=== PATIENT | male | born 1930 | race Caucasian/White ===

== ENCOUNTER 2016-09-15 19:45 | Inpatient (IN) | payer MEDICARE ==
[2016-09-15] MEDS ORDERED: SODIUM CHLORIDE 0.9% 500 ML IV ONE (19:48)
--- NOTE | 2016-09-15 19:55 | ED ---
General Adult HPI - General Source: RN notes reviewed <Rafael Chaudhary - Last Filed: 09/15/16 20:45> <Alonso Haney - Last Filed: 09/15/16 22:11> - General Stated complaint: CVA symptoms Time Seen by Provider: 09/15/16 19:45 - History of Present Illness Initial comments: This is an 85-year-old male who presents emergency Department was extremely hard of hearing. EMS was called seen for a syncopal episode. When they arrived the patient was alert and oriented 4. However in route the patient became unresponsive upon arrival to the emergency department the patient was lethargic but arousable and able to move all 4 extremities and answer very basic questions. Patient is extremely hard of hearing however patient states she has no headache he denies any chest pain he denies any palpitations. Denies any shortness of breath or difficulty breathing. Patient denies any recent fever. Patient denies any abdominal pain patient denies nausea vomiting diarrhea. Patient denies any recent injury or trauma. Patient then when EMS arrived at the house according to EMS because at this time he wasn't sure he was in the hospital and at the house he would've definitely known where he was according to EMS. (Rafael Chaudhary) - Related Data Home Medications Medication Instructions Recorded Confirmed Aspirin EC [Ecotrin Low Dose] 162 mg PO DAILY 09/15/16 09/15/16 Atenolol [Tenormin] 25 mg PO DAILY 09/15/16 09/15/16 Simvastatin [Zocor] 20 mg PO Q48H 09/15/16 09/15/16 Allergies Allergy/AdvReac Type Severity Reaction Status Date / Time No Known Allergies Allergy Verified 09/15/16 20:44 Review of Systems ROS Other: All systems not noted in ROS Statement are negative. <Rafael Chaudhary - Last Filed: 09/15/16 20:45> ROS Other: All systems not noted in ROS Statement are negative. <Alonso Haney - Last Filed: 09/15/16 22:11> ROS Statement: Those systems with pertinent positive or pertinent negative responses have been documented in the HPI. General Exam <Rafael Chaudhary - Last Filed: 09/15/16 20:45> <Alonso Haney - Last Filed: 09/15/16 22:11> - General Exam Comments Initial Comments: GENERAL: Patient is well-developed and well-nourished. Patient is nontoxic and well- hydrated and is in no acute distress. Blood patient is lethargic but arousable with loud verbal ENT: Neck is soft and supple. No significant lymphadenopathy is noted. Oropharynx is clear. Moist mucous membranes. Neck has full range of motion without eliciting any pain. EYES: The sclera were anicteric and conjunctiva were pink and moist. Extraocular movements were intact and pupils were equal round and reactive to light. Eyelids were unremarkable. PULMONARY: Unlabored respirations. Good breath sounds bilaterally. No audible rales rhonchi or wheezing was noted. CARDIOVASCULAR: There is a regular rate and rhythm without any murmurs gallops or rubs. ABDOMEN: Soft and nontender with normal bowel sounds. No palpable organomegaly was noted. There is no palpable pulsatile mass. SKIN: Skin is clear with no lesions or rashes and otherwise unremarkable. NEUROLOGIC: Patient is alert and oriented unable to assess because I don't think he hears the questions accurately but does follow all simple commands. Cranial nerves II through XII are grossly intact. Motor and sensory are also intact. Normal speech, volume and content. Symmetrical smile. MUSCULOSKELETAL: Normal extremities with adequate strength and full range of motion. No lower extremity swelling or edema. No calf tenderness. LYMPHATICS: No significant lymphadenopathy is noted PSYCHIATRIC: Normal psychiatric evaluation. (Rafael Chaudhary) Medical Decision Making - Lab Data Result diagrams: 09/15/16 19:56 <Rafael Chaudhary - Last Filed: 09/15/16 20:45> - Lab Data Result diagrams: 09/15/16 19:56 09/15/16 19:56 <Alonso Haney - Last Filed: 09/15/16 22:11> - Medical Decision Making Patient's EKG shows sinus rhythm at 71 bpm. 160 QRS is under 24 Q-T intervals 454 QTC is 493. Patient has a right bundle branch block. Dr. Haney will be taking over the care of this patient at 9 PM (Rafael Chaudhary) Patient reevaluated by myself, Dr. Haney. Patient is drowsy and is arousable to touch. Patient does attempt to talk. Patient does have some squeezing of his left hand however is able to fully move it and stop doing this. Patient moves all extremities. Patient has limited ability to follow commands. Etiology of syncopal episodes and change in mental status is not clear at this time. Stroke is high in the differential as his seizure. Patient will need to be seen by neurology for further evaluation. Dr. Luisa kelley for admission for Dr. Velazquez. (Alonso Haney) - Lab Data Lab Results 09/15/16 09/15/16 09/15/16 Range/Units 19:56 19:56 19:56 WBC 13.7 H (3.8-10.6) k/uL RBC 5.07 (4.30-5.90) m/uL Hgb 16.5 (13.0-17.5) gm/dL Hct 52.1 (39.0-53.0) % MCV 102.8 H (80.0-100.0) fL MCH 32.5 (25.0-35.0) pg MCHC 31.6 (31.0-37.0) g/dL RDW 13.4 (11.5-15.5) % Plt Count 168 (150-450) k/uL Neutrophils % 77 % Lymphocytes % 16 % Monocytes % 5 % Eosinophils % 1 % Basophils % 1 % Neutrophils # 10.5 H (1.3-7.7) k/uL Lymphocytes # 2.2 (1.0-4.8) k/uL Monocytes # 0.6 (0-1.0) k/uL Eosinophils # 0.1 (0-0.7) k/uL Basophils # 0.1 (0-0.2) k/uL Macrocytosis Slight Sodium 141 (137-145) mmol/L Potassium 5.3 H (3.5-5.1) mmol/L Chloride 103 (98-107) mmol/L Carbon Dioxide 20 L (22-30) mmol/L Anion Gap 18 mmol/L BUN 15 (9-20) mg/dL Creatinine 0.79 (0.66-1.25) mg/dL Est GFR (MDRD) Af Amer >60 (>60 ml/min/1.73 sqM) Est GFR (MDRD) Non-Af >60 (>60 ml/min/1.73 sqM) Glucose 140 H (74-99) mg/dL POC Glucose (mg/dL) (75-99) mg/dL POC Glu Mail Service Coordinator ID Calcium 9.5 (8.4-10.2) mg/dL Total Bilirubin 0.9 (0.2-1.3) mg/dL AST 39 (17-59) U/L ALT 18 L (21-72) U/L Alkaline Phosphatase 106 (38-126) U/L Total Creatine Kinase 88 (55-170) U/L CK-MB (CK-2) 2.3 (0.0-2.4) ng/mL CK-MB (CK-2) Rel Index 2.6 Troponin I <0.012 (0.000-0.034) ng/mL Total Protein 8.7 H (6.3-8.2) g/dL Albumin 4.8 (3.5-5.0) g/dL Urine Color Urine Appearance (Clear) Urine pH (5.0-8.0) Ur Specific [place] (1.001-1.035) Urine Protein (Negative) Urine Glucose (UA) (Negative) Urine Ketones (Negative) Urine Blood (Negative) Urine Nitrate (Negative) Urine Bilirubin (Negative) Urine Urobilinogen (<2.0) mg/dL Ur Leukocyte Esterase (Negative) Urine RBC (0-5) /hpf Urine WBC (0-5) /hpf Hyaline Casts (0-2) /lpf Urine Opiates Screen (NotDetected) Ur Oxycodone Screen (NotDetected) Urine Methadone Screen (NotDetected) Ur Propoxyphene Screen (NotDetected) Ur Barbiturates Screen (NotDetected) U Tricyclic Antidepress (NotDetected) Ur Phencyclidine Scrn (NotDetected) Ur Amphetamines Screen (NotDetected) U Methamphetamines Scrn (NotDetected) U Benzodiazepines Scrn (NotDetected) Urine Cocaine Screen (NotDetected) U Marijuana (THC) Screen (NotDetected) 09/15/16 09/15/16 Range/Units 19:56 20:54 WBC (3.8-10.6) k/uL RBC (4.30-5.90) m/uL Hgb (13.0-17.5) gm/dL Hct (39.0-53.0) % MCV (80.0-100.0) fL MCH (25.0-35.0) pg MCHC (31.0-37.0) g/dL RDW (11.5-15.5) % Plt Count (150-450) k/uL Neutrophils % % Lymphocytes % % Monocytes % % Eosinophils % % Basophils % % Neutrophils # (1.3-7.7) k/uL Lymphocytes # (1.0-4.8) k/uL Monocytes # (0-1.0) k/uL Eosinophils # (0-0.7) k/uL Basophils # (0-0.2) k/uL Macrocytosis Sodium (137-145) mmol/L Potassium (3.5-5.1) mmol/L Chloride (98-107) mmol/L Carbon Dioxide (22-30) mmol/L Anion Gap mmol/L BUN (9-20) mg/dL Creatinine (0.66-1.25) mg/dL Est GFR (MDRD) Af Amer (>60 ml/min/1.73 sqM) Est GFR (MDRD) Non-Af (>60 ml/min/1.73 sqM) Glucose (74-99) mg/dL POC Glucose (mg/dL) 138 H (75-99) mg/dL POC Glu Mail Service Coordinator ID Fanny Hadley Calcium (8.4-10.2) mg/dL Total Bilirubin (0.2-1.3) mg/dL AST (17-59) U/L ALT (21-72) U/L Alkaline Phosphatase (38-126) U/L Total Creatine Kinase (55-170) U/L CK-MB (CK-2) (0.0-2.4) ng/mL CK-MB (CK-2) Rel Index Troponin I (0.000-0.034) ng/mL Total Protein (6.3-8.2) g/dL Albumin (3.5-5.0) g/dL Urine Color Yellow Urine Appearance Clear (Clear) Urine pH 5.5 (5.0-8.0) Ur Specific [place] 1.020 (1.001-1.035) Urine Protein 1+ H (Negative) Urine Glucose (UA) Negative (Negative) Urine Ketones 1+ H (Negative) Urine Blood Negative (Negative) Urine Nitrate Negative (Negative) Urine Bilirubin Negative (Negative) Urine Urobilinogen 2.0 (<2.0) mg/dL Ur Leukocyte Esterase Negative (Negative) Urine RBC 1 (0-5) /hpf Urine WBC 1 (0-5) /hpf Hyaline Casts 66 H (0-2) /lpf Urine Opiates Screen Not Detected (NotDetected) Ur Oxycodone Screen Not Detected (NotDetected) Urine Methadone Screen Not Detected (NotDetected) Ur Propoxyphene Screen Not Detected (NotDetected) Ur Barbiturates Screen Not Detected (NotDetected) U Tricyclic Antidepress Not Detected (NotDetected) Ur Phencyclidine Scrn Not Detected (NotDetected) Ur Amphetamines Screen Not Detected (NotDetected) U Methamphetamines Scrn Not Detected (NotDetected) U Benzodiazepines Scrn Not Detected (NotDetected) Urine Cocaine Screen Not Detected (NotDetected) U Marijuana (THC) Screen Not Detected (NotDetected) Disposition <Rafael Chaudhary - Last Filed: 09/15/16 20:45> <Alonso Haney - Last Filed: 09/15/16 22:11> Clinical Impression: Syncope, Altered mental status Disposition: ADMITTED IP TO THIS [facility] Condition: Serious
--- NOTE | 2016-09-15 20:24 | CT ---
EXAMINATION TYPE: CT brain wo con DATE OF EXAM: 09/15/2016 8:15 PM COMPARISON: NONE HISTORY: Right sided gaze and then patient became unresponsive. CT DLP: 1048.40 mGycm Automated exposure control for dose reduction was used. FINDINGS: There is cerebral cortical atrophy. There is moderate patchy hypodensity in the periventricular white matter. There is no mass effect nor midline shift. There is no sign of intracranial hemorrhage. Calv arium is intact. There is mild mucosal thickening in the right maxillary sinus. IMPRESSION: Moderate cerebral atrophy and chronic small vessel ischemia. No acute intracranial abnormality.
[2016-09-15 20:38] LABS: Basophils # (A) 0.1 k/uL (0-0.2); Basophils % (A) 1 %; CH 32.5; CHCM 31.7; Eosinophils # (A) 0.1 k/uL (0-0.7); Eosinophils % (A) 1 %; HCT 52.1 % (39.0-53.0); HDW 2.29; HGB 16.5 gm/dL (13.0-17.5); Luc # (Auto) 0.15; Luc % (Auto) 1; Lymphocytes # (A) 2.2 k/uL (1.0-4.8); Lymphocytes % (A) 16 %; MCH 32.5 pg (25.0-35.0); MCHC 31.6 g/dL (31.0-37.0); MCV 102.8 fL (80.0-100.0); Macrocytosis Slight; Mean Platelet Volume 10.1; Monocytes # (A) 0.6 k/uL (0-1.0); Monocytes % (A) 5 %; Neutrophils # (A) 10.5 k/uL (1.3-7.7); Neutrophils % (A) 77 %; RBC 5.07 m/uL (4.30-5.90); RDW 13.4 % (11.5-15.5); WBC 13.7 k/uL (3.8-10.6); WBC (Perox) 13.06
[2016-09-15 20:41] LABS: Appearance,Urine Clear (Clear); Bilirubin,Urine Negative (Negative); Glucose,Urine (UA) Negative (Negative); Ketones,Urine 1+ (Negative); Leukocyte Esterase,Urine Negative (Negative); Nitrite,Urine Negative (Negative); PH, Urine 5.5 (5.0-8.0); Particle Count 1510; Protein,Urine 1+ (Negative); RBC,Urine 1 /hpf (0-5); UA Billing (MACRO vs. MICRO) MICRO; WBC,Urine 1 /hpf (0-5)
--- NOTE | 2016-09-15 20:48 | XR ---
EXAMINATION TYPE: XR chest 1V DATE OF EXAM: 09/15/2016 8:33 PM COMPARISON: NONE HISTORY: Altered mental status TECHNIQUE: Single frontal view of the chest is obtained. FINDINGS: There is bilateral extensive calcified pleural plaque. There is no heart failure. There ar e sternal wires. Heart size is probably normal. There is no pleural effusion. 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 IMPRESSION: Extensive calcified pleural plaque. No acute lung disease. No heart failure.
[2016-09-15 20:50] LABS: ALT 18 U/L (21-72); AST 39 U/L (17-59); Alkaline Phosphatase 106 U/L (38-126); Anion Gap 18 mmol/L; Blood Urea Nitrogen 15 mg/dL (9-20); Calcium 9.5 mg/dL (8.4-10.2); Carbon Dioxide 20 mmol/L (22-30); Chloride 103 mmol/L (98-107); Glucose 140 mg/dL (74-99); Non-African American GFR(MDRD) >60 (>60 ml/min/1.73 sqM); Sodium 141 mmol/L (137-145); Total Bilirubin 0.9 mg/dL (0.2-1.3); Total Protein 8.7 g/dL (6.3-8.2)
[2016-09-15 20:54] LABS: Potassium 5.3 mmol/L (3.5-5.1)
[2016-09-15] MEDS ORDERED: hydrALAZINE HCL 20 MG/ML 1 ML VIAL IVP STA (20:58)
[2016-09-15 20:59] LABS: Creatine Kinase 88 U/L (55-170)
[2016-09-15 21:12] LABS: Creatine Kinase MB 2.3 ng/mL (0.0-2.4); Troponin I <0.012 ng/mL (0.000-0.034)
[2016-09-15 21:14] LABS: Glucose,Whole Blood 138 mg/dL (75-99)
[2016-09-15] MEDS ORDERED: PHENYTOIN SODIUM INJ 1,000 MG in SODIUM CHLORIDE 0.9% 100 ML IVPB STA (22:07)
[2016-09-15 22:09] LABS: INR 1.1 (<1.1); Partial Thromboplastin Time 23.8 sec (22.0-30.0); Prothrombin Time 11.1 sec (9.0-12.0)
[2016-09-15] MEDS ORDERED: ASPIRIN 325 MG TAB PO STA (22:12)
[2016-09-15] MEDS: SODIUM CHLORIDE 0.9% 1,000 ML IV SCH (22:38)
--- NOTE | 2016-09-15 22:52 | ED ---
Medical Decision Making - Medical Decision Making GCS was 11. - Lab Data Result diagrams: 09/15/16 19:56 09/15/16 19:56 Lab Results 09/15/16 09/15/16 09/15/16 Range/Units 19:56 19:56 19:56 WBC 13.7 H (3.8-10.6) k/uL RBC 5.07 (4.30-5.90) m/uL Hgb 16.5 (13.0-17.5) gm/dL Hct 52.1 (39.0-53.0) % MCV 102.8 H (80.0-100.0) fL MCH 32.5 (25.0-35.0) pg MCHC 31.6 (31.0-37.0) g/dL RDW 13.4 (11.5-15.5) % Plt Count 168 (150-450) k/uL Neutrophils % 77 % Lymphocytes % 16 % Monocytes % 5 % Eosinophils % 1 % Basophils % 1 % Neutrophils # 10.5 H (1.3-7.7) k/uL Lymphocytes # 2.2 (1.0-4.8) k/uL Monocytes # 0.6 (0-1.0) k/uL Eosinophils # 0.1 (0-0.7) k/uL Basophils # 0.1 (0-0.2) k/uL Macrocytosis Slight PT (9.0-12.0) sec INR (<1.1) APTT (22.0-30.0) sec Sodium 141 (137-145) mmol/L Potassium 5.3 H (3.5-5.1) mmol/L Chloride 103 (98-107) mmol/L Carbon Dioxide 20 L (22-30) mmol/L Anion Gap 18 mmol/L BUN 15 (9-20) mg/dL Creatinine 0.79 (0.66-1.25) mg/dL Est GFR (MDRD) Af Amer >60 (>60 ml/min/1.73 sqM) Est GFR (MDRD) Non-Af >60 (>60 ml/min/1.73 sqM) Glucose 140 H (74-99) mg/dL POC Glucose (mg/dL) (75-99) mg/dL POC Glu Event Sales Assistant ID Calcium 9.5 (8.4-10.2) mg/dL Total Bilirubin 0.9 (0.2-1.3) mg/dL AST 39 (17-59) U/L ALT 18 L (21-72) U/L Alkaline Phosphatase 106 (38-126) U/L Total Creatine Kinase 88 (55-170) U/L CK-MB (CK-2) 2.3 (0.0-2.4) ng/mL CK-MB (CK-2) Rel Index 2.6 Troponin I <0.012 (0.000-0.034) ng/mL Total Protein 8.7 H (6.3-8.2) g/dL Albumin 4.8 (3.5-5.0) g/dL Urine Color Urine Appearance (Clear) Urine pH (5.0-8.0) Ur Specific [place] (1.001-1.035) Urine Protein (Negative) Urine Glucose (UA) (Negative) Urine Ketones (Negative) Urine Blood (Negative) Urine Nitrate (Negative) Urine Bilirubin (Negative) Urine Urobilinogen (<2.0) mg/dL Ur Leukocyte Esterase (Negative) Urine RBC (0-5) /hpf Urine WBC (0-5) /hpf Hyaline Casts (0-2) /lpf Urine Opiates Screen (NotDetected) Ur Oxycodone Screen (NotDetected) Urine Methadone Screen (NotDetected) Ur Propoxyphene Screen (NotDetected) Ur Barbiturates Screen (NotDetected) U Tricyclic Antidepress (NotDetected) Ur Phencyclidine Scrn (NotDetected) Ur Amphetamines Screen (NotDetected) U Methamphetamines Scrn (NotDetected) U Benzodiazepines Scrn (NotDetected) Urine Cocaine Screen (NotDetected) U Marijuana (THC) Screen (NotDetected) 09/15/16 09/15/16 09/15/16 Range/Units 19:56 20:54 21:53 WBC (3.8-10.6) k/uL RBC (4.30-5.90) m/uL Hgb (13.0-17.5) gm/dL Hct (39.0-53.0) % MCV (80.0-100.0) fL MCH (25.0-35.0) pg MCHC (31.0-37.0) g/dL RDW (11.5-15.5) % Plt Count (150-450) k/uL Neutrophils % % Lymphocytes % % Monocytes % % Eosinophils % % Basophils % % Neutrophils # (1.3-7.7) k/uL Lymphocytes # (1.0-4.8) k/uL Monocytes # (0-1.0) k/uL Eosinophils # (0-0.7) k/uL Basophils # (0-0.2) k/uL Macrocytosis PT 11.1 (9.0-12.0) sec INR 1.1 (<1.1) APTT 23.8 (22.0-30.0) sec Sodium (137-145) mmol/L Potassium (3.5-5.1) mmol/L Chloride (98-107) mmol/L Carbon Dioxide (22-30) mmol/L Anion Gap mmol/L BUN (9-20) mg/dL Creatinine (0.66-1.25) mg/dL Est GFR (MDRD) Af Amer (>60 ml/min/1.73 sqM) Est GFR (MDRD) Non-Af (>60 ml/min/1.73 sqM) Glucose (74-99) mg/dL POC Glucose (mg/dL) 138 H (75-99) mg/dL POC Glu Event Sales Assistant ID Fanny Hadley Calcium (8.4-10.2) mg/dL Total Bilirubin (0.2-1.3) mg/dL AST (17-59) U/L ALT (21-72) U/L Alkaline Phosphatase (38-126) U/L Total Creatine Kinase (55-170) U/L CK-MB (CK-2) (0.0-2.4) ng/mL CK-MB (CK-2) Rel Index Troponin I (0.000-0.034) ng/mL Total Protein (6.3-8.2) g/dL Albumin (3.5-5.0) g/dL Urine Color Yellow Urine Appearance Clear (Clear) Urine pH 5.5 (5.0-8.0) Ur Specific [place] 1.020 (1.001-1.035) Urine Protein 1+ H (Negative) Urine Glucose (UA) Negative (Negative) Urine Ketones 1+ H (Negative) Urine Blood Negative (Negative) Urine Nitrate Negative (Negative) Urine Bilirubin Negative (Negative) Urine Urobilinogen 2.0 (<2.0) mg/dL Ur Leukocyte Esterase Negative (Negative) Urine RBC 1 (0-5) /hpf Urine WBC 1 (0-5) /hpf Hyaline Casts 66 H (0-2) /lpf Urine Opiates Screen Not Detected (NotDetected) Ur Oxycodone Screen Not Detected (NotDetected) Urine Methadone Screen Not Detected (NotDetected) Ur Propoxyphene Screen Not Detected (NotDetected) Ur Barbiturates Screen Not Detected (NotDetected) U Tricyclic Antidepress Not Detected (NotDetected) Ur Phencyclidine Scrn Not Detected (NotDetected) Ur Amphetamines Screen Not Detected (NotDetected) U Methamphetamines Scrn Not Detected (NotDetected) U Benzodiazepines Scrn Not Detected (NotDetected) Urine Cocaine Screen Not Detected (NotDetected) U Marijuana (THC) Screen Not Detected (NotDetected) Disposition Clinical Impression: Syncope, Altered mental status Disposition: ADMITTED IP TO THIS [facility] Condition: Serious
[2016-09-16 00:38] LABS: Glucose,Whole Blood 162 mg/dL (75-99)
[2016-09-16 01:21] LABS: Glucose,Whole Blood 153 mg/dL (75-99)
[2016-09-16] MEDS ORDERED: RX INFO: IV CONTRAST WAS GIVEN 1 EACH MISC MISCELLANE PRN (02:32)
--- NOTE | 2016-09-16 03:56 | CT ---
EXAMINATION TYPE: CT angio chest DATE OF EXAM: 09/16/2016 3:41 AM COMPARISON: NONE HISTORY: R/O PE, Elevated D-D-dimer CT DLP: 263.10 mGycm Automated exposure control for dose reduction was used. CONTRAST: CTA scan of the thorax is performed with IV Contrast, patient injected with 80 mL of Omnipaque 350, p ulmonary embolism protocol. . FINDINGS: LUNGS: Mild infiltrates and atelectatic changes are noted in both lung bases posteriorly worse on the right side with emphysematous changes. Calcified density pleural plaques are noted in the right lung base and along the bilateral pleural sp aces and a clinical correlation is recommended for asbestos exposure. There is no pleural effusion or pneumothorax seen. The tracheobronchial tree is patent. MEDIASTINUM: There is satisfactory enhancement of the pulmonary artery and its branches, there is no CT evidence for pulmonary embolism. There are no greater than 1 cm hilar or mediastinal lymph nodes. No pericardial effusion is seen. Postsurgical changes of sternotomy are noted. The ascending aorta measures 3.3 cm in greatest AP diam eter without significant aneurysm. OTHER: Mild hypertrophic changes and nodularity is noted in both adrenal glands with possible small adrenal adenomas in the visualized abdomen. Moderate fluid and gas distention of stomach is noted in the abdomen. Multilevel degenerative changes are present in the thoracolumbar spine. Mild old wedge compression fr acture deformities are noted in the thoracic and lumbar vertebrae of chronic nature. There is fluid distended esophagus in the chest. Possibility of inflammatory process of the esophagus cannot be excluded. IMPRESSION: NO EVIDENCE OF ACUTE PULMONARY EMBOLISM. MILD INFILTRATES AND ATELECTATIC CHANGES IN BOTH LUNG BASES WORSE ON THE RIGHT SIDE. CALCIFIED DENSITIES BILATERAL PLEURAL PLAQUES DESCRIBED ABOVE AND A CLINICAL CORRELATION IS RECOMM ENDED FOR ASBESTOS EXPOSURE. THERE IS FLUID DISTENDED ESOPHAGUS AND POSSIBILITY OF INFLAMMATORY PROCESS OF ESOPHAGUS CANNOT BE EXC LUDED.
[2016-09-16 05:13] LABS: CH 32.3; CHCM 32.2; HCT 50.1 % (39.0-53.0); HDW 2.25; MCH 32.2 pg (25.0-35.0); MCV 100.7 fL (80.0-100.0); Mean Platelet Volume 9.2; RBC 4.97 m/uL (4.30-5.90); RDW 13.1 % (11.5-15.5); WBC 10.9 k/uL (3.8-10.6)
[2016-09-16 05:23] LABS: Anion Gap 14 mmol/L; Blood Urea Nitrogen 11 mg/dL (9-20); Calcium 9.2 mg/dL (8.4-10.2); Carbon Dioxide 22 mmol/L (22-30); Chloride 103 mmol/L (98-107); Glucose 124 mg/dL (74-99); Magnesium 1.6 mg/dL (1.6-2.3); Non-African American GFR(MDRD) >60 (>60 ml/min/1.73 sqM); Potassium 4.5 mmol/L (3.5-5.1); Sodium 139 mmol/L (137-145)
[2016-09-16] MEDS ORDERED: Magnesium Replacement Protocol 1 EACH MISC MISCELLANE PRN (06:22)
--- NOTE | 2016-09-16 06:41 | US ---
EXAMINATION TYPE: US carotid duplex BILAT DATE OF EXAM: 09/15/2016 11:26 PM COMPARISON: NONE CLINICAL HISTORY: CVA symptoms, stenosis. Admitted for altered mental status and vision changes earli er today. EXAM MEASUREMENTS: RIGHT: Peak Systolic Velocity (PSV) cm/sec ----- Right CCA: 54.0 ----- Right ICA: 94.3 ----- Right ECA: 114.5 ICA/CCA ratio: 1.7 RIGHT: End Diastole cm/sec ----- Right CCA: 9.2 ----- Right ICA: 15.4 ----- Right ECA: 3.1 LEFT: Peak Systolic Velocity (PSV) cm/sec ----- Left CCA: 72.4 ----- Left ICA: 127.4 ----- Left ECA: 108.2 ICA/CCA ratio: 1.8 LEFT: End Diastole cm/sec ----- Left CCA: 14.2 ----- Left ICA: 32.1 ----- Left ECA: 18.0 VERTEBRALS (direction of flow): Right Vertebral: Antegrade Left Vertebral: Antegrade TECHNOLOGIST IMPRESSION: Exam suboptimal due to patient noncooperation per technologist. Fairly moderate to severe shadowing p laque is seen in the carotid bulb level bilaterally. Velocity measurements in left internal carotid a rtery are upper limits of normal. Cephalad flow is seen in both vertebral arteries though left verteb ral artery was more difficult to detect per technologist. IMPRESSION: Moderate to severe atherosclerotic changes bilaterally without hemodynamically significa nt stenosis clearly seen in either internal carotid artery
[2016-09-16] MEDS: MAGNESIUM SULFATE-D5W PMX 1 GM in DEXTROSE/WATER 1 100ML.BAG IVPB SCH ×2 (06:44→08:21)
[2016-09-16] MEDS: SODIUM CHLORIDE 0.9% 1,000 ML IV SCH ×3 (08:22→22:18)
[2016-09-16] MEDS: FAMOTIDINE 20 MG/2 ML VIAL IV SCH ×2 (08:50→22:18)
[2016-09-16] MEDS ORDERED: ENOXAPARIN 100 MG/ML SYRINGE SQ SCH (09:00)
[2016-09-16] MEDS ORDERED: IV VANCOMYCIN PER PHARMACY 1 EACH MISC MISCELLANE PRN (09:35)
[2016-09-16] MEDS ORDERED: ACYCLOVIR SODIUM IV ONE (09:36)
[2016-09-16] MEDS ORDERED: SODIUM CHLORIDE 0.9% IV ONE (09:36)
[2016-09-16] MEDS ORDERED: ACETAMINOPHEN IV (For NPO) 1,000 MG in EMPTY BAG 1 BAG IVPB ONE (09:51)
[2016-09-16 10:01] LABS: ABG HCO3 22 mmol/L (21-25); ABG PCO2 30 mmHg (35-45); ABG PH 7.47 (7.35-7.45); ABG PO2 79 mmHg (83-108); ABG TCO2 22 mmol/L (19-24)
[2016-09-16] MEDS: VANCOMYCIN 1,250 MG in SODIUM CHLORIDE 0.9% 250 ML IVPB SCH (10:16)
--- NOTE | 2016-09-16 10:25 | US ---
EXAMINATION TYPE: US venous doppler duplex LE DATE OF EXAM: 09/16/2016 9:16 AM COMPARISON: Same day CTA chest exam. CLINICAL HISTORY: Elevated D-dimer, no other history obtained, tech unable to wake patient. SIDE PERFORMED: Bilateral VESSELS IMAGED: External Iliac Vein (EIV) Common Femoral Vein Deep Femoral Vein Greater Saphenous Vein * Femoral Vein Popliteal Vein Proximal Calf Veins (* superficial vessels) TECHNOLOGIST IMPRESSION: Right Leg: Appears negative for DVT Left Leg: Appears negative for DVT There is satisfactory color flow, phasicity, and compressibility seen in the bilateral lower extremit ies at the above structures. IMPRESSION: No ultrasound evidence for acute DVT in either lower extremity.
--- NOTE | 2016-09-16 11:02 | CT ---
EXAMINATION TYPE: CT brain wo con DATE OF EXAM: 09/16/2016 10:35 AM COMPARISON: 09/15/2016 HISTORY: 85-year-old male Unresponsive TECHNIQUE: Examination was done in axial plane without intravenous contrast. Coronal and sagittal reconstructio ns performed. CT DLP: 1034.8 mGycm Automated exposure control for dose reduction was used. FINDINGS: There is redemonstrated moderate atrophy and patchy and confluent white matter hypodensities in both cerebral hemispheres. As compared to 09/15/2016, there is new cortical and subcortical hypodensity at the left parieto-occip ital junction, axial image 18, coronal image 55, sagittal image 32. Additional extensive new hypodensity throughout the left cerebellar hemisphere, axial image 11. There is no mass effect or evidence for acute intracranial hemorrhage. There is mild mucosal thickening within the right maxillary sinus. IMPRESSION: New cortical and subcortical hypodensity at the left parieto-occipital junction and extensive hypoden sity in the left cerebellar hemisphere. Findings suggest evolving acute infarcts. No significant mass effect or acute intracranial hemorrhage. Findings called to nurse Kwame and 6-ICU at approximately 10:58 AM.
--- NOTE | 2016-09-16 11:13 | ECHOF ---
Referral Reason:Thrombus MEASUREMENTS -------- HEIGHT: 180.3 cm WEIGHT: 62.6 kg BP: 141/74 IVSd: 1.3 cm (0.6 - 1.1) LVIDd: 3.7 cm (3.9 - 5.3) LVPWd: 1.2 cm (0.6 - 1.1) IVSs: 1.7 cm LVIDs: 2.4 cm LVPWs: 1.5 cm Ao Diam: 3.5 cm (2.0 - 3.7) AV Cusp: 1.1 cm (1.5 - 2.6) LA Diam: 3.6 cm (2.7 - 3.8) MV EXCURSION: 9.371 mm (> 18.000) MV EF SLOPE: 88 mm/s (70 - 150) EPSS: 0.4 cm MV E Jacinto: 0.64 m/s MV DecT: 200 ms MV A Jacinto: 0.79 m/s MV E/A Ratio: 0.82 AV maxP.57 mmHg AV meanP.64 mmHg RAP: 5.00 mmHg RVSP: 15.39 mmHg FINDINGS -------- Sinus rhythm with extra systolic beats. This was a technically good study. There is mild concentric left ventricular hypertrophy. Overall left ventricular systolic function is normal with, an EF between 55 - 60 %. There is paradoxical/dysynergic septal motion consistent with post-operative status. The right ventricle is normal in size and function. The left atrium is normal in size. The right atrium is normal in size. Aortic valve is trileaflet and is moderately thickened. There is mild aortic stenosis present. The mitral valve leaflets are mildly thickened. Mild mitral annular calcification present. Mild mitral regurgitation is present. Mild tricuspid regurgitation present. The right ventricular systolic pressure, as measured by Doppler, is 15.39mmHg. Pulmonic valve appears structurally normal. The aortic root, ascending aorta and aortic arch are normal. The pericardium is normal. CONCLUSIONS -------- 1. Sinus rhythm with extra systolic beats. 2. There is mild aortic stenosis present. 3. The mitral valve leaflets are mildly thickened. 4. Mild mitral annular calcification present. 5. Mild mitral regurgitation is present. 6. Mild tricuspid regurgitation present. 7. The right ventricular systolic pressure, as measured by Doppler, is 15.39mmHg. 8. Pulmonic valve appears structurally normal. 9. The aortic root, ascending aorta and aortic arch are normal. 10. The pericardium is normal. 11. This was a technically good study. 12. There is mild concentric left ventricular hypertrophy. 13. Overall left ventricular systolic function is normal with, an EF between 55 - 60 %. 14. There is paradoxical/dysynergic septal motion consistent with post-operative status. 15. The right ventricle is normal in size and function. 16. The left atrium is normal in size. 17. The right atrium is normal in size. 18. Aortic valve is trileaflet and is moderately thickened. PRODUCTION EXPERT: Shira Camarena RDCS
[2016-09-16] MEDS: cefTRIAXone 2,000 MG in SODIUM CHLORIDE 0.9% 100 ML IVPB SCH (12:22)
[2016-09-16] MEDS: AMPICILLIN 1,000 MG in SODIUM CHLORIDE 0.9% 50 ML IVPB SCH ×2 (12:22→17:50)
[2016-09-16 12:24] LABS: Cholesterol 155 mg/dL (<200); HDL Cholesterol 54 mg/dL (40-60); Triglycerides 55 mg/dL (<150)
--- NOTE | 2016-09-16 12:24 | P.HPIM ---
History of Present Illness H&P Date: 09/16/16 Chief Complaint: Syncope This is an 85-year-old male. His primary care physician is Dr. Puma Velazquez. He has a known past medical history of hypertension and hyperlipidemia. No information is able to be obtained from the patient and no family is available. According to the ER notes, patient was at home but had been shopping earlier at [facility] and EMS was called due to a syncopal episode. When EMS arrived the patient was alert and oriented but enroute to the hospital he became unresponsive. Initially in the emergency center, he was lethargic but arousable and able to move all 4 extremities and answer very basic questions. He denied headache, chest pain, palpitations, shortness of breath, fever, abdominal pain, nausea, vomiting, diarrhea, dysuria, trauma. In the emergency center, patient was afebrile. Blood pressure was elevated at 202/95. Pulse ox was 97% on 2 L. Initial leukocytosis at 13.7, d-dimer 3.67, potassium 5.3 and CO2 20, GFR greater than 60, blood sugar 140. Troponin normal. Urinalysis was clear nitrate and leukoesterase negative. Urine drug screen was negative. CAT scan of the brain showed moderate cerebral atrophy and chronic small vessel ischemia with no acute abnormality. Chest x-ray shows extensive calcified pleural plaque. No acute lung disease. No heart failure. Patient was admitted to the intensive care unit as an overflow for selective care. He has subsequently developed a temperature max of 102.5. He has minimal response to sternal rub. Repeat troponin of 0.032. Influenza testing A and B negative. Carotid Doppler shows moderate to severe atherosclerotic changes bilaterally without hemodynamically significant stenosis. CTA of the chest showed no evidence of acute pulmonary embolism. Mild infiltrates and atelectatic changes in both lung bases worse on the right, possible asbestos exposure, fluid distended esophagus and possibility of inflammatory process of the esophagus not excluded. Ultrasound venous Doppler duplex of the bilateral lower extremities was negative for DVT. Echocardiogram reveals mild aortic stenosis, mild mitral regurgitation, mild tricuspid regurgitation, mild concentric left ventricular hypertrophy, EF 55-60%. Repeat CAT scan of the brain shows new cortical and subcortical hypodensity at the left parietal occipital junction and extensive hypodensity in the left cerebral hemisphere suggestive of evolving acute infarcts. Dr. Rendon was initially called for agnostic lumbar puncture but because he has received Lovenox subcu, lumbar puncture was not completed. Subsequently the CAT scan revealed numerous evolving strokes and consult with Dr. Dr. Rendon and lumbar puncture orders canceled. Patient has been started on ceftriaxone and ampicillin and vancomycin. Consults currently in place with Dr. Romo, Dr. Freeman, Dr. Kwok and Dr. Shultz. PT, OT, speech therapy all in place. Review of Systems ROS unobtainable: due to mental status Past Medical History Past Medical History: Unable to Obtain, Hyperlipidemia, Hypertension History of Any Multi-Drug Resistant Organisms: Unobtainable Past Surgical History: Unable to Obtain Past Psychological History: Unable to Obtain Smoking Status: Unknown if ever smoked Past Alcohol Use History: Unable to Obtain Past Drug Use History: Unable to Obtain - Past Family History Father Family Medical History: Congestive Heart Failure (CHF) Mother Family Medical History: CVA/TIA Medications and Allergies Home Medications Medication Instructions Recorded Confirmed Type Aspirin EC [Ecotrin Low Dose] 162 mg PO DAILY 09/15/16 09/15/16 History Atenolol [Tenormin] 25 mg PO DAILY 09/15/16 09/15/16 History Simvastatin [Zocor] 20 mg PO Q48H 09/15/16 09/15/16 History Allergies Allergy/AdvReac Type Severity Reaction Status Date / Time No Known Allergies Allergy Verified 09/15/16 20:44 Physical Exam Vitals: Vital Signs Temp Pulse Pulse Resp BP BP Pulse Ox 09/16/16 09:00 101.5 F H 95 27 H 130/84 09/16/16 08:00 100.1 F H 89 30 H 130/84 84 L 09/16/16 07:00 82 22 150/80 94 L 09/16/16 06:00 93 31 H 150/80 94 L 09/16/16 05:12 105 H 24 148/76 09/16/16 04:00 98.5 F 95 24 161/85 97 09/16/16 03:12 98 22 150/80 09/16/16 01:20 98.9 F 111 H 21 149/79 92 L 09/16/16 01:03 98.6 F 108 H 26 H 123/65 95 09/15/16 23:34 98.7 F 112 H 24 117/80 95 09/15/16 22:41 74 16 161/64 96 Intake and Output 09/15/16 09/16/16 09/16/16 22:59 06:59 14:59 Intake Total 500 Output Total 815 Balance -315 Intake: IV 500 Sodium Chloride 0.9% 1, 500 000 ml @ 100 mls/hr IV . Q10H [facility] Rx#:[id number] Output: Urine 815 Other: Voiding Method Indwelling Catheter Weight 62.87 kg Gen: This is an 85-year-old male. He is seen in the intensive care unit. HEENT: Head is atraumatic, normocephalic. Pupils equal, round. Sclerae is anicteric. Conjunctiva pink. NECK: Supple. No JVD. No lymphadenopathy. No thyromegaly. LUNGS: Snoring respirations. Clear to auscultation. No wheezes or rhonchi. No intercostal retractions. HEART: Regular rate and rhythm. No murmur. ABDOMEN: Soft. Bowel sounds are present. No masses. No tenderness. EXTREMITIES: No pedal edema. No calf tenderness. NEUROLOGICAL: Patient is obtunded with minimal response to sternal rub. Results CBC & Chem 7: 09/16/16 04:30 09/16/16 04:30 Labs: Abnormal Lab Results - Last 24 Hours (Table) 09/16/16 09/16/16 09/16/16 Range/Units 00:36 01:19 04:30 WBC 10.9 H (3.8-10.6) k/uL MCV 100.7 H (80.0-100.0) fL ABG pH (7.35-7.45) ABG pCO2 (35-45) mmHg ABG pO2 (83-108) mmHg Creatinine (0.66-1.25) mg/dL Glucose (74-99) mg/dL POC Glucose (mg/dL) 162 H 153 H (75-99) mg/dL 09/16/16 09/16/16 Range/Units 04:30 09:45 WBC (3.8-10.6) k/uL MCV (80.0-100.0) fL ABG pH 7.47 H (7.35-7.45) ABG pCO2 30 L (35-45) mmHg ABG pO2 79 L (83-108) mmHg Creatinine 0.60 L (0.66-1.25) mg/dL Glucose 124 H (74-99) mg/dL POC Glucose (mg/dL) (75-99) mg/dL Microbiology - Last 24 Hours (Table) 09/16/16 01:32 Urine Culture - Preliminary Urine,Catheterized Thrombosis Risk Factor Assmnt - DVT/VTE Prophylaxis DVT/VTE Prophylaxis: Pharmacologic Prophylaxis ordered Assessment and Plan Plan: 1. 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 Consult with neurology. EEG is pending. Continue neuro checks. PT OT and speech therapy are on consult. Rule out seizure disorder. Patient did receive mannitol and in the emergency center 1 dose. Patient also noted to be febrile. Unclear if this is only related to stroke or if there is underlying infectious process such as pneumonia. Dr. Kwok is on consult. Patient is currently on ampicillin, vancomycin and ceftriaxone. Acyclovir was discontinued as patient is not suspected of having meningitis. Intensive care management by Dr. Sullivan. Patient is currently on aspirin 300 mg rectally daily and Lovenox. 2. Possible aspiration pneumonia found on repeat chest x-ray. There is mild infiltrate and atelectatic changes. Antibiotics per Dr. Kwok. 3. Syncopal episode at home. Cardiology is on consult. Echocardiogram as above. 4. Hypertension. Hydralazine as needed. 5. Hyperlipidemia. 6. Gastrointestinal prophylaxis. Continue Pepcid 20 mg IV every 12 hours.. 7. DVT prophylaxis. Patient on Lovenox. 8. CODE STATUS: No code. 9. Prognosis guarded. Patient will be admitted to the hospital for a minimum of 5 night stay. Discharge plan: To be determined Impression and plan of care have been directed as dictated by the signing physician. Robyn Cai nurse practitioner acting as scribe for signing physician. Time with Patient: Greater than 30
--- NOTE | 2016-09-16 12:28 | P.CONS ---
History of Present Illness - Reason for Consult Consult date: 09/16/16 Fever, possible pneumonia - History of Present Illness This is an 85-year-old male. He has a known past medical history of hypertension and hyperlipidemia. No information is able to be obtained from the patient and no family is available. According to the ER notes, patient was at home but had been shopping earlier at [facility] and EMS was called due to a syncopal episode. When EMS arrived the patient was alert and oriented but enroute to the hospital he became unresponsive. Initially in the emergency center, he was lethargic but arousable and able to move all 4 extremities and answer very basic questions. He denied headache, chest pain, palpitations, shortness of breath, fever, abdominal pain, nausea, vomiting, diarrhea, dysuria , trauma. In the emergency center, patient was afebrile. Blood pressure was elevated at 202/95. Pulse ox was 97% on 2 L. Initial leukocytosis at 13.7, d- dimer 3.67, potassium 5.3 and CO2 20, GFR greater than 60, blood sugar 140. Troponin normal. Urinalysis was clear nitrate and leukoesterase negative. Urine drug screen was negative. CAT scan of the brain showed moderate cerebral atrophy and chronic small vessel ischemia with no acute abnormality. Chest x- ray shows extensive calcified pleural plaque. No acute lung disease. No heart failure. Patient was admitted to the intensive care unit as an overflow for selective care. He has subsequently developed a temperature max of 102.5. He has minimal response to sternal rub. Repeat troponin of 0.032. Influenza testing A and B negative. Albumin 4.8 Carotid Doppler shows moderate to severe atherosclerotic changes bilaterally without hemodynamically significant stenosis. CTA of the chest showed no evidence of acute pulmonary embolism. Mild infiltrates and atelectatic changes in both lung bases worse on the right, possible asbestos exposure, fluid distended esophagus and possibility of inflammatory process of the esophagus not excluded. Ultrasound venous Doppler duplex of the bilateral lower extremities was negative for DVT. Echocardiogram reveals mild aortic stenosis, mild mitral regurgitation, mild tricuspid regurgitation, mild concentric left ventricular hypertrophy, EF 55-60%. Repeat CAT scan of the brain shows new cortical and subcortical hypodensity at the left parietal occipital junction and extensive hypodensity in the left cerebral hemisphere suggestive of evolving acute infarcts. Dr. Rendon was initially called for agnostic lumbar puncture but because he has received Lovenox subcu, lumbar puncture was not completed. Subsequently the CAT scan revealed numerous evolving strokes and consult with Dr. Dr. Rendon and lumbar puncture orders canceled. Patient has been started on ceftriaxone and ampicillin and vancomycin. Consults currently in place with Dr. Romo, Dr. Freeman, Dr. Kwok and Dr. Shultz. PT, OT, speech therapy all in place. Urine culture in process. Blood culture 2 ordered. Review of Systems ROS unobtainable: due to mental status Past Medical History Past Medical History: Unable to Obtain History of Any Multi-Drug Resistant Organisms: Unobtainable Past Surgical History: Unable to Obtain Past Psychological History: Unable to Obtain Smoking Status: Unknown if ever smoked Past Alcohol Use History: Unable to Obtain Past Drug Use History: Unable to Obtain - Past Family History Father Family Medical History: Congestive Heart Failure (CHF) Mother Family Medical History: CVA/TIA Medications and Allergies Home Medications Medication Instructions Recorded Confirmed Type Aspirin EC [Ecotrin Low Dose] 162 mg PO DAILY 09/15/16 09/15/16 History Atenolol [Tenormin] 25 mg PO DAILY 09/15/16 09/15/16 History Simvastatin [Zocor] 20 mg PO Q48H 09/15/16 09/15/16 History Allergies Allergy/AdvReac Type Severity Reaction Status Date / Time No Known Allergies Allergy Verified 09/15/16 20:44 Physical Exam Vitals: Vital Signs Temp Pulse Pulse Resp BP BP Pulse Ox 09/16/16 09:00 101.5 F H 95 27 H 130/84 09/16/16 08:00 100.1 F H 89 30 H 130/84 84 L 09/16/16 07:00 82 22 150/80 94 L 09/16/16 06:00 93 31 H 150/80 94 L 09/16/16 05:12 105 H 24 148/76 09/16/16 04:00 98.5 F 95 24 161/85 97 09/16/16 03:12 98 22 150/80 09/16/16 01:20 98.9 F 111 H 21 149/79 92 L 09/16/16 01:03 98.6 F 108 H 26 H 123/65 95 09/15/16 23:34 98.7 F 112 H 24 117/80 95 09/15/16 22:41 74 16 161/64 96 Intake and Output 09/15/16 09/16/16 09/16/16 22:59 06:59 14:59 Intake Total 500 Output Total 815 Balance -315 Intake: IV 500 Sodium Chloride 0.9% 1, 500 000 ml @ 100 mls/hr IV . Q10H [facility] Rx#:[id number] Output: Urine 815 Other: Voiding Method Indwelling Catheter Weight 62.87 kg Gen: This is an 85-year-old male. He is seen in the intensive care unit. HEENT: Head is atraumatic, normocephalic. Pupils equal, round. Sclerae is anicteric. Conjunctiva pink. NECK: Supple. No JVD. No lymphadenopathy. No thyromegaly. LUNGS: Snoring respirations. Clear to auscultation. No wheezes or rhonchi. No intercostal retractions. HEART: Regular rate and rhythm. No murmur. ABDOMEN: Soft. Bowel sounds are present. No masses. No tenderness. EXTREMITIES: No pedal edema. No calf tenderness. NEUROLOGICAL: Patient is obtunded with minimal response to sternal rub. Results Results: Laboratory Results WBC 10.9 k/uL (3.8-10.6) H 09/16/16 04:30 RBC 4.97 m/uL (4.30-5.90) 09/16/16 04:30 Hgb 16.0 gm/dL (13.0-17.5) 09/16/16 04:30 Hct 50.1 % (39.0-53.0) 09/16/16 04:30 MCV 100.7 fL (80.0-100.0) H 09/16/16 04:30 MCH 32.2 pg (25.0-35.0) 09/16/16 04:30 MCHC 32.0 g/dL (31.0-37.0) 09/16/16 04:30 RDW 13.1 % (11.5-15.5) 09/16/16 04:30 Plt Count 182 k/uL (150-450) 09/16/16 04:30 Neutrophils % 77 % 09/15/16 19:56 Lymphocytes % 16 % 09/15/16 19:56 Monocytes % 5 % 09/15/16 19:56 Eosinophils % 1 % 09/15/16 19:56 Basophils % 1 % 09/15/16 19:56 Neutrophils # 10.5 k/uL (1.3-7.7) H 09/15/16 19:56 Lymphocytes # 2.2 k/uL (1.0-4.8) 09/15/16 19:56 Monocytes # 0.6 k/uL (0-1.0) 09/15/16 19:56 Eosinophils # 0.1 k/uL (0-0.7) 09/15/16 19:56 Basophils # 0.1 k/uL (0-0.2) 09/15/16 19:56 Macrocytosis Slight 09/15/16 19:56 PT 11.1 sec (9.0-12.0) 09/15/16 21:53 INR 1.1 (<1.1) 09/15/16 21:53 APTT 23.8 sec (22.0-30.0) 09/15/16 21:53 D-Dimer 3.67 mg/L FEU (<0.60) H 09/15/16 21:53 [facility] 09/16/16 09:45 ABG pH 7.47 (7.35-7.45) H 09/16/16 09:45 ABG pCO2 30 mmHg (35-45) L 09/16/16 09:45 ABG pO2 79 mmHg (83-108) L 09/16/16 09:45 ABG HCO3 22 mmol/L (21-25) 09/16/16 09:45 ABG Total CO2 22 mmol/L (19-24) 09/16/16 09:45 ABG O2 Saturation 97.0 % (94-97) 09/16/16 09:45 ABG Base Excess -2.0 mmol/L 09/16/16 09:45 FiO2 36 % 09/16/16 09:45 Sodium 139 mmol/L (137-145) 09/16/16 04:30 Potassium 4.5 mmol/L (3.5-5.1) 09/16/16 04:30 Chloride 103 mmol/L (98-107) 09/16/16 04:30 Carbon Dioxide 22 mmol/L (22-30) 09/16/16 04:30 Anion Gap 14 mmol/L 09/16/16 04:30 BUN 11 mg/dL (9-20) 09/16/16 04:30 Creatinine 0.60 mg/dL (0.66-1.25) L 09/16/16 04:30 Est GFR (MDRD) Af Amer >60 (>60 ml/min/1.73 sqM) 09/16/16 04:30 Est GFR (MDRD) Non-Af >60 (>60 ml/min/1.73 sqM) 09/16/16 04:30 Glucose 124 mg/dL (74-99) H 09/16/16 04:30 POC Glucose (mg/dL) 153 mg/dL (75-99) H 09/16/16 01:19 POC Glu [employer]ilities Plant Engineer ID Nicole Pollack 09/16/16 01:19 Calcium 9.2 mg/dL (8.4-10.2) 09/16/16 04:30 Magnesium 1.6 mg/dL (1.6-2.3) 09/16/16 04:30 Total Bilirubin 0.9 mg/dL (0.2-1.3) 09/15/16 19:56 AST 39 U/L (17-59) 09/15/16 19:56 ALT 18 U/L (21-72) L 09/15/16 19:56 Alkaline Phosphatase 106 U/L (38-126) 09/15/16 19:56 Total Creatine Kinase 88 U/L (55-170) 09/15/16 19:56 CK-MB (CK-2) 2.3 ng/mL (0.0-2.4) 09/15/16 19:56 CK-MB (CK-2) Rel Index 2.6 09/15/16 19:56 Troponin I 0.032 ng/mL (0.000-0.034) 09/16/16 08:44 Total Protein 8.7 g/dL (6.3-8.2) H 09/15/16 19:56 Albumin 4.8 g/dL (3.5-5.0) 09/15/16 19:56 Urine Color Yellow 09/15/16 19:56 Urine Appearance Clear (Clear) 09/15/16 19:56 Urine pH 5.5 (5.0-8.0) 09/15/16 19:56 Ur Specific [place] 1.020 (1.001-1.035) 09/15/16 19:56 Urine Protein 1+ (Negative) H 09/15/16 19:56 Urine Glucose (UA) Negative (Negative) 09/15/16 19:56 Urine Ketones 1+ (Negative) H 09/15/16 19:56 Urine Blood Negative (Negative) 09/15/16 19:56 Urine Nitrate Negative (Negative) 09/15/16 19:56 Urine Bilirubin Negative (Negative) 09/15/16 19:56 Urine Urobilinogen 2.0 mg/dL (<2.0) 09/15/16 19:56 Ur Leukocyte Esterase Negative (Negative) 09/15/16 19:56 Urine RBC 1 /hpf (0-5) 09/15/16 19:56 Urine WBC 1 /hpf (0-5) 09/15/16 19:56 Hyaline Casts 66 /lpf (0-2) H 09/15/16 19:56 Urine Opiates Screen Not Detected (NotDetected) 09/15/16 19:56 Ur Oxycodone Screen Not Detected (NotDetected) 09/15/16 19:56 Urine Methadone Screen Not Detected (NotDetected) 09/15/16 19:56 Ur Propoxyphene Screen Not Detected (NotDetected) 09/15/16 19:56 Ur Barbiturates Screen Not Detected (NotDetected) 09/15/16 19:56 U Tricyclic Antidepress Not Detected (NotDetected) 09/15/16 19:56 Ur Phencyclidine Scrn Not Detected (NotDetected) 09/15/16 19:56 Ur Amphetamines Screen Not Detected (NotDetected) 09/15/16 19:56 U Methamphetamines Scrn Not Detected (NotDetected) 09/15/16 19:56 U Benzodiazepines Scrn Not Detected (NotDetected) 09/15/16 19:56 Urine Cocaine Screen Not Detected (NotDetected) 09/15/16 19:56 U Marijuana (THC) Screen Not Detected (NotDetected) 09/15/16 19:56 Influenza Type A RNA Not Detected (Not Detectd) 09/16/16 10:30 Influenza Type B (PCR) Not Detected (Not Detectd) 09/16/16 10:30 CBC & Chem 7: 09/18/16 06:47 09/18/16 06:47 Labs: Abnormal Lab Results - Last 24 Hours (Table) 09/16/16 09/16/16 09/16/16 Range/Units 00:36 01:19 04:30 WBC 10.9 H (3.8-10.6) k/uL MCV 100.7 H (80.0-100.0) fL ABG pH (7.35-7.45) ABG pCO2 (35-45) mmHg ABG pO2 (83-108) mmHg Creatinine (0.66-1.25) mg/dL Glucose (74-99) mg/dL POC Glucose (mg/dL) 162 H 153 H (75-99) mg/dL 09/16/16 09/16/16 Range/Units 04:30 09:45 WBC (3.8-10.6) k/uL MCV (80.0-100.0) fL ABG pH 7.47 H (7.35-7.45) ABG pCO2 30 L (35-45) mmHg ABG pO2 79 L (83-108) mmHg Creatinine 0.60 L (0.66-1.25) mg/dL Glucose 124 H (74-99) mg/dL POC Glucose (mg/dL) (75-99) mg/dL Microbiology - Last 24 Hours (Table) 09/16/16 01:32 Urine Culture - Preliminary Urine,Catheterized Assessment and Plan Plan: This is an 85-year-old male who presented to the hospital after syncopal episode and found to have acute evolving left cerebellar stroke. Patient did present with leukocytosis and developed fever with repeat chest x- ray showing mild infiltrate and atelectasis and bilateral lower lobes worse in the right which may represent early aspiration pneumonia. He is currently on antibiotics in the form of ampicillin, ceftriaxone and vancomycin. These will be streamlined to Unasyn for concerns of aspiration pneumonia. Continue supportive care. Urine and blood cultures are in process. Further recommendations as patient progresses. The above dictated assessment and findings were discussed with Dr. Kwok. The impression and plan of care have been directed as dictated. Robyn Cai nurse practitioner acting as scribe for Dr. Kwok. Time with Patient: Greater than 30
[2016-09-16] MEDS ORDERED: DEXAMETHASONE SOD PHOSPHATE 4 MG/ML 1 ML VIAL IV PRN (13:05)
[2016-09-16] MEDS ORDERED: DEXAMETHASONE SOD PHOSPHATE 10 MG/ML 1 ML VIAL IV STA (13:05)
[2016-09-16] MEDS: ASPIRIN 300 MG SUPP RECTAL SCH (13:57)
--- NOTE | 2016-09-16 14:35 | P.CNPUL ---
History of Present Illness Consult date: 09/16/16 Requesting physician: Farida Talley Reason for consult: other (Acute CVA) Chief complaint: Mental status change History of present illness: This is an 85-year-old white male who is primarily a patient of Dr. Velazquez, known history of hypertension, and hyperlipidemia, patient had a syncopal episode while shopping at [employer] yesterday. EMS arrived and the patient was alert oriented, however enroute to the ER, patient became unresponsive, upon arrival to the ER patient was noted to be lethargic but arousable and able to move all 4 extremities. His blood pressure at the time was 202/95. His basic metabolic profile and CBC were relatively unremarkable, drug screen was negative, CT of the brain showed mostly cerebral atrophy and chronic vessel ischemia no acute abnormalities noted. Chest x-ray no evidence of active disease was noted. Hence the patient was admitted to the ICU and he developed a temp of 102.5. Patient went on to develop worsening neurological status, and no response except to deep painful stimuli. His initial screening for influenza A and B were negative. CT of the chest showed mostly atelectatic changes in the bases, echocardiogram showed mild aortic stenosis and mitral regurgitation ejection fraction was 55% considering his elevated temperature, patient was empirically placed on antibiotics to cover meningitis, and he was also placed on acyclovir to cover potential viral encephalitis. Lumbar puncture could not be performed because of the fact the patient received Lovenox earlier today. Patient was placed on Rocephin and ampicillin and vancomycin, and also on acyclovir. After I evaluated the patient, I recommended a repeat CT of the brain and compared to the initial CT done about [address] showed a new cortical and subcortical hypodensity at the left parieto-occipital junction, and extensive hypodensity in the left cerebellar hemisphere strongly suggestive of evolving acute infarct. No mass effect was noted. Neurology was consulted, and patient is yet to be seen by neurology casino controller, however the neurologist is well aware of all the development so far. Review of Systems ROS unobtainable: due to mental status Past Medical History Past Medical History: Unable to Obtain History of Any Multi-Drug Resistant Organisms: Unobtainable Past Surgical History: Unable to Obtain Additional Past Surgical History / Comment(s): Cabg x3 Past Anesthesia/Blood Transfusion Reactions: No Reported Reaction Past Psychological History: Unable to Obtain Smoking Status: Unknown if ever smoked Past Alcohol Use History: Unable to Obtain Additional Past Alcohol Use History / Comment(s): 7x week Past Drug Use History: Unable to Obtain - Past Family History Father Family Medical History: Congestive Heart Failure (CHF) Mother Family Medical History: CVA/TIA Medications and Allergies Home Medications Medication Instructions Recorded Confirmed Type Aspirin EC [Ecotrin Low Dose] 162 mg PO DAILY 09/15/16 09/15/16 History Atenolol [Tenormin] 25 mg PO DAILY 09/15/16 09/15/16 History Simvastatin [Zocor] 20 mg PO Q48H 09/15/16 09/15/16 History Allergies Allergy/AdvReac Type Severity Reaction Status Date / Time No Known Allergies Allergy Verified 09/15/16 20:44 Physical Exam Vitals: Vital Signs Temp Pulse Pulse Resp BP BP Pulse Ox 09/16/16 14:00 93 23 109/65 94 L 09/16/16 13:00 90 20 124/79 95 09/16/16 12:00 99.9 F H 89 22 124/79 96 09/16/16 11:00 107 H 25 H 136/65 95 09/16/16 10:00 101 H 25 H 136/65 95 09/16/16 09:00 101.5 F H 95 27 H 130/84 09/16/16 08:00 100.1 F H 89 105 H 27 H 130/84 84 L 09/16/16 07:00 82 22 150/80 94 L 09/16/16 06:00 93 31 H 150/80 94 L 09/16/16 05:12 105 H 24 148/76 09/16/16 04:00 98.5 F 95 24 161/85 97 09/16/16 03:12 98 22 150/80 09/16/16 01:20 98.9 F 111 H 21 149/79 92 L 09/16/16 01:03 98.6 F 108 H 26 H 123/65 95 09/15/16 23:34 98.7 F 112 H 24 117/80 95 09/15/16 22:41 74 16 161/64 96 Intake and Output 09/15/16 09/16/16 09/16/16 22:59 06:59 14:59 Intake Total 500 750 Output Total 815 290 Balance -315 460 Intake: IV 500 750 ACETAMINOPHEN IV (For NPO 100 ) 1,000 mg In Empty Bag 1 bag @ 400 mls/hr IVPB ONCE ONE Rx#:[id number] Acyclovir Sodium 630 mg 100 In Sodium Chloride 0.9% 100 ml @ 100 mls/hr IV ONCE ONE Rx#:[id number] Sodium Chloride 0.9% 1, 500 300 000 ml @ 100 mls/hr IV . Q10H [facility] Rx#:[id number] Vancomycin 1,250 mg In 250 Sodium Chloride 0.9% 250 ml @ 125 mls/hr IVPB Q12HR [facility] Rx#:[id number] Output: Urine 815 290 Other: Voiding Method Indwelling Catheter Indwelling Catheter Weight 62.87 kg Physical Exam: Revealed an 85-year-old white male, unresponsive except to sternal rub, and his response is very minimal. Patient is very obtunded. HEENT:[Neck is supple.] [No neck masses.] [No thyromegaly.] [No JVD.] Negative gag reflex Chest: [Snoring sounds noted otherwise Clear throughout, no crackles, no rhonchi , no wheezes.] Cardiac Exam: [Normal S1 and S2, no S3 gallop, 2/6 systolic murmur throughout the precordium] Abdomen: [Soft, nontender, no megaly, no rebound, no guarding, normal bowel sounds.] Extremities: [No clubbing, no edema, no cyanosis.] Neurological Exam: Patient is obtunded with minimal response to deep painful stimuli. Negative gag reflex, opens eyes to pain, verbal response none, motor response flexion to pain, Glascow coma score is 6. Indicative of severe brain injury. Results - Laboratory Findings CBC and BMP: 09/16/16 04:30 09/16/16 04:30 ABG ABG pH 7.47 (7.35-7.45) H 09/16/16 09:45 ABG pCO2 30 mmHg (35-45) L 09/16/16 09:45 ABG pO2 79 mmHg (83-108) L 09/16/16 09:45 ABG O2 Saturation 97.0 % (94-97) 09/16/16 09:45 PT/INR, D-dimer PT 11.1 sec (9.0-12.0) 09/15/16 21:53 INR 1.1 (<1.1) 09/15/16 21:53 D-Dimer 3.67 mg/L FEU (<0.60) H 09/15/16 21:53 Abnormal lab findings: Abnormal Labs 09/16/16 09/16/16 09/16/16 00:36 01:19 04:30 WBC 10.9 H MCV 100.7 H ABG pH ABG pCO2 ABG pO2 Creatinine Glucose POC Glucose (mg/dL) 162 H 153 H 09/16/16 09/16/16 04:30 09:45 WBC MCV ABG pH 7.47 H ABG pCO2 30 L ABG pO2 79 L Creatinine 0.60 L Glucose 124 H POC Glucose (mg/dL) - Diagnostic Findings Additional studies: All studies were reviewed including chest x-ray, echocardiogram, carotid Doppler , CT of the brain 2, and all labs were reviewed. Assessment and Plan Plan: Impression: 1 Acute evolving stroke, Glascow coma score is 6. The stroke seems to be involving left parieto-occipital junction and left cerebellar hemisphere. 2 history of essential hypertension. 3 history of hyperlipidemia. 4 considering his overall mental status and negative gag reflex on examination, patient is a high risk for aspiration pneumonia. Recommendation agree with the present treatment plan including antibiotics empirically, Decadron, GI prophylaxis, DVT prophylaxis, ideally speaking patient these to be intubated and placed on mechanical ventilation to protect his airways, however the patient is DO NOT RESUSCITATE CODE STATUS. Prognosis is definitely poor and guarded. Consider discussing with the family comfort care measures and transfer out of the ICU. Time with Patient: Greater than 30
--- NOTE | 2016-09-16 15:30 | P.CRDCN ---
History of Present Illness Consult date: 09/16/16 History of present illness: This is a pleasant 85-year-old gentleman with a known CAD and prior CABG who does not follows with any financial aid counselor, hypertension, and dyslipidemia, was brought by his family to the emergency room after he had a witnessed syncopal episode. The computed tomography scan of the brain showed what it seems to be stroke. The patient was seen and evaluated by any neurologist. According to the patient's family, he was not experiencing any symptoms of chest pain or chest discomfort nor shortness of breath. Currently the patient is nonresponsive. The radiologist seen the patient and evaluated the patient and he thinks is an embolic stroke and he requested transesophageal echocardiogram to rule out any cardiac source of embolization. I will assist the patient tomorrow morning and schedule him to have a LYNNE. The procedure in details was explained to the patient's family. Past Medical History Past Medical History: Unable to Obtain History of Any Multi-Drug Resistant Organisms: Unobtainable Past Surgical History: Unable to Obtain Additional Past Surgical History / Comment(s): Cabg x3 Past Anesthesia/Blood Transfusion Reactions: No Reported Reaction Past Psychological History: Unable to Obtain Smoking Status: Unknown if ever smoked Past Alcohol Use History: Unable to Obtain Additional Past Alcohol Use History / Comment(s): 7x week Past Drug Use History: Unable to Obtain - Past Family History Father Family Medical History: Congestive Heart Failure (CHF) Mother Family Medical History: CVA/TIA Medications and Allergies Home Medications Medication Instructions Recorded Confirmed Type Aspirin EC [Ecotrin Low Dose] 162 mg PO DAILY 09/15/16 09/15/16 History Atenolol [Tenormin] 25 mg PO DAILY 09/15/16 09/15/16 History Simvastatin [Zocor] 20 mg PO Q48H 09/15/16 09/15/16 History Allergies Allergy/AdvReac Type Severity Reaction Status Date / Time No Known Allergies Allergy Verified 09/15/16 20:44 Physical Exam Vitals: Vital Signs Temp Pulse Pulse Resp BP BP Pulse Ox 09/16/16 14:00 93 23 109/65 94 L 09/16/16 13:00 90 20 124/79 95 09/16/16 12:00 99.9 F H 89 105 H 23 124/79 96 09/16/16 11:00 107 H 25 H 136/65 95 09/16/16 10:00 101 H 25 H 136/65 95 09/16/16 09:00 101.5 F H 95 27 H 130/84 09/16/16 08:00 100.1 F H 89 105 H 27 H 130/84 84 L 09/16/16 07:00 82 22 150/80 94 L 09/16/16 06:00 93 31 H 150/80 94 L 09/16/16 05:12 105 H 24 148/76 09/16/16 04:00 98.5 F 95 24 161/85 97 09/16/16 03:12 98 22 150/80 09/16/16 01:20 98.9 F 111 H 21 149/79 92 L 09/16/16 01:03 98.6 F 108 H 26 H 123/65 95 09/15/16 23:34 98.7 F 112 H 24 117/80 95 09/15/16 22:41 74 16 161/64 96 Intake and Output 09/16/16 09/16/16 09/16/16 06:59 14:59 22:59 Intake Total 500 1000 100 Output Total 815 360 45 Balance -315 640 55 Intake: IV 500 950 100 ACETAMINOPHEN IV (For NPO 100 ) 1,000 mg In Empty Bag 1 bag @ 400 mls/hr IVPB ONCE ONE Rx#:[id number] Acyclovir Sodium 630 mg 100 In Sodium Chloride 0.9% 100 ml @ 100 mls/hr IV ONCE ONE Rx#:[id number] Sodium Chloride 0.9% 1, 500 500 100 000 ml @ 100 mls/hr IV . Q10H [facility] Rx#:[id number] Vancomycin 1,250 mg In 250 Sodium Chloride 0.9% 250 ml @ 125 mls/hr IVPB Q12HR [facility] Rx#:[id number] Intake, IV Titration 50 Amount Ampicillin 1,000 mg In 50 Sodium Chloride 0.9% 50 ml @ 100 mls/hr IVPB Q6HR [facility] Rx#:[id number] Output: Urine 815 360 45 Other: Voiding Method Indwelling Catheter Indwelling Catheter Weight 62.87 kg - Respiratory Respiratory: bilateral: rales - Cardiovascular Rhythm: regular Results 09/16/16 04:30 09/16/16 04:30 Cardiac Enzymes 09/16/16 09/16/16 Range/Units 02:21 08:44 Troponin I 0.032 0.032 (0.000-0.034) ng/mL Lipids 09/16/16 Range/Units 04:30 Triglycerides 55 (<150) mg/dL Cholesterol 155 (<200) mg/dL HDL Cholesterol 54 (40-60) mg/dL CBC 09/16/16 Range/Units 04:30 WBC 10.9 H (3.8-10.6) k/uL RBC 4.97 (4.30-5.90) m/uL Hgb 16.0 (13.0-17.5) gm/dL Hct 50.1 (39.0-53.0) % Plt Count 182 (150-450) k/uL Comprehensive Metabolic Panel 09/16/16 Range/Units 04:30 Sodium 139 (137-145) mmol/L Potassium 4.5 (3.5-5.1) mmol/L Chloride 103 (98-107) mmol/L Carbon Dioxide 22 (22-30) mmol/L BUN 11 (9-20) mg/dL Creatinine 0.60 L (0.66-1.25) mg/dL Glucose 124 H (74-99) mg/dL Calcium 9.2 (8.4-10.2) mg/dL Current Medications Generic Name Dose Route Start Last Admin Trade Name Freq PRN Reason Stop Dose Admin Aspirin 300 mg 09/16/16 11:30 09/16/16 13:57 Aspirin RECTAL 300 mg DAILY [facility] Administration Dexamethasone Sodium Phosphate 4 mg 09/16/16 13:05 Decadron IV Q6HR PRN Nausea And Vomiting Enoxaparin Sodium 40 mg 09/17/16 09:00 Lovenox SQ DAILY [facility] Famotidine 20 mg 09/16/16 09:00 09/16/16 08:50 Pepcid IV 20 mg Q12HR [facility] Administration Hydralazine HCl 10 mg 09/16/16 12:20 Apresoline IVP Q6HR PRN Blood Pressure - High Sodium Chloride 1,000 mls @ 100 mls/hr 09/15/16 22:15 09/16/16 08:22 Saline 0.9% IV Not Given .Q10H [facility] Ceftriaxone Sodium 2,000 mg/ 100 mls @ 100 mls/hr 09/16/16 09:45 09/16/16 12: 22 Sodium Chloride IVPB 100 mls/hr Q12HR [facility] Administration Ampicillin Sodium 1,000 mg/ 50 mls @ 100 mls/hr 09/16/16 12:00 09/16/16 12:22 Sodium Chloride IVPB 100 mls/hr Q6HR [facility] Administration Vancomycin HCl 1,250 mg/ 250 mls @ 125 mls/hr 09/16/16 10:00 09/16/16 10:16 Sodium Chloride IVPB 125 mls/hr Q12HR [facility] Administration Insulin Human Lispro 0 unit 09/16/16 18:00 Humalog SQ Q6HR [facility] Protocol Miscellaneous Information 1 each 09/16/16 02:32 Rx Info: Iv Contrast Was Given MISCELLANE 09/18/16 02:36 DAILY PRN Per Protocol Miscellaneous Information 1 each 09/16/16 06:22 Magnesium Per Protocol MISCELLANE DAILY PRN Per Protocol Protocol Intake and Output 09/16/16 09/16/16 09/16/16 06:59 14:59 22:59 Intake Total 500 1000 100 Output Total 815 360 45 Balance -315 640 55 Intake: IV 500 950 100 ACETAMINOPHEN IV (For NPO 100 ) 1,000 mg In Empty Bag 1 bag @ 400 mls/hr IVPB ONCE ONE Rx#:[id number] Acyclovir Sodium 630 mg 100 In Sodium Chloride 0.9% 100 ml @ 100 mls/hr IV ONCE ONE Rx#:[id number] Sodium Chloride 0.9% 1, 500 500 100 000 ml @ 100 mls/hr IV . Q10H [facility] Rx#:[id number] Vancomycin 1,250 mg In 250 Sodium Chloride 0.9% 250 ml @ 125 mls/hr IVPB Q12HR [facility] Rx#:[id number] Intake, IV Titration 50 Amount Ampicillin 1,000 mg In 50 Sodium Chloride 0.9% 50 ml @ 100 mls/hr IVPB Q6HR [facility] Rx#:[id number] Output: Urine 815 360 45 Other: Voiding Method Indwelling Catheter Indwelling Catheter Weight 62.87 kg 09/16/16 04:30 09/16/16 04:30 Assessment and Plan Plan: Assessment #1 change in mental status #2 acute stroke #3 CAD with a prior CABG #4 multiple comorbid conditions Plan #1 follow-up with the echocardiogram #2 continue the current medical treatment #3 possible LYNNE
[2016-09-16 17:54] LABS: Glucose,Whole Blood 140 mg/dL (75-99)
[2016-09-16] MEDS: INSULIN LISPRO (humaLOG) 300 UNIT/3 ML VIAL SQ SCH (18:03)
[2016-09-16 19:07] LABS: Hemoglobin A1C 5.6 % (4.2-6.1)
--- NOTE | 2016-09-16 21:40 | P.CON ---
Consult Note - . Consult date: 09/16/16 Assessment/Plan:: This is an 85-year-old male. He has a known past medical history of hypertension and hyperlipidemia. No information is able to be obtained from the patient and no family is available. According to the ER notes, patient was at home but had been shopping earlier at [facility] and EMS was called due to a syncopal episode. When EMS arrived the patient was alert and oriented but enroute to the hospital he became unresponsive. Initially in the emergency center, he was lethargic but arousable and able to move all 4 extremities and answer very basic questions. He denied headache, chest pain, palpitations, shortness of breath, fever, abdominal pain, nausea, vomiting, diarrhea, dysuria , trauma. In the emergency center, patient was afebrile. Blood pressure was elevated at 202/95. Pulse ox was 97% on 2 L. Initial leukocytosis at 13.7, d- dimer 3.67, potassium 5.3 and CO2 20, GFR greater than 60, blood sugar 140. Troponin normal. Urinalysis was clear nitrate and leukoesterase negative. Urine drug screen was negative. CAT scan of the brain showed moderate cerebral atrophy and chronic small vessel ischemia with no acute abnormality. Chest x- ray shows extensive calcified pleural plaque. No acute lung disease. No heart failure. Patient was admitted to the intensive care unit as an overflow for selective care. He has subsequently developed a temperature max of 102.5. He has minimal response to sternal rub. Repeat troponin of 0.032. Influenza testing A and B negative. Albumin 4.8 Carotid Doppler shows moderate to severe atherosclerotic changes bilaterally without hemodynamically significant stenosis. CTA of the chest showed no evidence of acute pulmonary embolism. Mild infiltrates and atelectatic changes in both lung bases worse on the right, possible asbestos exposure, fluid distended esophagus and possibility of inflammatory process of the esophagus not excluded. Ultrasound venous Doppler duplex of the bilateral lower extremities was negative for DVT. Echocardiogram reveals mild aortic stenosis, mild mitral regurgitation, mild tricuspid regurgitation, mild concentric left ventricular hypertrophy, EF 55-60%. Repeat CAT scan of the brain shows new cortical and subcortical hypodensity at the left parietal occipital junction and extensive hypodensity in the left cerebral hemisphere suggestive of evolving acute infarcts. Dr. Rendon was initially called for agnostic lumbar puncture but because he has received Lovenox subcu, lumbar puncture was not completed. Subsequently the CAT scan revealed numerous evolving strokes and consult with Dr. Dr. Rendon and lumbar puncture orders canceled. Patient has been started on ceftriaxone and ampicillin and vancomycin. Please see the consult note is dictated by nurse practitioner Mrs. Robyn Cai. Exam reveals this 85-year-old gentleman who has sonorous respirations. Not responding to the observer at all. Has upgoing toes bilaterally. Very little spontaneous motion was noted. As noted the patient has second CT this shows the extensive multifocal stroke. This is the likely etiology of the current fever. However given his altered mental status and mildly abnormal chest x-ray concerns for aspiration pneumonia. He has not been recently hospitalized and he does not have significant risk factors for pseudomonas. Consequently ampicillin sulbactam will be utilized at this point in time. He has been seen by neurology and his prognosis is extremely poor. I agree with evaluation, assessment and plan as dictated by nurse practitioner Mrs. Robyn Cai.
[2016-09-16] MEDS ORDERED: ASPIRIN 325 MG TAB PO SCH (22:13)
--- NOTE | 2016-09-16 22:16 | CONS ---
DATE OF CONSULTATION: 09/16/2016 CHIEF COMPLAINT: Stroke. HISTORY OF PRESENT ILLNESS: The patient is a 85-year-old male who is being evaluated by the neurology service per the request of Dr. Shultz and Dr. Moran for a stroke. The patient was brought into [facility] emergency room after he had collapsed in the grocery store. His initial CT scan of the brain showed no acute findings with generalized atrophy and small vessel ischemic changes. The patient's mental status deteriorated and he became less conscious and he was admitted to the intensive care unit for closer monitoring. A CT scan of the chest was done, which showed no evidence of any pulmonary embolism. The patient did spike a fever and there was concerns for possible meningitis but the patient's acute onset of symptoms was not consistent with this. He was started on IV antibiotics for his fever and infectious disease was consulted. A repeat CT scan of the brain was done, which did show evidence of an acute stroke involving the left parietal occipital region and left cerebellum. His CBC showed leukocytosis at 10.9. The previous CBC showed leukocytosis at 13.7. His urine drug screen, basic metabolic profile, cardiac enzymes, fasting lipid panel and urinalysis were all reviewed and were within normal limits. I did review his EEG, which was done today, and it showed moderate encephalopathy. At the time of my evaluation, the patient continues to be unresponsive to verbal stimuli. His vital signs have been stable except for his fever. His temperature did improve to 99.9. PAST MEDICAL HISTORY: Hypertension, dyslipidemia. SOCIAL HISTORY: Unknown. FAMILY HISTORY: Positive for heart disease and strokes. HOME MEDICATIONS: Reviewed in the chart. ALLERGIES: No known drug allergies. REVIEW OF SYSTEMS: Unable to obtain as the patient is unresponsive. PHYSICAL EXAM: Vital signs show a temperature of 99.9, pulse 89, respirations 22, blood pressure 124/79. GENERAL APPEARANCE: The patient is a thin, elderly male who appears to be in no acute distress, but he is unresponsive to verbal stimuli. Neck is supple with no masses felt. HEENT: Normocephalic, atraumatic, a subcutaneous mass is felt on the left mandibular region. Pupils are sluggishly reactive to light. CARDIOVASCULAR: Regular rate and rhythm. ABDOMEN: Nondistended. EXTREMITIES: No edema or clubbing. NEUROLOGICAL EXAM: The patient is unresponsive to verbal stimuli. He does withdraw his left upper extremity to painful stimuli. Plantar reflex showed Babinski bilaterally. His tone is flaccid. No seizure-like activity is seen. Craig sign is negative bilaterally. IMPRESSION: 1. Acute ischemic stroke, left middle cerebral artery and left posterior cerebral artery distribution. 2. Unresponsiveness. 3. Fever. 4. Leukocytosis. RECOMMENDATIONS: The patient does appear to have suffered a major ischemic stroke as mentioned above. I do believe there is significant brain stem involvement given his altered mentation. I did start the patient on aspirin 300 mg rectally daily. I will keep him on Lovenox for DVT prophylaxis and Protonix for GI prophylaxis. Given the extent of stroke, there is concern for cytotoxic edema, which may cause uncle herniation. I will start the patient on Decadron IV. A serum homocysteine level has been ordered. Speech therapy and physical therapy have been consulted. Given the patient's multiple ischemic strokes, the patient may need a transesophageal echocardiogram although given the prognosis, this is not recommended at this time. Continue supportive care. Prognosis is guarded. I will continue to follow with you. Further recommendations to follow. Thank you for allowing me to participate in the care of your patient. If you have any questions, please feel free to contact me.
[2016-09-16] MEDS: AMPICILLIN-SULBACTAM 3 GM in SODIUM CHLORIDE 0.9% 100 ML IVPB SCH (23:58)
[2016-09-17] MEDS: INSULIN LISPRO (humaLOG) 300 UNIT/3 ML VIAL SQ SCH ×4 (00:01→17:55)
[2016-09-17 00:02] LABS: Glucose,Whole Blood 131 mg/dL (75-99)
[2016-09-17 05:00] LABS: Basophils % (A) 0 %; CH 32.4; CHCM 32.8; Eosinophils # (A) 0.1 k/uL (0-0.7); Eosinophils % (A) 1 %; HDW 2.22; HGB 15.2 gm/dL (13.0-17.5); Luc # (Auto) 0.15; Luc % (Auto) 1; Lymphocytes # (A) 1.1 k/uL (1.0-4.8); Lymphocytes % (A) 6 %; MCH 32.1 pg (25.0-35.0); MCHC 32.3 g/dL (31.0-37.0); MCV 99.4 fL (80.0-100.0); Mean Platelet Volume 9.6; Monocytes # (A) 0.8 k/uL (0-1.0); Monocytes % (A) 4 %; Neutrophils # (A) 16.8 k/uL (1.3-7.7); Neutrophils % (A) 89 %; RBC 4.73 m/uL (4.30-5.90); RDW 13.1 % (11.5-15.5)
[2016-09-17 05:12] LABS: Anion Gap 10 mmol/L; Calcium 8.5 mg/dL (8.4-10.2); Carbon Dioxide 22 mmol/L (22-30); Chloride 108 mmol/L (98-107); Glucose 102 mg/dL (74-99); Non-African American GFR(MDRD) >60 (>60 ml/min/1.73 sqM); Sodium 140 mmol/L (137-145)
[2016-09-17 05:21] LABS: Blood Urea Nitrogen 14 mg/dL (9-20); Phosphorous 3.4 mg/dL (2.5-4.5); Potassium 4.2 mmol/L (3.5-5.1)
[2016-09-17 05:30] LABS: EBV - EA (IgG) 16.8 U/mL (<9.0); EBV - VCA (IgG) >750.0 U/mL (<18.0); EBV - VCA IgM <10.0 U/mL (<36.0)
[2016-09-17 05:56] LABS: Glucose,Whole Blood 90 mg/dL (75-99)
[2016-09-17] MEDS: AMPICILLIN-SULBACTAM 3 GM in SODIUM CHLORIDE 0.9% 100 ML IVPB SCH ×3 (05:59→17:47)
--- NOTE | 2016-09-17 06:44 | EEG ---
DATE OF SERVICE: 09/16/2016 REASON FOR TESTING: Altered mental status and stroke. AGE: 85Y DESCRIPTION OF THE PROCEDURE: This EEG was performed using a 21-channel digital electroencephalograph, following the international 10 to 20 system. DESCRIPTION OF THE RECORDING: From the beginning of the tracing, and with the patient's eyes closed, the background rhythm was mostly consisting of 5 to 6 Hz theta frequency in the posterior occipital leads. No obvious asymmetry is seen. Photic stimulation was performed with no driving response seen. No pathological waves were elicited. Hyperventilation was not performed. Rare muscle artifacts are seen. No epileptiform discharges were noticed. The patient remains awake throughout the tracing. His EKG lead showed a regular rate and rhythm. INTERPRETATION: This awake EEG is abnormal due to the presence of generalized slowing of the background rhythm, mostly in the theta range. This is consistent with moderate encephalopathy. No epileptiform discharges were seen. The absence of epileptiform discharges does not rule out the diagnosis of epilepsy, therefore, clinical correlation is recommended.
[2016-09-17] MEDS: FAMOTIDINE 20 MG/2 ML VIAL IV SCH ×2 (08:18→19:59)
[2016-09-17] MEDS: ASPIRIN 300 MG SUPP RECTAL SCH (08:18)
[2016-09-17] MEDS: ENOXAPARIN 40 MG/0.4 ML SYRINGE SQ SCH (08:18)
[2016-09-17] MEDS ORDERED: DEXAMETHASONE SOD PHOSPHATE 4 MG/ML 1 ML VIAL IV STA (08:22)
[2016-09-17] MEDS: hydrALAZINE HCL 20 MG/ML 1 ML VIAL IVP PRN ×2 (08:24→19:58)
[2016-09-17] MEDS: LORazepam 2 MG/ML SYRINGE IV PRN ×2 (10:17→19:58)
[2016-09-17 11:58] LABS: Glucose,Whole Blood 106 mg/dL (75-99)
--- NOTE | 2016-09-17 12:03 | P.PN ---
Subjective Principal diagnosis: Acute CVA This is an 85-year-old white male who is primarily a patient of Dr. Velazquez, known history of hypertension, and hyperlipidemia, patient had a syncopal episode while shopping at [email or web address] yesterday. EMS arrived and the patient was alert oriented, however enroute to the ER, patient became unresponsive, upon arrival to the ER patient was noted to be lethargic but arousable and able to move all 4 extremities. His blood pressure at the time was 202/95. His basic metabolic profile and CBC were relatively unremarkable, drug screen was negative, CT of the brain showed mostly cerebral atrophy and chronic vessel ischemia no acute abnormalities noted. Chest x-ray no evidence of active disease was noted. Hence the patient was admitted to the ICU and he developed a temp of 102.5. Patient went on to develop worsening neurological status, and no response except to deep painful stimuli. His initial screening for influenza A and B were negative. CT of the chest showed mostly atelectatic changes in the bases, echocardiogram showed mild aortic stenosis and mitral regurgitation ejection fraction was 55% considering his elevated temperature, patient was empirically placed on antibiotics to cover meningitis, and he was also placed on acyclovir to cover potential viral encephalitis. Lumbar puncture could not be performed because of the fact the patient received Lovenox earlier today. Patient was placed on Rocephin and ampicillin and vancomycin, and also on acyclovir. After I evaluated the patient, I recommended a repeat CT of the brain and compared to the initial CT done about [address] showed a new cortical and subcortical hypodensity at the left parieto-occipital junction, and extensive hypodensity in the left cerebellar hemisphere strongly suggestive of evolving acute infarct. No mass effect was noted. Neurology was consulted, and patient is yet to be seen by neurology [facility], however the neurologist is well aware of all the development so far. Patient was reevaluated today, he is slightly better than yesterday, at least he seems to open eyes to painful stimuli, and may respond verbally with verbal stimuli. However the patient remains obtunded if left alone, and arousable only with deep painful stimuli. Since admission the patient was seen by many consultants including neurology, cardiology, infectious disease, and he is now on Unasyn empirically. His other antibiotics and antiviral therapy was discontinued by infectious disease. Patient remains on Decadron, and he is on Lovenox subcu. Labs showed leukocytosis with WBC count of 19.0 hemoglobin of 15.2 electrolytes are normal renal profile is normal. Objective - Vital Signs Vital signs: Vital Signs Temp 98.5 F 09/17/16 08:00 Pulse 129 H 09/17/16 10:00 Resp 23 09/17/16 10:00 BP 146/81 09/17/16 10:00 Pulse Ox 96 09/17/16 09:00 Intake & Output 09/16/16 09/17/16 09/17/16 18:59 06:59 18:59 Intake Total 1400 1290 890 Output Total 612 760 275 Balance 788 530 615 Weight 58.4 kg Intake: IV 1350 1290 890 ACETAMINOPHEN IV (For NPO 100 ) 1,000 mg In Empty Bag 1 bag @ 400 mls/hr IVPB ONCE ONE Rx#:[id number] Acyclovir Sodium 630 mg 100 In Sodium Chloride 0.9% 100 ml @ 100 mls/hr IV ONCE ONE Rx#:[id number] Ampicillin-Sulbactam 3 gm 100 300 In Sodium Chloride 0.9% 100 ml @ 100 mls/hr IVPB Q6HR [facility] Rx#:[id number] Sodium Chloride 0.9% 1, 900 1190 590 000 ml @ 100 mls/hr IV . Q10H [facility] Rx#:[id number] Vancomycin 1,250 mg In 250 Sodium Chloride 0.9% 250 ml @ 125 mls/hr IVPB Q12HR [facility] Rx#:[id number] Intake, IV Titration 50 Amount Ampicillin 1,000 mg In 50 Sodium Chloride 0.9% 50 ml @ 100 mls/hr IVPB Q6HR [facility] Rx#:[id number] Output: Urine 612 760 275 Other: Voiding Method Indwelling Catheter Indwelling Catheter Indwelling Catheter - Exam Physical Exam: Revealed an 85-year-old white male, unresponsive except to sternal rub, and his response is very minimal. Patient is very obtunded. HEENT:[Neck is supple.] [No neck masses.] [No thyromegaly.] [No JVD.] Negative gag reflex Chest: [Snoring sounds noted otherwise Clear throughout, no crackles, no rhonchi , no wheezes.] Cardiac Exam: [Normal S1 and S2, no S3 gallop, 2/6 systolic murmur throughout the precordium] Abdomen: [Soft, nontender, no megaly, no rebound, no guarding, normal bowel sounds.] Extremities: [No clubbing, no edema, no cyanosis.] Neurological Exam: Patient is obtunded with minimal response to deep painful stimuli. Negative gag reflex, opens eyes to pain, verbal response minimal, motor response flexion to pain, Glascow coma score is 7. Indicative of severe brain injury. - Labs CBC & Chem 7: 09/17/16 04:34 09/17/16 04:28 Labs: Abnormal Lab Results - Last 24 Hours (Table) 09/16/16 09/16/16 09/17/16 Range/Units 04:30 17:52 00:00 WBC (3.8-10.6) k/uL Plt Count (150-450) k/uL Neutrophils # (1.3-7.7) k/uL Chloride (98-107) mmol/L Creatinine (0.66-1.25) mg/dL Glucose (74-99) mg/dL POC Glucose (mg/dL) 140 H 131 H (75-99) mg/dL EBV Capsid Ag IgG Ab >750.0 H (<18.0) U/mL EBV Early Antigen IgG 16.8 H (<9.0) U/mL EBV Nuclear Ag IgG Ab 282.0 H (<18.0) U/mL 09/17/16 09/17/16 09/17/16 Range/Units 04:28 04:34 11:56 WBC 19.0 H (3.8-10.6) k/uL Plt Count 148 L (150-450) k/uL Neutrophils # 16.8 H (1.3-7.7) k/uL Chloride 108 H (98-107) mmol/L Creatinine 0.60 L (0.66-1.25) mg/dL Glucose 102 H (74-99) mg/dL POC Glucose (mg/dL) 106 H (75-99) mg/dL EBV Capsid Ag IgG Ab (<18.0) U/mL EBV Early Antigen IgG (<9.0) U/mL EBV Nuclear Ag IgG Ab (<18.0) U/mL Microbiology - Last 24 Hours (Table) 09/16/16 01:32 Urine Culture - Preliminary Urine,Catheterized Assessment and Plan Plan: Impression: 1 Acute evolving stroke, Glascow coma score is 7 today The stroke seems to be involving left parieto-occipital junction and left cerebellar hemisphere. 2 history of essential hypertension. 3 history of hyperlipidemia. 4 considering his overall mental status and negative gag reflex on examination, patient is a high risk for aspiration pneumonia. Patient is empirically on Unasyn. Recommendation agree with the present treatment plan including antibiotics empirically, Decadron, GI prophylaxis, DVT prophylaxis, ideally speaking patient these to be intubated and placed on mechanical ventilation to protect his airways, however the patient is DO NOT RESUSCITATE CODE STATUS. Prognosis is definitely poor and guarded. Consider discussing with the family comfort care measures and we will go ahead and transfer the patient out of the ICU to a cardiac floor today. Again prognosis is very poor. Time with Patient: Less than 30
[2016-09-17] MEDS: DEXAMETHASONE SOD PHOSPHATE 4 MG/ML 1 ML VIAL IV SCH ×2 (13:03→17:47)
[2016-09-17] MEDS: SODIUM CHLORIDE 0.9% 1,000 ML IV SCH (13:41)
--- NOTE | 2016-09-17 14:38 | P.PN ---
Subjective This is an 85-year-old male. His primary care physician is Dr. Puma Velazquez. He has a known past medical history of hypertension and hyperlipidemia. No information is able to be obtained from the patient and no family is available. According to the ER notes, patient was at home but had been shopping earlier at [facility] and EMS was called due to a syncopal episode. When EMS arrived the patient was alert and oriented but enroute to the hospital he became unresponsive. Initially in the emergency center, he was lethargic but arousable and able to move all 4 extremities and answer very basic questions. He denied headache, chest pain, palpitations, shortness of breath, fever, abdominal pain, nausea, vomiting, diarrhea, dysuria, trauma. In the emergency center, patient was afebrile. Blood pressure was elevated at 202/95. Pulse ox was 97% on 2 L. Initial leukocytosis at 13.7, d-dimer 3.67, potassium 5.3 and CO2 20, GFR greater than 60, blood sugar 140. Troponin normal. Urinalysis was clear nitrate and leukoesterase negative. Urine drug screen was negative. CAT scan of the brain showed moderate cerebral atrophy and chronic small vessel ischemia with no acute abnormality. Chest x-ray shows extensive calcified pleural plaque. No acute lung disease. No heart failure. Patient was admitted to the intensive care unit as an overflow for selective care. He has subsequently developed a temperature max of 102.5. He has minimal response to sternal rub. Repeat troponin of 0.032. Influenza testing A and B negative. Carotid Doppler shows moderate to severe atherosclerotic changes bilaterally without hemodynamically significant stenosis. CTA of the chest showed no evidence of acute pulmonary embolism. Mild infiltrates and atelectatic changes in both lung bases worse on the right, possible asbestos exposure, fluid distended esophagus and possibility of inflammatory process of the esophagus not excluded. Ultrasound venous Doppler duplex of the bilateral lower extremities was negative for DVT. Echocardiogram reveals mild aortic stenosis, mild mitral regurgitation, mild tricuspid regurgitation, mild concentric left ventricular hypertrophy, EF 55-60%. Repeat CAT scan of the brain shows new cortical and subcortical hypodensity at the left parietal occipital junction and extensive hypodensity in the left cerebral hemisphere suggestive of evolving acute infarcts. Dr. Rendon was initially called for agnostic lumbar puncture but because he has received Lovenox subcu, lumbar puncture was not completed. Subsequently the CAT scan revealed numerous evolving strokes and consult with Dr. Dr. Rendon and lumbar puncture orders canceled. Patient has been started on ceftriaxone and ampicillin and vancomycin. Consults currently in place with Dr. Romo, Dr. Freeman, Dr. Kwok and Dr. Shultz. PT, OT, speech therapy all in place. 09/17: Patient's mental status is unchanged. Patient will be transferred selective care today. He is on Ativan for agitation. Objective - Vital Signs Vital signs: Vital Signs Temp 98.5 F 09/17/16 08:00 Pulse 129 H 09/17/16 10:00 Resp 23 09/17/16 10:00 BP 146/81 09/17/16 10:00 Pulse Ox 96 09/17/16 09:00 Intake & Output 09/16/16 09/17/16 09/17/16 18:59 06:59 18:59 Intake Total 1400 1290 390 Output Total 612 760 275 Balance 788 530 115 Weight 58.4 kg Intake: IV 1350 1290 390 ACETAMINOPHEN IV (For NPO 100 ) 1,000 mg In Empty Bag 1 bag @ 400 mls/hr IVPB ONCE ONE Rx#:[id number] Acyclovir Sodium 630 mg 100 In Sodium Chloride 0.9% 100 ml @ 100 mls/hr IV ONCE ONE Rx#:[id number] Ampicillin-Sulbactam 3 gm 100 100 In Sodium Chloride 0.9% 100 ml @ 100 mls/hr IVPB Q6HR [facility] Rx#:[id number] Sodium Chloride 0.9% 1, 900 1190 290 000 ml @ 100 mls/hr IV . Q10H [facility] Rx#:[id number] Vancomycin 1,250 mg In 250 Sodium Chloride 0.9% 250 ml @ 125 mls/hr IVPB Q12HR [facility] Rx#:[id number] Intake, IV Titration 50 Amount Ampicillin 1,000 mg In 50 Sodium Chloride 0.9% 50 ml @ 100 mls/hr IVPB Q6HR [facility] Rx#:[id number] Output: Urine 612 760 275 Other: Voiding Method Indwelling Catheter Indwelling Catheter Indwelling Catheter - Exam Gen: This is an 85-year-old male. He is seen in the intensive care unit. HEENT: Head is atraumatic, normocephalic. Pupils equal, round. Sclerae is anicteric. Conjunctiva pink. NECK: Supple. No JVD. No lymphadenopathy. No thyromegaly. LUNGS: Snoring respirations. Clear to auscultation. No wheezes or rhonchi. No intercostal retractions. HEART: Regular rate and rhythm. No murmur. ABDOMEN: Soft. Bowel sounds are present. No masses. No tenderness. EXTREMITIES: No pedal edema. No calf tenderness. NEUROLOGICAL: Patient is obtunded with minimal response to sternal rub. - Labs CBC & Chem 7: 09/17/16 04:34 09/17/16 04:28 Labs: Abnormal Lab Results - Last 24 Hours (Table) 09/16/16 09/16/16 09/17/16 Range/Units 04:30 17:52 00:00 WBC (3.8-10.6) k/uL Plt Count (150-450) k/uL Neutrophils # (1.3-7.7) k/uL Chloride (98-107) mmol/L Creatinine (0.66-1.25) mg/dL Glucose (74-99) mg/dL POC Glucose (mg/dL) 140 H 131 H (75-99) mg/dL EBV Capsid Ag IgG Ab >750.0 H (<18.0) U/mL EBV Early Antigen IgG 16.8 H (<9.0) U/mL EBV Nuclear Ag IgG Ab 282.0 H (<18.0) U/mL 09/17/16 09/17/16 Range/Units 04:28 04:34 WBC 19.0 H (3.8-10.6) k/uL Plt Count 148 L (150-450) k/uL Neutrophils # 16.8 H (1.3-7.7) k/uL Chloride 108 H (98-107) mmol/L Creatinine 0.60 L (0.66-1.25) mg/dL Glucose 102 H (74-99) mg/dL POC Glucose (mg/dL) (75-99) mg/dL EBV Capsid Ag IgG Ab (<18.0) U/mL EBV Early Antigen IgG (<9.0) U/mL EBV Nuclear Ag IgG Ab (<18.0) U/mL Microbiology - Last 24 Hours (Table) 09/16/16 01:32 Urine Culture - Preliminary Urine,Catheterized Assessment and Plan Plan: 1. 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 Consult with neurology. EEG is pending. Continue neuro checks. PT OT and speech therapy are on consult. Rule out seizure disorder. Patient did receive mannitol and in the emergency center 1 dose. Patient also noted to be febrile. Unclear if this is only related to stroke or if there is underlying infectious process such as pneumonia. Dr. Kwok is on consult. Patient is currently on ampicillin, vancomycin and ceftriaxone. Acyclovir was discontinued as patient is not suspected of having meningitis. Intensive care management by Dr. Sullivan. Patient is currently on aspirin 300 mg rectally daily and Lovenox. 2. Possible aspiration pneumonia found on repeat chest x-ray. There is mild infiltrate and atelectatic changes. Continue Unasyn per Dr. Kwok. 3. Syncopal episode at home. Cardiology is on consult. Echocardiogram as above. 4. Hypertension. Hydralazine as needed. 5. Hyperlipidemia. 6. Gastrointestinal prophylaxis. Continue Pepcid 20 mg IV every 12 hours.. 7. DVT prophylaxis. Patient on Lovenox. 8. CODE STATUS: No code. 9. Prognosis guarded. Patient will be admitted to the hospital for a minimum of 5 night stay. Discharge plan: To be determined Impression and plan of care have been directed as dictated by the signing physician. Robyn Cai nurse practitioner acting as scribe for signing physician. Time with Patient: Greater than 30
--- NOTE | 2016-09-17 15:45 | P.PN ---
Subjective Principal diagnosis: Patient is a pleasant 48-year-old female who is being followed by the neurology service for headache and altered mental status. Patient became confused at home and family brought her to the emergency room for further evaluation. Patient was complaining of a headache mostly in the bilateral occipital region. Computed tomography scan of the brain was done which was negative for any acute process. Patient was diagnosed with pneumonia and continues to be on antibiotics for this. Patient states her headache has subsided. She denies any changes in vision or dizziness. At the time of my evaluation, patient is resting comfortably in bed and appears to be in no acute distress. Objective - Vital Signs Vital signs: Vital Signs Temp 98.2 F 09/17/16 12:00 Pulse 92 09/17/16 15:00 Resp 16 09/17/16 15:00 BP 148/75 09/17/16 15:00 Pulse Ox 94 L 09/17/16 15:00 Intake & Output 09/16/16 09/17/16 09/17/16 18:59 06:59 18:59 Intake Total 1400 1290 1380 Output Total 612 760 567 Balance 788 530 813 Weight 58.4 kg Intake: IV 1350 1290 1380 ACETAMINOPHEN IV (For NPO 100 ) 1,000 mg In Empty Bag 1 bag @ 400 mls/hr IVPB ONCE ONE Rx#:[id number] Acyclovir Sodium 630 mg 100 In Sodium Chloride 0.9% 100 ml @ 100 mls/hr IV ONCE ONE Rx#:[id number] Ampicillin-Sulbactam 3 gm 100 400 In Sodium Chloride 0.9% 100 ml @ 100 mls/hr IVPB Q6HR [facility] Rx#:[id number] Sodium Chloride 0.9% 1, 900 1190 980 000 ml @ 100 mls/hr IV . Q10H [facility] Rx#:[id number] Vancomycin 1,250 mg In 250 Sodium Chloride 0.9% 250 ml @ 125 mls/hr IVPB Q12HR [facility] Rx#:[id number] Intake, IV Titration 50 Amount Ampicillin 1,000 mg In 50 Sodium Chloride 0.9% 50 ml @ 100 mls/hr IVPB Q6HR [facility] Rx#:[id number] Output: Urine 612 760 567 Other: Voiding Method Indwelling Catheter Indwelling Catheter Indwelling Catheter - Exam PHYSICAL EXAM: GENERAL APPEARANCE: Patient is a well-developed, female who appears to be in no acute distress. HEENT: Normocephalic, atraumatic, no facial asymmetry is seen. Neck is supple with no masses felt. CARDIOVASCULAR: Regular rate and rhythm. ABDOMEN: Nontender, nondistended. EXTREMITIES: Show no edema or clubbing. NEUROLOGICAL EXAM: Patient is awake, alert, and oriented 3. Speech and language are normal. Strength is full in all 4 extremities. Sensory exam is normal to light touch in all 4 extremities. No facial asymmetry is noted on cranial nerve testing. No tremors or seizure-like activity is seen. - Labs CBC & Chem 7: 09/17/16 04:34 09/17/16 04:28 Labs: Abnormal Lab Results - Last 24 Hours (Table) 09/16/16 09/16/16 09/17/16 Range/Units 04:30 17:52 00:00 WBC (3.8-10.6) k/uL Plt Count (150-450) k/uL Neutrophils # (1.3-7.7) k/uL Chloride (98-107) mmol/L Creatinine (0.66-1.25) mg/dL Glucose (74-99) mg/dL POC Glucose (mg/dL) 140 H 131 H (75-99) mg/dL EBV Capsid Ag IgG Ab >750.0 H (<18.0) U/mL EBV Early Antigen IgG 16.8 H (<9.0) U/mL EBV Nuclear Ag IgG Ab 282.0 H (<18.0) U/mL 09/17/16 09/17/16 09/17/16 Range/Units 04:28 04:34 11:56 WBC 19.0 H (3.8-10.6) k/uL Plt Count 148 L (150-450) k/uL Neutrophils # 16.8 H (1.3-7.7) k/uL Chloride 108 H (98-107) mmol/L Creatinine 0.60 L (0.66-1.25) mg/dL Glucose 102 H (74-99) mg/dL POC Glucose (mg/dL) 106 H (75-99) mg/dL EBV Capsid Ag IgG Ab (<18.0) U/mL EBV Early Antigen IgG (<9.0) U/mL EBV Nuclear Ag IgG Ab (<18.0) U/mL Microbiology - Last 24 Hours (Table) 09/16/16 01:32 Urine Culture - Final Urine,Catheterized Assessment and Plan Plan: Impression: 1. Recurrent headaches, currently subsided 2. Occipital neuritis bilaterally 3. Altered mental status, resolved 4. Acute toxic and infectious encephalopathy, improved 5. Pneumonia 6. Chronic pain syndrome Recommendations: Patient's altered mental status has resolved. She also denies headache at this time. As you recall, computed tomography scan of the brain was normal. EEG was done and results are pending. I did discuss with patient possibility of greater occipital nerve block which can be done in the outpatient setting should symptoms return. Continue antibiotic therapy for her pneumonia. Continue neurological checks. I will follow with you on an as- needed basis. Please feel free to call with any questions or concerns. I performed an examination of the patient and discussed the management with the PHARMACEUTICAL ASSISTANT. I have reviewed the PHARMACEUTICAL ASSISTANT notes and agree with the findings and plan of care.
--- NOTE | 2016-09-17 16:16 | P.PN ---
Subjective Principal diagnosis: Patient is an 85-year-old male who is being followed by the neurology service for stroke. Patient was brought to the emergency room after he had collapsed in the grocery store. CT of the brain initially showed no acute findings and was repeated later and showed evidence of acute stroke involving left parietal occipital region and left cerebellum. EEG showed moderate encephalopathy. Patient was febrile and infectious disease was consulted. At the time of my evaluation, patient continues to be unresponsive to verbal stimuli. Family is at the bedside. Objective - Vital Signs Vital signs: Vital Signs Temp 98.2 F 09/17/16 12:00 Pulse 92 09/17/16 15:00 Resp 16 09/17/16 15:00 BP 148/75 09/17/16 15:00 Pulse Ox 94 L 09/17/16 15:00 Intake & Output 09/16/16 09/17/16 09/17/16 18:59 06:59 18:59 Intake Total 1400 1290 1380 Output Total 612 760 567 Balance 788 530 813 Weight 58.4 kg Intake: IV 1350 1290 1380 ACETAMINOPHEN IV (For NPO 100 ) 1,000 mg In Empty Bag 1 bag @ 400 mls/hr IVPB ONCE ONE Rx#:[id number] Acyclovir Sodium 630 mg 100 In Sodium Chloride 0.9% 100 ml @ 100 mls/hr IV ONCE ONE Rx#:[id number] Ampicillin-Sulbactam 3 gm 100 400 In Sodium Chloride 0.9% 100 ml @ 100 mls/hr IVPB Q6HR [facility] Rx#:[id number] Sodium Chloride 0.9% 1, 900 1190 980 000 ml @ 100 mls/hr IV . Q10H [facility] Rx#:[id number] Vancomycin 1,250 mg In 250 Sodium Chloride 0.9% 250 ml @ 125 mls/hr IVPB Q12HR [facility] Rx#:[id number] Intake, IV Titration 50 Amount Ampicillin 1,000 mg In 50 Sodium Chloride 0.9% 50 ml @ 100 mls/hr IVPB Q6HR [facility] Rx#:[id number] Output: Urine 612 760 567 Other: Voiding Method Indwelling Catheter Indwelling Catheter Indwelling Catheter - Exam PHYSICAL EXAM: GENERAL APPEARANCE: Patient is a male who is being seen in the ICU HEENT: Normocephalic, atraumatic, Neck is supple with no masses felt. CARDIOVASCULAR: Regular rate and rhythm. ABDOMEN: Nontender, nondistended. EXTREMITIES: Show no edema or clubbing. NEUROLOGICAL EXAM: Patient is unresponsive to verbal stimuli. He has minimal movement to sternal rub. He does not withdraw to painful stimuli. Plantar reflex shows Babinski bilaterally. His tone is flaccid. No seizure-like activity is seen. - Labs CBC & Chem 7: 09/17/16 04:34 09/17/16 04:28 Labs: Abnormal Lab Results - Last 24 Hours (Table) 09/16/16 09/16/16 09/17/16 Range/Units 04:30 17:52 00:00 WBC (3.8-10.6) k/uL Plt Count (150-450) k/uL Neutrophils # (1.3-7.7) k/uL Chloride (98-107) mmol/L Creatinine (0.66-1.25) mg/dL Glucose (74-99) mg/dL POC Glucose (mg/dL) 140 H 131 H (75-99) mg/dL EBV Capsid Ag IgG Ab >750.0 H (<18.0) U/mL EBV Early Antigen IgG 16.8 H (<9.0) U/mL EBV Nuclear Ag IgG Ab 282.0 H (<18.0) U/mL 09/17/16 09/17/16 09/17/16 Range/Units 04:28 04:34 11:56 WBC 19.0 H (3.8-10.6) k/uL Plt Count 148 L (150-450) k/uL Neutrophils # 16.8 H (1.3-7.7) k/uL Chloride 108 H (98-107) mmol/L Creatinine 0.60 L (0.66-1.25) mg/dL Glucose 102 H (74-99) mg/dL POC Glucose (mg/dL) 106 H (75-99) mg/dL EBV Capsid Ag IgG Ab (<18.0) U/mL EBV Early Antigen IgG (<9.0) U/mL EBV Nuclear Ag IgG Ab (<18.0) U/mL Microbiology - Last 24 Hours (Table) 09/16/16 13:46 Blood Culture - Preliminary Blood No Growth after 24 hours 09/16/16 01:32 Urine Culture - Final Urine,Catheterized Assessment and Plan Plan: Impression: 1. Acute ischemic stroke, left middle cerebral artery and left posterior cerebral artery distribution 2. Unresponsiveness 3. Fever 4. Leukocytosis Recommendations: The patient does appear to have suffered a major ischemic stroke. Given his altered mentation, there is most likely significant brainstem involvement. Due to concern for cytotoxic edema, continue IV Decadron. Continue supportive care. Given the extent of the stroke, patient age, and current neurological exam, I do feel prognosis is poor. I did have a lengthy discussion with the family regarding prognosis. I will continue to follow with you. Further recommendations to follow.
[2016-09-17 17:56] LABS: Glucose,Whole Blood 106 mg/dL (75-99)
--- NOTE | 2016-09-17 22:52 | P.PN ---
Subjective Principal diagnosis: Fever This is an 85-year-old male. He has a known past medical history of hypertension and hyperlipidemia. No information is able to be obtained from the patient and no family is available. According to the ER notes, patient was at home but had been shopping earlier at [facility] and EMS was called due to a syncopal episode. When EMS arrived the patient was alert and oriented but enroute to the hospital he became unresponsive. Initially in the emergency center, he was lethargic but arousable and able to move all 4 extremities and answer very basic questions. He denied headache, chest pain, palpitations, shortness of breath, fever, abdominal pain, nausea, vomiting, diarrhea, dysuria , trauma. In the emergency center, patient was afebrile. Blood pressure was elevated at 202/95. Pulse ox was 97% on 2 L. Initial leukocytosis at 13.7, d- dimer 3.67, potassium 5.3 and CO2 20, GFR greater than 60, blood sugar 140. Troponin normal. Urinalysis was clear nitrate and leukoesterase negative. Urine drug screen was negative. CAT scan of the brain showed moderate cerebral atrophy and chronic small vessel ischemia with no acute abnormality. Chest x- ray shows extensive calcified pleural plaque. No acute lung disease. No heart failure. Patient was admitted to the intensive care unit as an overflow for selective care. He has subsequently developed a temperature max of 102.5. He has minimal response to sternal rub. Repeat troponin of 0.032. Influenza testing A and B negative. Albumin 4.8 Carotid Doppler shows moderate to severe atherosclerotic changes bilaterally without hemodynamically significant stenosis. CTA of the chest showed no evidence of acute pulmonary embolism. Mild infiltrates and atelectatic changes in both lung bases worse on the right, possible asbestos exposure, fluid distended esophagus and possibility of inflammatory process of the esophagus not excluded. Ultrasound venous Doppler duplex of the bilateral lower extremities was negative for DVT. Echocardiogram reveals mild aortic stenosis, mild mitral regurgitation, mild tricuspid regurgitation, mild concentric left ventricular hypertrophy, EF 55-60%. Repeat CAT scan of the brain shows new cortical and subcortical hypodensity at the left parietal occipital junction and extensive hypodensity in the left cerebral hemisphere suggestive of evolving acute infarcts. Dr. Rendon was initially called for agnostic lumbar puncture but because he has received Lovenox subcu, lumbar puncture was not completed. Subsequently the CAT scan revealed numerous evolving strokes Patient has had no improvement of his status. Family is in the midst of determining the overall course Objective - Vital Signs Vital signs: Vital Signs Temp 97.8 F 09/17/16 20:00 Pulse 90 09/17/16 22:00 Resp 13 09/17/16 22:00 BP 113/72 09/17/16 22:00 Pulse Ox 96 09/17/16 22:00 Intake & Output 09/17/16 09/17/16 09/18/16 06:59 18:59 06:59 Intake Total 1290 1680 400 Output Total 760 782 420 Balance 530 898 -20 Weight 58.4 kg Intake: IV 1290 1680 400 Ampicillin-Sulbactam 3 gm 100 400 400 In Sodium Chloride 0.9% 100 ml @ 100 mls/hr IVPB Q6HR MARISELA Rx#:[id number] Sodium Chloride 0.9% 1, 1190 1280 000 ml @ 100 mls/hr IV . Q10H MARISELA Rx#:[id number] Oral 0 Output: Urine 760 782 420 Other: Voiding Method Indwelling Catheter Indwelling Catheter Indwelling Catheter - Exam Gen: This is an 85-year-old male. He is seen in the intensive care unit. Sonorous respirations are improved HEENT: Head is atraumatic, normocephalic. Pupils equal, round. Sclerae is anicteric. Conjunctiva pink. NECK: Supple. No JVD. No lymphadenopathy. No thyromegaly. LUNGS: Snoring respirations. Clear to auscultation. No wheezes or rhonchi. No intercostal retractions. HEART: Regular rate and rhythm. No murmur. ABDOMEN: Soft. Bowel sounds are present. No masses. No tenderness. EXTREMITIES: No pedal edema. No calf tenderness. NEUROLOGICAL: Patient is obtunded - Labs CBC & Chem 7: 09/17/16 04:34 09/17/16 04:28 Labs: Abnormal Lab Results - Last 24 Hours (Table) 09/16/16 09/17/16 09/17/16 Range/Units 04:30 00:00 04:28 WBC (3.8-10.6) k/uL Plt Count (150-450) k/uL Neutrophils # (1.3-7.7) k/uL Chloride 108 H (98-107) mmol/L Creatinine 0.60 L (0.66-1.25) mg/dL Glucose 102 H (74-99) mg/dL POC Glucose (mg/dL) 131 H (75-99) mg/dL EBV Capsid Ag IgG Ab >750.0 H (<18.0) U/mL EBV Early Antigen IgG 16.8 H (<9.0) U/mL EBV Nuclear Ag IgG Ab 282.0 H (<18.0) U/mL 09/17/16 09/17/16 09/17/16 Range/Units 04:34 11:56 17:55 WBC 19.0 H (3.8-10.6) k/uL Plt Count 148 L (150-450) k/uL Neutrophils # 16.8 H (1.3-7.7) k/uL Chloride (98-107) mmol/L Creatinine (0.66-1.25) mg/dL Glucose (74-99) mg/dL POC Glucose (mg/dL) 106 H 106 H (75-99) mg/dL EBV Capsid Ag IgG Ab (<18.0) U/mL EBV Early Antigen IgG (<9.0) U/mL EBV Nuclear Ag IgG Ab (<18.0) U/mL Microbiology - Last 24 Hours (Table) 09/16/16 14:50 Blood Culture - Preliminary Blood No Growth after 24 hours 09/16/16 13:46 Blood Culture - Preliminary Blood No Growth after 24 hours 09/16/16 01:32 Urine Culture - Final Urine,Catheterized Laboratory Results WBC 19.0 k/uL (3.8-10.6) H 09/17/16 04:34 RBC 4.73 m/uL (4.30-5.90) 09/17/16 04:34 Hgb 15.2 gm/dL (13.0-17.5) 09/17/16 04:34 Hct 47.0 % (39.0-53.0) 09/17/16 04:34 MCV 99.4 fL (80.0-100.0) 09/17/16 04:34 MCH 32.1 pg (25.0-35.0) 09/17/16 04:34 MCHC 32.3 g/dL (31.0-37.0) 09/17/16 04:34 RDW 13.1 % (11.5-15.5) 09/17/16 04:34 Plt Count 148 k/uL (150-450) L 09/17/16 04:34 Neutrophils % 89 % 09/17/16 04:34 Lymphocytes % 6 % 09/17/16 04:34 Monocytes % 4 % 09/17/16 04:34 Eosinophils % 1 % 09/17/16 04:34 Basophils % 0 % 09/17/16 04:34 Neutrophils # 16.8 k/uL (1.3-7.7) H 09/17/16 04:34 Lymphocytes # 1.1 k/uL (1.0-4.8) 09/17/16 04:34 Monocytes # 0.8 k/uL (0-1.0) 09/17/16 04:34 Eosinophils # 0.1 k/uL (0-0.7) 09/17/16 04:34 Basophils # 0.0 k/uL (0-0.2) 09/17/16 04:34 Macrocytosis Slight 09/15/16 19:56 PT 11.1 sec (9.0-12.0) 09/15/16 21:53 INR 1.1 (<1.1) 09/15/16 21:53 APTT 23.8 sec (22.0-30.0) 09/15/16 21:53 D-Dimer 3.67 mg/L FEU (<0.60) H 09/15/16 21:53 Sample Site [facility] 09/16/16 09:45 ABG pH 7.47 (7.35-7.45) H 09/16/16 09:45 ABG pCO2 30 mmHg (35-45) L 09/16/16 09:45 ABG pO2 79 mmHg (83-108) L 09/16/16 09:45 ABG HCO3 22 mmol/L (21-25) 09/16/16 09:45 ABG Total CO2 22 mmol/L (19-24) 09/16/16 09:45 ABG O2 Saturation 97.0 % (94-97) 09/16/16 09:45 ABG Base Excess -2.0 mmol/L 09/16/16 09:45 FiO2 36 % 09/16/16 09:45 Sodium 140 mmol/L (137-145) 09/17/16 04:28 Potassium 4.2 mmol/L (3.5-5.1) 09/17/16 04:28 Chloride 108 mmol/L (98-107) H 09/17/16 04:28 Carbon Dioxide 22 mmol/L (22-30) 09/17/16 04:28 Anion Gap 10 mmol/L 09/17/16 04:28 BUN 14 mg/dL (9-20) 09/17/16 04:28 Creatinine 0.60 mg/dL (0.66-1.25) L 09/17/16 04:28 Est GFR (MDRD) Af Amer >60 (>60 ml/min/1.73 sqM) 09/17/16 04:28 Est GFR (MDRD) Non-Af >60 (>60 ml/min/1.73 sqM) 09/17/16 04:28 Glucose 102 mg/dL (74-99) H 09/17/16 04:28 POC Glucose (mg/dL) 106 mg/dL (75-99) H 09/17/16 17:55 POC Glu Senior Clinical [employer] Programmer ID Aquiles Dinero 09/17/16 17:[address] Glu mg/dL 114 mg/dL 09/16/16 14:50 Hemoglobin A1c 5.6 % (4.2-6.1) 09/16/16 14:50 Calcium 8.5 mg/dL (8.4-10.2) 09/17/16 04:28 Phosphorus 3.4 mg/dL (2.5-4.5) 09/17/16 04:28 Magnesium 2.0 mg/dL (1.6-2.3) 09/17/16 04:28 Total Bilirubin 0.9 mg/dL (0.2-1.3) 09/15/16 19:56 AST 39 U/L (17-59) 09/15/16 19:56 ALT 18 U/L (21-72) L 09/15/16 19:56 Alkaline Phosphatase 106 U/L (38-126) 09/15/16 19:56 Total Creatine Kinase 88 U/L (55-170) 09/15/16 19:56 CK-MB (CK-2) 2.3 ng/mL (0.0-2.4) 09/15/16 19:56 CK-MB (CK-2) Rel Index 2.6 09/15/16 19:56 Troponin I 0.032 ng/mL (0.000-0.034) 09/16/16 08:44 Total Protein 8.7 g/dL (6.3-8.2) H 09/15/16 19:56 Albumin 4.8 g/dL (3.5-5.0) 09/15/16 19:56 Triglycerides 55 mg/dL (<150) 09/16/16 04:30 Cholesterol 155 mg/dL (<200) 09/16/16 04:30 LDL Cholesterol, Calc 90 mg/dL (0-99) 09/16/16 04:30 HDL Cholesterol 54 mg/dL (40-60) 09/16/16 04:30 Urine Color Yellow 09/15/16 19:56 Urine Appearance Clear (Clear) 09/15/16 19:56 Urine pH 5.5 (5.0-8.0) 09/15/16 19:56 Ur Specific Bono 1.020 (1.001-1.035) 09/15/16 19:56 Urine Protein 1+ (Negative) H 09/15/16 19:56 Urine Glucose (UA) Negative (Negative) 09/15/16 19:56 Urine Ketones 1+ (Negative) H 09/15/16 19:56 Urine Blood Negative (Negative) 09/15/16 19:56 Urine Nitrate Negative (Negative) 09/15/16 19:56 Urine Bilirubin Negative (Negative) 09/15/16 19:56 Urine Urobilinogen 2.0 mg/dL (<2.0) 09/15/16 19:56 Ur Leukocyte Esterase Negative (Negative) 09/15/16 19:56 Urine RBC 1 /hpf (0-5) 09/15/16 19:56 Urine WBC 1 /hpf (0-5) 09/15/16 19:56 Hyaline Casts 66 /lpf (0-2) H 09/15/16 19:56 Urine Opiates Screen Not Detected (NotDetected) 09/15/16 19:56 Ur Oxycodone Screen Not Detected (NotDetected) 09/15/16 19:56 Urine Methadone Screen Not Detected (NotDetected) 09/15/16 19:56 Ur Propoxyphene Screen Not Detected (NotDetected) 09/15/16 19:56 Ur Barbiturates Screen Not Detected (NotDetected) 09/15/16 19:56 U Tricyclic Antidepress Not Detected (NotDetected) 09/15/16 19:56 Ur Phencyclidine Scrn Not Detected (NotDetected) 09/15/16 19:56 Ur Amphetamines Screen Not Detected (NotDetected) 09/15/16 19:56 U Methamphetamines Scrn Not Detected (NotDetected) 09/15/16 19:56 U Benzodiazepines Scrn Not Detected (NotDetected) 09/15/16 19:56 Urine Cocaine Screen Not Detected (NotDetected) 09/15/16 19:56 U Marijuana (THC) Screen Not Detected (NotDetected) 09/15/16 19:56 EBV Capsid Ag IgG Ab >750.0 U/mL (<18.0) H 09/16/16 04:30 EBV Capsid Ag IgM Ab <10.0 U/mL (<36.0) 09/16/16 04:30 EBV Early Antigen IgG 16.8 U/mL (<9.0) H 09/16/16 04:30 EBV Nuclear Ag IgG Ab 282.0 U/mL (<18.0) H 09/16/16 04:30 Influenza Type A RNA Not Detected (Not Detectd) 09/16/16 10:30 Influenza Type B (PCR) Not Detected (Not Detectd) 09/16/16 10:30 Microbiology 09/16/16 14:50 Blood Blood Culture - Preliminary No Growth after 24 hours 09/16/16 13:46 Blood Blood Culture - Preliminary No Growth after 24 hours 09/16/16 01:32 Urine,Catheterized Urine Culture - Final Assessment and Plan (1) Syncope Status: Acute (2) Fever Narrative/Plan: 85-year-old male presents to Hospital with sudden onset of syncope. Originally there was great concerns to his altered mental status due to his generally excellent functional status. He was shopping at my or just before the event occurred. Data now reveals evidence of an extensive amount of cerebrovascular accident multifocal in nature. This is the etiology of his fever. No other sources of fever been noted. Family is trying to determine overall course of care and likely will go to a comfort care status in the next short period of time. There was concerns aspiration pneumonias being treated with Unasyn. All antibiotics were discontinued. Unasyn will be discontinued if he is placed into comfort care. Status: Acute
[2016-09-17 23:43] LABS: Glucose,Whole Blood 107 mg/dL (75-99)
[2016-09-18] MEDS: SODIUM CHLORIDE 0.9% 1,000 ML IV SCH ×3 (00:30→23:49)
[2016-09-18] MEDS: AMPICILLIN-SULBACTAM 3 GM in SODIUM CHLORIDE 0.9% 100 ML IVPB SCH ×4 (00:30→20:01)
[2016-09-18] MEDS: INSULIN LISPRO (humaLOG) 300 UNIT/3 ML VIAL SQ SCH ×4 (00:30→17:55)
[2016-09-18] MEDS: DEXAMETHASONE SOD PHOSPHATE 4 MG/ML 1 ML VIAL IV SCH ×5 (00:30→23:58)
[2016-09-18 05:59] LABS: Glucose,Whole Blood 108 mg/dL (75-99)
[2016-09-18 07:04] LABS: Basophils % (A) 0 %; CH 32.2; CHCM 32.2; Eosinophils # (A) 0.1 k/uL (0-0.7); Eosinophils % (A) 0 %; HCT 51.4 % (39.0-53.0); HDW 2.25; HGB 16.4 gm/dL (13.0-17.5); Luc # (Auto) 0.09; Luc % (Auto) 1; Lymphocytes # (A) 0.8 k/uL (1.0-4.8); Lymphocytes % (A) 6 %; MCH 32.2 pg (25.0-35.0); MCV 100.6 fL (80.0-100.0); Monocytes # (A) 0.6 k/uL (0-1.0); Monocytes % (A) 4 %; Neutrophils # (A) 13.1 k/uL (1.3-7.7); Neutrophils % (A) 89 %; RDW 13.1 % (11.5-15.5); WBC 14.7 k/uL (3.8-10.6); WBC (Perox) 14.73
[2016-09-18 07:19] LABS: Anion Gap 9 mmol/L; Blood Urea Nitrogen 16 mg/dL (9-20); Calcium 8.4 mg/dL (8.4-10.2); Carbon Dioxide 24 mmol/L (22-30); Chloride 106 mmol/L (98-107); Glucose 111 mg/dL (74-99); Magnesium 1.8 mg/dL (1.6-2.3); Non-African American GFR(MDRD) >60 (>60 ml/min/1.73 sqM); Phosphorous 3.4 mg/dL (2.5-4.5); Potassium 4.2 mmol/L (3.5-5.1); Sodium 139 mmol/L (137-145)
[2016-09-18] MEDS: ENOXAPARIN 40 MG/0.4 ML SYRINGE SQ SCH (08:11)
[2016-09-18] MEDS: FAMOTIDINE 20 MG/2 ML VIAL IV SCH ×2 (08:11→20:02)
--- NOTE | 2016-09-18 11:54 | CDI ---
In responding to this query, please exercise your independent professional judgment. The [facility] Coding Staff and Clinical Documentation Specialists appreciate your assistance in clarifying documentation, maintaining compliance with coding guidelines, accurately documenting patients condition and capturing severity of illness. The fact that a question is asked does not imply that any particular answer is desired or expected. Communication forms are a method of clarifying documentation and are not made part of the Legal Health Record. Thank you in advance for your clarification. Last Revision, October 2015 Tammie Stafford [address] [facility] [place] [address] Documentation Clarification Form Date: 09/18/2016 11:11:00 AM From: Dana Schneider Admit Date: 09/15/2016 10:12:00 PM Patient Name: Manny Barbosa Visit Number: [id number] Discharge Date: Dr. Zenobia Romo/Haley Carrasco COMMISSIONS SPECIALIST-[place] Acute ischemic stroke is documented as a diagnosis in your consult and progress notes. CT Brain: 09/16/16: New cortical and subcortical hypodensity at the left parieto- occipital junction and extensive hypodensity in the left cerebellar hemisphere. Finding suggest evolving acute infarcts. No significant mass effect or acute intracranial hemorrhage History: Hypertension, Hyperlipidemia, Clinical Indicators: Syncopal episode was alert and oriented but enroute became unresponsive. VS: 202/ 68 18 Treatment: ICU monitoring Neurovascular check per protocol IV Decadron Asa (NE) In your professional opinion, please further clarify if the ischemic stroke is due to the following: Cause of Stroke/CVA: Stenosis/Occlusion Embolic Thrombolytic Hypertension Other (please specify) Unable to Determine Laterality: Left (per your documentation) Vessel/Location Involved: Left Middle Cerebral Artery (per your documentation) Left Posterior Cerebral Artery (per your documentation Also, indicate any deficits related to the Stroke/CVA in your documentation ( such as aphasia, ataxia, cognitive deficits, dysphagia, hemiplegiaetc.) Please document in your progress notes and discharge summary in order to capture severity of illness and risk of mortality. Include clinical findings that support your diagnosis. FYI: Press F11 to launch patient chart Place X here if this finding has no clinical significance, is not applicable or if you are not able to provide any additional documentation. MTDD
[2016-09-18 12:12] LABS: Glucose,Whole Blood 99 mg/dL (75-99)
--- NOTE | 2016-09-18 12:47 | CDI ---
In responding to this query, please exercise your independent professional judgment. The [facility] Coding Staff and Clinical Documentation Specialists appreciate your assistance in clarifying documentation, maintaining compliance with coding guidelines, accurately documenting patients condition and capturing severity of illness. The fact that a question is asked does not imply that any particular answer is desired or expected. Communication forms are a method of clarifying documentation and are not made part of the Legal Health Record. Thank you in advance for your clarification. Last Revision, June 2015 Tammie Stafford [address] [facility] [place] [address] Documentation Clarification Form Date: 09/18/2016 12:04:00 PM From: Dana Schneider Admit Date: 09/15/2016 10:12:00 PM Patient Name: Manny Barbosa Visit Number: [id number] Discharge Date: Dr. Zenobia Romo/Haley Carrasco NP-C A diagnosis of unresponsiveness documented in your progress notes on 09/17/16, lacks specificity. Patient history/risk factors: Hypertension, Hyperlipidemia Clinical Indicators: Syncopal episode while out shopping, was alert and oriented but enroute became unresponsive GCS: 7 Gloria agitation sedation scale: -4 Neurological assessment: Patient withdraws to painful stimuli no verbal response Lab findings: WBC 14.7, Ct Brain 09/16/16: new cortical and subcortical hypodensity at the left perieto- occipital junction and extensive hypodensity in the left cerebellar hemisphere. Findings suggest evolving acute infarcts. Vital Signs: In admission: 202/95 68 18 Other Clinical Indicators: Nursing documentation 09/16/16 : when repositioning patient he was noted to be posturing (decorticate) when on left side, this was followed by a period of muscular rigidity Treatment: Monitor Labs Neurovascular checks IV Decadron IV Fluids In your professional opinion, can you please further clarify unresponsiveness? Due to: Vasogenic Cerebral edema Coma Other (specified cause of unresponsiveness) Unable to determine Please document in your progress notes in order to capture severity of illness and risk of mortality. Include clinical findings that support your diagnosis. FYI: Press F11 to launch patient chart. Place X here if this finding has no clinical significance, is not applicable or if you are not able to provide any additional documentation. OLMAND
--- NOTE | 2016-09-18 12:53 | PN ---
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 He underwent a CT scan of the brain which showed what seems to be evolving stroke. The patient continues to be nonresponsive and sometimes agitated. Initially we got involved in the care of the patient because the neurologist requested a transesophageal echocardiogram. Apparently the neurologist was evaluated the patient today and put LYNNE on hold, which is not unreasonable at this point. From a cardiovascular standpoint of view, the patient has been stable. We will continue following up with the patient on p.r.n. basis.
--- NOTE | 2016-09-18 14:41 | P.PN ---
Subjective This is an 85-year-old male. His primary care physician is Dr. Puma Velazquez. He has a known past medical history of hypertension and hyperlipidemia. No information is able to be obtained from the patient and no family is available. According to the ER notes, patient was at home but had been shopping earlier at [facility] and EMS was called due to a syncopal episode. When EMS arrived the patient was alert and oriented but enroute to the hospital he became unresponsive. Initially in the emergency center, he was lethargic but arousable and able to move all 4 extremities and answer very basic questions. He denied headache, chest pain, palpitations, shortness of breath, fever, abdominal pain, nausea, vomiting, diarrhea, dysuria, trauma. In the emergency center, patient was afebrile. Blood pressure was elevated at 202/95. Pulse ox was 97% on 2 L. Initial leukocytosis at 13.7, d-dimer 3.67, potassium 5.3 and CO2 20, GFR greater than 60, blood sugar 140. Troponin normal. Urinalysis was clear nitrate and leukoesterase negative. Urine drug screen was negative. CAT scan of the brain showed moderate cerebral atrophy and chronic small vessel ischemia with no acute abnormality. Chest x-ray shows extensive calcified pleural plaque. No acute lung disease. No heart failure. Patient was admitted to the intensive care unit as an overflow for selective care. He has subsequently developed a temperature max of 102.5. He has minimal response to sternal rub. Repeat troponin of 0.032. Influenza testing A and B negative. Carotid Doppler shows moderate to severe atherosclerotic changes bilaterally without hemodynamically significant stenosis. CTA of the chest showed no evidence of acute pulmonary embolism. Mild infiltrates and atelectatic changes in both lung bases worse on the right, possible asbestos exposure, fluid distended esophagus and possibility of inflammatory process of the esophagus not excluded. Ultrasound venous Doppler duplex of the bilateral lower extremities was negative for DVT. Echocardiogram reveals mild aortic stenosis, mild mitral regurgitation, mild tricuspid regurgitation, mild concentric left ventricular hypertrophy, EF 55-60%. Repeat CAT scan of the brain shows new cortical and subcortical hypodensity at the left parietal occipital junction and extensive hypodensity in the left cerebral hemisphere suggestive of evolving acute infarcts. Dr. Rendon was initially called for agnostic lumbar puncture but because he has received Lovenox subcu, lumbar puncture was not completed. Subsequently the CAT scan revealed numerous evolving strokes and consult with Dr. Dr. Rendon and lumbar puncture orders canceled. Patient has been started on ceftriaxone and ampicillin and vancomycin. Consults currently in place with Dr. Romo, Dr. Freeman, Dr. Kwok and Dr. Shultz. PT, OT, speech therapy all in place. 09/17: Patient's mental status is unchanged. Patient will be transferred selective care today. He is on Ativan for agitation. 09/18: Patient has continued to be unresponsive but this afternoon with minimal response. He is followed by neurology and on IV Decadron. Family may consider hospice care. EEG is abnormal due to presence of generalized slowing of the background rhythm consistent with moderate encephalopathy. Cardiology is following on an as-needed basis. Objective - Vital Signs Vital signs: Vital Signs Temp 97.2 F L 09/18/16 07:00 Pulse 89 09/18/16 07:00 Resp 16 09/18/16 08:00 BP 136/89 09/18/16 07:00 Pulse Ox 94 L 09/18/16 07:00 Intake & Output 09/17/16 09/18/16 09/18/16 18:59 06:59 18:59 Intake Total 1680 1100 Output Total 782 1420 Balance 898 -320 Intake: IV 1680 1100 Ampicillin-Sulbactam 3 gm 400 100 In Sodium Chloride 0.9% 100 ml @ 100 mls/hr IVPB Q6HR MARISELA Rx#:[id number] Sodium Chloride 0.9% 1, 1280 1000 000 ml @ 100 mls/hr IV . Q10H MARISELA Rx#:[id number] Oral 0 Output: Urine 782 1420 Uretheral (Dela Cruz) 600 Other: Voiding Method Indwelling Catheter Indwelling Catheter Indwelling Catheter - Exam Gen: This is an 85-year-old male. He is seen in the intensive care unit. HEENT: Head is atraumatic, normocephalic. Pupils equal, round. Sclerae is anicteric. Conjunctiva pink. NECK: Supple. No JVD. No lymphadenopathy. No thyromegaly. LUNGS: Snoring respirations. Clear to auscultation. No wheezes or rhonchi. No intercostal retractions. HEART: Regular rate and rhythm. No murmur. ABDOMEN: Soft. Bowel sounds are present. No masses. No tenderness. EXTREMITIES: No pedal edema. No calf tenderness. NEUROLOGICAL: Patient is obtunded with minimal response to sternal rub. - Labs CBC & Chem 7: 09/18/16 06:47 09/18/16 06:47 Labs: Abnormal Lab Results - Last 24 Hours (Table) 09/17/16 09/17/16 09/17/16 Range/Units 11:56 17:55 23:41 WBC (3.8-10.6) k/uL MCV (80.0-100.0) fL Neutrophils # (1.3-7.7) k/uL Lymphocytes # (1.0-4.8) k/uL Creatinine (0.66-1.25) mg/dL Glucose (74-99) mg/dL POC Glucose (mg/dL) 106 H 106 H 107 H (75-99) mg/dL 09/18/16 09/18/16 09/18/16 Range/Units 05:50 06:47 06:47 WBC 14.7 H (3.8-10.6) k/uL MCV 100.6 H (80.0-100.0) fL Neutrophils # 13.1 H (1.3-7.7) k/uL Lymphocytes # 0.8 L (1.0-4.8) k/uL Creatinine 0.63 L (0.66-1.25) mg/dL Glucose 111 H (74-99) mg/dL POC Glucose (mg/dL) 108 H (75-99) mg/dL Microbiology - Last 24 Hours (Table) 09/16/16 14:50 Blood Culture - Preliminary Blood No Growth after 24 hours 09/16/16 13:46 Blood Culture - Preliminary Blood No Growth after 24 hours 09/16/16 01:32 Urine Culture - Final Urine,Catheterized Assessment and Plan Plan: 1. 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 Consult with neurology. EEG as above. Continue neuro checks. PT OT and speech therapy are on consult. Continue IV Decadron. Patient also noted to be febrile. Unclear if this is only related to stroke or if there is underlying infectious process such as pneumonia. Dr. Kwok is on consult with recommendations for Unasyn. Acyclovir was discontinued as patient is not suspected of having meningitis. Intensive care management by Dr. Shultz. Patient is currently on aspirin 300 mg rectally daily and Lovenox. 2. Possible aspiration pneumonia found on repeat chest x-ray. There is mild infiltrate and atelectatic changes. Continue Unasyn per Dr. Kwok. 3. Syncopal episode at home. Cardiology is on consult. Echocardiogram as above. 4. Hypertension. Hydralazine as needed. 5. Hyperlipidemia. 6. Gastrointestinal prophylaxis. Continue Pepcid 20 mg IV every 12 hours.. 7. DVT prophylaxis. Patient on Lovenox. 8. CODE STATUS: No code. 9. Prognosis poor. Patient will be admitted to the hospital for a minimum of 5 night stay. Discharge plan: To be determined Impression and plan of care have been directed as dictated by the signing physician. Robyn Cai nurse practitioner acting as scribe for signing physician. Time with Patient: Greater than 30
[2016-09-18 15:51] VITALS: BMI 19.0
--- NOTE | 2016-09-18 16:23 | P.PN ---
Subjective This is an 85-year-old gentleman who follows with Dr. Velazquez as his primary care physician. He has a history of hypertension, hyperlipidemia. He had a syncopal episode while shopping at [employer] on 09/15/2016. He was found to have an acute CVA with extensive hypodensity in the left cerebral her hemisphere strongly suggestive of evolving infarct. He has been seen and evaluated by neurology. The patient is seen again today 09/18/2016 in follow-up on the surgical floor. The patient does respond to painful stimuli but seems quite obtunded otherwise. He remains on IV Decadron. We're consulted for possible aspiration pneumonia. There is some mild infiltrate and atelectatic changes. The patient remains on Unasyn. Objective - Vital Signs Vital signs: Vital Signs Temp 97.2 F L 09/18/16 07:00 Pulse 89 09/18/16 07:00 Resp 16 09/18/16 08:00 BP 136/89 09/18/16 07:00 Pulse Ox 94 L 09/18/16 07:00 Intake & Output 09/17/16 09/18/16 09/18/16 18:59 06:59 18:59 Intake Total 1680 1100 Output Total 782 1420 535 Balance 898 -320 -535 Weight 58.4 kg Intake: IV 1680 1100 Ampicillin-Sulbactam 3 gm 400 100 In Sodium Chloride 0.9% 100 ml @ 100 mls/hr IVPB Q6HR [facility]ISELA Rx#:[id number] Sodium Chloride 0.9% 1, 1280 1000 000 ml @ 100 mls/hr IV . Q10H MARISELA Rx#:[id number] Oral 0 Output: Urine 782 1420 535 Uretheral (Dela Cruz) 600 Other: Voiding Method Indwelling Catheter Indwelling Catheter Indwelling Catheter - Exam GENERAL EXAM: Obtunded. Nonverbal. HEAD: Normocephalic. EYES: Pupils, equal size. NOSE: Clear with pink turbinates. THROAT: No erythema or exudates. NECK: No masses, no JVD. CHEST: No chest wall deformity. LUNGS: Equal air entry with no crackles, wheeze, rhonchi or dullness. CVS: S1 and S2 normal with no audible mumurs, regular rhythm. ABDOMEN: No hepatosplenomegaly, normal bowel sounds, no guarding or rigidity. Extremities: There is no significant peripheral edema. No clubbing, no cyanosis. Peripheral pulses are intact. - Labs CBC & Chem 7: 09/18/16 06:47 09/18/16 06:47 Labs: Abnormal Lab Results - Last 24 Hours (Table) 09/17/16 09/17/16 09/18/16 Range/Units 17:55 23:41 05:50 WBC (3.8-10.6) k/uL MCV (80.0-100.0) fL Neutrophils # (1.3-7.7) k/uL Lymphocytes # (1.0-4.8) k/uL Creatinine (0.66-1.25) mg/dL Glucose (74-99) mg/dL POC Glucose (mg/dL) 106 H 107 H 108 H (75-99) mg/dL 09/18/16 09/18/16 Range/Units 06:47 06:47 WBC 14.7 H (3.8-10.6) k/uL MCV 100.6 H (80.0-100.0) fL Neutrophils # 13.1 H (1.3-7.7) k/uL Lymphocytes # 0.8 L (1.0-4.8) k/uL Creatinine 0.63 L (0.66-1.25) mg/dL Glucose 111 H (74-99) mg/dL POC Glucose (mg/dL) (75-99) mg/dL Microbiology - Last 24 Hours (Table) 09/16/16 13:46 Blood Culture - Preliminary Blood No Growth after 48 hours 09/16/16 14:50 Blood Culture - Preliminary Blood No Growth after 24 hours 09/16/16 01:32 Urine Culture - Final Urine,Catheterized Assessment and Plan Plan: Imoression: #1 Acute evolving stroke involving the left parietal-occipital junction of the left cerebellar hemisphere. #2 Recent hypertension. #3 Hyperlipidemia. #4 Suspect aspiration pneumonia. Empirically on Unasyn. Plan: The patient was seen and evaluated by Dr. Shultz. The patient is a DO NOT RESUSCITATE/DO NOT INTUBATE CODE STATUS. We'll continue with his current medications for now. The family may consider comfort care at some point. We' ll follow the patient on as-needed basis.
--- NOTE | 2016-09-18 16:39 | P.PN ---
Subjective Principal diagnosis: Patient is an 85-year-old male who is being followed by the neurology service for stroke. Patient was brought to the emergency room after he had collapsed in the grocery store. CT of the brain initially showed no acute findings and was repeated later and showed evidence of acute stroke involving left parietal occipital region and left cerebellum. EEG showed moderate encephalopathy. Patient was febrile and infectious disease was consulted. At the time of my evaluation, patient is slightly more responsive. Family is at the bedside. Objective - Vital Signs Vital signs: Vital Signs Temp 97.2 F L 09/18/16 07:00 Pulse 89 09/18/16 07:00 Resp 16 09/18/16 08:00 BP 136/89 09/18/16 07:00 Pulse Ox 94 L 09/18/16 07:00 Intake & Output 09/17/16 09/18/16 09/18/16 18:59 06:59 18:59 Intake Total 1680 1100 Output Total 782 1420 535 Balance 898 -320 -535 Weight 58.4 kg Intake: IV 1680 1100 Ampicillin-Sulbactam 3 gm 400 100 In Sodium Chloride 0.9% 100 ml @ 100 mls/hr IVPB Q6HR [facility] Rx#:[id number] Sodium Chloride 0.9% 1, 1280 1000 000 ml @ 100 mls/hr IV . Q10H [facility]ELA Rx#:[id number] Oral 0 Output: Urine 782 1420 535 Uretheral (Dela Cruz) 600 Other: Voiding Method Indwelling Catheter Indwelling Catheter Indwelling Catheter - Exam PHYSICAL EXAM: GENERAL APPEARANCE: Patient is a male who is being seen in the ICU HEENT: Normocephalic, atraumatic, Neck is supple with no masses felt. CARDIOVASCULAR: Regular rate and rhythm. ABDOMEN: Nontender, nondistended. EXTREMITIES: Show no edema or clubbing. NEUROLOGICAL EXAM: Patient is slightly more responsive to verbal stimuli. Patient does not follow verbal commands. He does withdraw slightly to painful stimuli. He does move all 4 extremities purposefully. Plantar reflex shows Babinski bilaterally. No seizure-like activity is seen. - Labs CBC & Chem 7: 09/18/16 06:47 09/18/16 06:47 Labs: Abnormal Lab Results - Last 24 Hours (Table) 09/17/16 09/17/16 09/18/16 Range/Units 17:55 23:41 05:50 WBC (3.8-10.6) k/uL MCV (80.0-100.0) fL Neutrophils # (1.3-7.7) k/uL Lymphocytes # (1.0-4.8) k/uL Creatinine (0.66-1.25) mg/dL Glucose (74-99) mg/dL POC Glucose (mg/dL) 106 H 107 H 108 H (75-99) mg/dL 09/18/16 09/18/16 Range/Units 06:47 06:47 WBC 14.7 H (3.8-10.6) k/uL MCV 100.6 H (80.0-100.0) fL Neutrophils # 13.1 H (1.3-7.7) k/uL Lymphocytes # 0.8 L (1.0-4.8) k/uL Creatinine 0.63 L (0.66-1.25) mg/dL Glucose 111 H (74-99) mg/dL POC Glucose (mg/dL) (75-99) mg/dL Microbiology - Last 24 Hours (Table) 09/16/16 13:46 Blood Culture - Preliminary Blood No Growth after 48 hours 09/16/16 14:50 Blood Culture - Preliminary Blood No Growth after 24 hours 09/16/16 01:32 Urine Culture - Final Urine,Catheterized Assessment and Plan Plan: Impression: 1. Acute ischemic stroke, left middle cerebral artery and left posterior cerebral artery distribution 2. Hypertension 3. Fever 4. Leukocytosis Recommendations: The patient does appear to have suffered a major ischemic stroke. Given his altered mentation, there is most likely significant brainstem involvement. Due to concern for cytotoxic edema, continue IV Decadron for another 48 hours. Continue supportive care. Given the extent of the stroke, patient age, and current neurological exam, I do feel prognosis is poor. I did have a lengthy discussion with the family regarding prognosis. I did explain to them the chance of having a meaningful neurological recovery is low. I will continue to follow with you. Further recommendations to follow. I performed an examination of the patient and discussed the management with the PROJECT PLANNER. I have reviewed the PROJECT PLANNER notes and agree with the findings and plan of care.
[2016-09-18] MEDS: LORazepam 2 MG/ML SYRINGE IV PRN (17:09)
[2016-09-18 17:50] LABS: Glucose,Whole Blood 93 mg/dL (75-99)
[2016-09-18] MEDS ORDERED: ACETAMINOPHEN IV (For NPO) 1,000 MG in EMPTY BAG 1 BAG IVPB PRN (17:55)
[2016-09-18] MEDS ORDERED: ACETAMINOPHEN IV (For NPO) 1,000 MG in EMPTY BAG 1 BAG IVPB SCH (18:00)
[2016-09-18] MEDS: ASPIRIN 300 MG SUPP RECTAL SCH (18:00)
--- NOTE | 2016-09-18 19:17 | XR ---
EXAMINATION TYPE: XR chest 1V portable DATE OF EXAM: 09/18/2016 7:10 PM COMPARISON: 09/15/2016 HISTORY: NG tube placement TECHNIQUE: Single frontal view of the chest is obtained. FINDINGS: There is a nasogastric tube. The lower end of the tube is not included on the image. Tip i s probably in the stomach. There is extensive bilateral calcified pleural plaque. There is infiltrate in the right lung in the right lower lobe. There are sternal wires. IMPRESSION: NG tube is probably in good position. There is new right lower lobe pneumonia compared t o last exam. Extensive calcified pleural plaque.
[2016-09-18 20:02] LABS: Glucose,Whole Blood 97 mg/dL (75-99)
[2016-09-19 00:11] LABS: Glucose,Whole Blood 117 mg/dL (75-99)
--- NOTE | 2016-09-19 00:27 | P.PN ---
Subjective Principal diagnosis: Fever This is an 85-year-old male. He has a known past medical history of hypertension and hyperlipidemia. No information is able to be obtained from the patient and no family is available. According to the ER notes, patient was at home but had been shopping earlier at [facility] and EMS was called due to a syncopal episode. When EMS arrived the patient was alert and oriented but enroute to the hospital he became unresponsive. Initially in the emergency center, he was lethargic but arousable and able to move all 4 extremities and answer very basic questions. He denied headache, chest pain, palpitations, shortness of breath, fever, abdominal pain, nausea, vomiting, diarrhea, dysuria , trauma. In the emergency center, patient was afebrile. Blood pressure was elevated at 202/95. Pulse ox was 97% on 2 L. Initial leukocytosis at 13.7, d- dimer 3.67, potassium 5.3 and CO2 20, GFR greater than 60, blood sugar 140. Troponin normal. Urinalysis was clear nitrate and leukoesterase negative. Urine drug screen was negative. CAT scan of the brain showed moderate cerebral atrophy and chronic small vessel ischemia with no acute abnormality. Chest x- ray shows extensive calcified pleural plaque. No acute lung disease. No heart failure. Patient was admitted to the intensive care unit as an overflow for selective care. He has subsequently developed a temperature max of 102.5. He has minimal response to sternal rub. Repeat troponin of 0.032. Influenza testing A and B negative. Albumin 4.8 Carotid Doppler shows moderate to severe atherosclerotic changes bilaterally without hemodynamically significant stenosis. CTA of the chest showed no evidence of acute pulmonary embolism. Mild infiltrates and atelectatic changes in both lung bases worse on the right, possible asbestos exposure, fluid distended esophagus and possibility of inflammatory process of the esophagus not excluded. Ultrasound venous Doppler duplex of the bilateral lower extremities was negative for DVT. Echocardiogram reveals mild aortic stenosis, mild mitral regurgitation, mild tricuspid regurgitation, mild concentric left ventricular hypertrophy, EF 55-60%. Repeat CAT scan of the brain shows new cortical and subcortical hypodensity at the left parietal occipital junction and extensive hypodensity in the left cerebral hemisphere suggestive of evolving acute infarcts. Dr. Rendon was initially called for agnostic lumbar puncture but because he has received Lovenox subcu, lumbar puncture was not completed. Subsequently the CAT scan revealed numerous evolving strokes Patient has had no improvement of his status. Family is in the midst of determining the overall course as I arrive the sink staff is attempting to place an NG tube. There were having difficulties. The patient was repositioned and NG tube was personally in Objective - Vital Signs Vital signs: Vital Signs Temp 97.7 F 09/18/16 20:00 Pulse 111 H 09/18/16 20:00 Resp 18 09/18/16 20:00 BP 158/74 09/18/16 20:00 Pulse Ox 94 L 09/18/16 20:00 Intake & Output 09/18/16 09/18/16 09/19/16 06:59 18:59 06:59 Intake Total 1100 Output Total 1420 535 Balance -320 -535 Weight 58.4 kg Intake: IV 1100 Ampicillin-Sulbactam 3 gm 100 In Sodium Chloride 0.9% 100 ml @ 100 mls/hr IVPB Q6HR [facility]ELA Rx#:[id number] Sodium Chloride 0.9% 1, 1000 000 ml @ 100 mls/hr IV . Q10H [facility]ELA Rx#:[id number] Oral 0 Output: Urine 1420 535 Uretheral (Dela Cruz) 600 Other: Voiding Method Indwelling Catheter Indwelling Catheter Indwelling Catheter - Exam Gen: This is an 85-year-old male. He is seen in the intensive care unit. Sonorous respirations are improved HEENT: Head is atraumatic, normocephalic. Pupils equal, round. Sclerae is anicteric. Conjunctiva pink. NECK: Supple. No JVD. No lymphadenopathy. No thyromegaly. LUNGS: respiratory pattern is improved. He has crackles at the right base which are new HEART: Regular rate and rhythm. No murmur. ABDOMEN: Soft. Bowel sounds are present. No masses. No tenderness. EXTREMITIES: No pedal edema. No calf tenderness. NEUROLOGICAL: Patient is obtunded - Labs CBC & Chem 7: 09/18/16 06:47 09/18/16 06:47 Labs: Abnormal Lab Results - Last 24 Hours (Table) 09/18/16 09/18/16 09/18/16 Range/Units 05:50 06:47 06:47 WBC 14.7 H (3.8-10.6) k/uL MCV 100.6 H (80.0-100.0) fL Neutrophils # 13.1 H (1.3-7.7) k/uL Lymphocytes # 0.8 L (1.0-4.8) k/uL Creatinine 0.63 L (0.66-1.25) mg/dL Glucose 111 H (74-99) mg/dL POC Glucose (mg/dL) 108 H (75-99) mg/dL 09/18/16 Range/Units 23:57 WBC (3.8-10.6) k/uL MCV (80.0-100.0) fL Neutrophils # (1.3-7.7) k/uL Lymphocytes # (1.0-4.8) k/uL Creatinine (0.66-1.25) mg/dL Glucose (74-99) mg/dL POC Glucose (mg/dL) 117 H (75-99) mg/dL Microbiology - Last 24 Hours (Table) 09/16/16 14:50 Blood Culture - Preliminary Blood No Growth after 48 hours 09/16/16 13:46 Blood Culture - Preliminary Blood No Growth after 48 hours Laboratory Results WBC 14.7 k/uL (3.8-10.6) H 09/18/16 06:47 RBC 5.10 m/uL (4.30-5.90) 09/18/16 06:47 Hgb 16.4 gm/dL (13.0-17.5) 09/18/16 06:47 Hct 51.4 % (39.0-53.0) 09/18/16 06:47 MCV 100.6 fL (80.0-100.0) H 09/18/16 06:47 MCH 32.2 pg (25.0-35.0) 09/18/16 06:47 MCHC 32.0 g/dL (31.0-37.0) 09/18/16 06:47 RDW 13.1 % (11.5-15.5) 09/18/16 06:47 Plt Count 152 k/uL (150-450) 09/18/16 06:47 Neutrophils % 89 % 09/18/16 06:47 Lymphocytes % 6 % 09/18/16 06:47 Monocytes % 4 % 09/18/16 06:47 Eosinophils % 0 % 09/18/16 06:47 Basophils % 0 % 09/18/16 06:47 Neutrophils # 13.1 k/uL (1.3-7.7) H 09/18/16 06:47 Lymphocytes # 0.8 k/uL (1.0-4.8) L 09/18/16 06:47 Monocytes # 0.6 k/uL (0-1.0) 09/18/16 06:47 Eosinophils # 0.1 k/uL (0-0.7) 09/18/16 06:47 Basophils # 0.0 k/uL (0-0.2) 09/18/16 06:47 Macrocytosis Slight 09/15/16 19:56 PT 11.1 sec (9.0-12.0) 09/15/16 21:53 INR 1.1 (<1.1) 09/15/16 21:53 APTT 23.8 sec (22.0-30.0) 09/15/16 21:53 D-Dimer 3.67 mg/L FEU (<0.60) H 09/15/16 21:[address] [facility] 09/16/16 09:45 ABG pH 7.47 (7.35-7.45) H 09/16/16 09:45 ABG pCO2 30 mmHg (35-45) L 09/16/16 09:45 ABG pO2 79 mmHg (83-108) L 09/16/16 09:45 ABG HCO3 22 mmol/L (21-25) 09/16/16 09:45 ABG Total CO2 22 mmol/L (19-24) 09/16/16 09:45 ABG O2 Saturation 97.0 % (94-97) 09/16/16 09:45 ABG Base Excess -2.0 mmol/L 09/16/16 09:45 FiO2 36 % 09/16/16 09:45 Sodium 139 mmol/L (137-145) 09/18/16 06:47 Potassium 4.2 mmol/L (3.5-5.1) 09/18/16 06:47 Chloride 106 mmol/L (98-107) 09/18/16 06:47 Carbon Dioxide 24 mmol/L (22-30) 09/18/16 06:47 Anion Gap 9 mmol/L 09/18/16 06:47 BUN 16 mg/dL (9-20) 09/18/16 06:47 Creatinine 0.63 mg/dL (0.66-1.25) L 09/18/16 06:47 Est GFR (MDRD) Af Amer >60 (>60 ml/min/1.73 sqM) 09/18/16 06:47 Est GFR (MDRD) Non-Af >60 (>60 ml/min/1.73 sqM) 09/18/16 06:47 Glucose 111 mg/dL (74-99) H 09/18/16 06:47 POC Glucose (mg/dL) 117 mg/dL (75-99) H 09/18/16 23:57 POC Glu Veterinary Technician Instructor Isi Daley 09/18/16 23:[address] Glu mg/dL 114 mg/dL 09/16/16 14:50 Hemoglobin A1c 5.6 % (4.2-6.1) 09/16/16 14:50 Calcium 8.4 mg/dL (8.4-10.2) 09/18/16 06:47 Phosphorus 3.4 mg/dL (2.5-4.5) 09/18/16 06:47 Magnesium 1.8 mg/dL (1.6-2.3) 09/18/16 06:47 Total Bilirubin 0.9 mg/dL (0.2-1.3) 09/15/16 19:56 AST 39 U/L (17-59) 09/15/16 19:56 ALT 18 U/L (21-72) L 09/15/16 19:56 Alkaline Phosphatase 106 U/L (38-126) 09/15/16 19:56 Total Creatine Kinase 88 U/L (55-170) 09/15/16 19:56 CK-MB (CK-2) 2.3 ng/mL (0.0-2.4) 09/15/16 19:56 CK-MB (CK-2) Rel Index 2.6 09/15/16 19:56 Troponin I 0.032 ng/mL (0.000-0.034) 09/16/16 08:44 Total Protein 8.7 g/dL (6.3-8.2) H 09/15/16 19:56 Albumin 4.8 g/dL (3.5-5.0) 09/15/16 19:56 Triglycerides 55 mg/dL (<150) 09/16/16 04:30 Cholesterol 155 mg/dL (<200) 09/16/16 04:30 LDL Cholesterol, Calc 90 mg/dL (0-99) 09/16/16 04:30 HDL Cholesterol 54 mg/dL (40-60) 09/16/16 04:30 Urine Color Yellow 09/15/16 19:56 Urine Appearance Clear (Clear) 09/15/16 19:56 Urine pH 5.5 (5.0-8.0) 09/15/16 19:56 Ur Specific Archer 1.020 (1.001-1.035) 09/15/16 19:56 Urine Protein 1+ (Negative) H 09/15/16 19:56 Urine Glucose (UA) Negative (Negative) 09/15/16 19:56 Urine Ketones 1+ (Negative) H 09/15/16 19:56 Urine Blood Negative (Negative) 09/15/16 19:56 Urine Nitrate Negative (Negative) 09/15/16 19:56 Urine Bilirubin Negative (Negative) 09/15/16 19:56 Urine Urobilinogen 2.0 mg/dL (<2.0) 09/15/16 19:56 Ur Leukocyte Esterase Negative (Negative) 09/15/16 19:56 Urine RBC 1 /hpf (0-5) 09/15/16 19:56 Urine WBC 1 /hpf (0-5) 09/15/16 19:56 Hyaline Casts 66 /lpf (0-2) H 09/15/16 19:56 Urine Opiates Screen Not Detected (NotDetected) 09/15/16 19:56 Ur Oxycodone Screen Not Detected (NotDetected) 09/15/16 19:56 Urine Methadone Screen Not Detected (NotDetected) 09/15/16 19:56 Ur Propoxyphene Screen Not Detected (NotDetected) 09/15/16 19:56 Ur Barbiturates Screen Not Detected (NotDetected) 09/15/16 19:56 U Tricyclic Antidepress Not Detected (NotDetected) 09/15/16 19:56 Ur Phencyclidine Scrn Not Detected (NotDetected) 09/15/16 19:56 Ur Amphetamines Screen Not Detected (NotDetected) 09/15/16 19:56 U Methamphetamines Scrn Not Detected (NotDetected) 09/15/16 19:56 U Benzodiazepines Scrn Not Detected (NotDetected) 09/15/16 19:56 Urine Cocaine Screen Not Detected (NotDetected) 09/15/16 19:56 U Marijuana (THC) Screen Not Detected (NotDetected) 09/15/16 19:56 EBV Capsid Ag IgG Ab >750.0 U/mL (<18.0) H 09/16/16 04:30 EBV Capsid Ag IgM Ab <10.0 U/mL (<36.0) 09/16/16 04:30 EBV Early Antigen IgG 16.8 U/mL (<9.0) H 09/16/16 04:30 EBV Nuclear Ag IgG Ab 282.0 U/mL (<18.0) H 09/16/16 04:30 Influenza Type A RNA Not Detected (Not Detectd) 09/16/16 10:30 Influenza Type B (PCR) Not Detected (Not Detectd) 09/16/16 10:30 Microbiology 09/16/16 14:50 Blood Blood Culture - Preliminary No Growth after 48 hours 09/16/16 13:46 Blood Blood Culture - Preliminary No Growth after 48 hours 09/16/16 01:32 Urine,Catheterized Urine Culture - Final Assessment and Plan (1) Syncope Status: Acute (2) Fever Narrative/Plan: 85-year-old male presents to Hospital with sudden onset of syncope. Originally there was great concerns to his altered mental status due to his generally excellent functional status. He was shopping at my or just before the event occurred. Data now reveals evidence of an extensive amount of cerebrovascular accident multifocal in nature. This is the etiology of his fever. No other sources of fever been noted. Family is trying to determine overall course of care and likely will go to a comfort care status in the next short period of time. There appears to be aspiration pneumonia being treated with Unasyn. NG tube was placed with some minimal difficulty Status: Acute
[2016-09-19] MEDS: AMPICILLIN-SULBACTAM 3 GM in SODIUM CHLORIDE 0.9% 100 ML IVPB SCH ×4 (00:53→20:56)
[2016-09-19] MEDS: INSULIN LISPRO (humaLOG) 300 UNIT/3 ML VIAL SQ SCH ×4 (05:20→17:58)
[2016-09-19 05:25] LABS: Glucose,Whole Blood 115 mg/dL (75-99)
[2016-09-19] MEDS: DEXAMETHASONE SOD PHOSPHATE 4 MG/ML 1 ML VIAL IV SCH ×3 (05:32→17:26)
[2016-09-19] MEDS: SODIUM CHLORIDE 0.9% 1,000 ML IV SCH ×2 (05:33→17:20)
[2016-09-19] MEDS: ENOXAPARIN 40 MG/0.4 ML SYRINGE SQ SCH (08:35)
[2016-09-19] MEDS: FAMOTIDINE 20 MG/2 ML VIAL IV SCH ×2 (08:35→20:56)
[2016-09-19] MEDS: ASPIRIN 300 MG SUPP RECTAL SCH (08:35)
--- NOTE | 2016-09-19 10:46 | P.PN ---
Subjective Principal diagnosis: Patient is an 85-year-old male who is being followed by the neurology service for stroke. Patient was brought to the emergency room after he had collapsed in the grocery store. CT of the brain initially showed no acute findings and was repeated later and showed evidence of acute stroke involving left parietal occipital region and left cerebellum. EEG showed moderate encephalopathy. Patient was febrile and infectious disease was consulted. At the time of my evaluation, patient is is resting comfortably in bed and appears to be in no acute distress. Family is at the bedside. Objective - Vital Signs Vital signs: Vital Signs Temp 97.9 F 09/19/16 07:00 Pulse 84 09/19/16 08:00 Resp 20 09/19/16 08:00 BP 168/102 09/19/16 07:00 Pulse Ox 96 09/19/16 07:00 Intake & Output 09/18/16 09/19/16 09/19/16 18:59 06:59 18:59 Output Total 535 Balance -535 Weight 58.4 kg Output: Urine 535 Other: Voiding Method Indwelling Catheter Indwelling Catheter Indwelling Catheter - Exam PHYSICAL EXAM: GENERAL APPEARANCE: Patient is a male who is being seen in the ICU HEENT: Normocephalic, atraumatic, Neck is supple with no masses felt. CARDIOVASCULAR: Regular rate and rhythm. ABDOMEN: Nontender, nondistended. EXTREMITIES: Show no edema or clubbing. NEUROLOGICAL EXAM: Patient withdraws to painful stimuli on bilateral lower extremities. Patient does not follow verbal commands. He does move all 4 extremities. No tremors or seizure-like activity is seen. No obvious facial asymmetry is noted. Unable to perform sensory exam. - Labs CBC & Chem 7: 09/18/16 06:47 09/18/16 06:47 Labs: Abnormal Lab Results - Last 24 Hours (Table) 09/18/16 09/19/16 Range/Units 23:57 05:23 POC Glucose (mg/dL) 117 H 115 H (75-99) mg/dL Microbiology - Last 24 Hours (Table) 09/16/16 14:50 Blood Culture - Preliminary Blood No Growth after 48 hours 09/16/16 13:46 Blood Culture - Preliminary Blood No Growth after 48 hours Assessment and Plan Plan: Impression: 1. Acute ischemic stroke, left middle cerebral artery and left posterior cerebral artery distribution 2. Hypertension 3. Fever 4. Leukocytosis Recommendations: The patient has suffered a major ischemic stroke. Continue IV Decadron for another 24 hours. Continue supportive care. Given the extent of the stroke, patient age, and current neurological exam, I do feel prognosis is poor. I did have a lengthy discussion with the family regarding prognosis. I did explain to them the chance of having a meaningful neurological recovery is low. I agree with planning for possible placement soon. I will continue to follow with you. Further recommendations to follow. I performed an examination of the patient and discussed the management with the FORM DESIGNER. I have reviewed the FORM DESIGNER notes and agree with the findings and plan of care.
[2016-09-19 11:19] LABS: Glucose,Whole Blood 112 mg/dL (75-99)
[2016-09-19] MEDS ORDERED: ATENOLOL 25 MG TAB PO STA (14:14)
[2016-09-19] MEDS: ATORVASTATIN 10 MG TAB PO SCH (14:45)
[2016-09-19] MEDS: LORazepam 2 MG/ML SYRINGE IV PRN (14:56)
[2016-09-19 17:56] LABS: Glucose,Whole Blood 116 mg/dL (75-99)
--- NOTE | 2016-09-19 19:19 | PN ---
INTERVAL HISTORY: Patient continues to be hemodynamically stable yesterday. Family yesterday noticed some improvement in the mental status where the patient was slightly following commands, but this morning the patient has completely obtunded response to pain stimuli, only with weak gag reflex. Patient is moving extremities spontaneously and withdraws to pain only. PHYSICAL EXAMINATION: VITAL SIGNS: Reviewed and stable. Blood pressure is a little bit on the higher side with systolic being in the 160. GENERAL: In his stated age, obtunded, not following commands. NG tube in place, tolerating tube feeding at this point. SKIN: No new rash. NEUROLOGICAL: Exam as above. ABDOMEN: Soft, no tenderness. Positive bowel sounds in all four quadrants. EXTREMITIES: Lower extremity no edema. IMAGING AND LABS: Blood cultures are pending, negative. Glucose is fluctuating between 93 and 117. ASSESSMENT AND PLAN: 1. Acute evolving stroke in the left cerebral region. 2. Acute encephalopathy secondary to the above. 3. Questionable aspiration pneumonia. 4. Hypertension. 5. Hyperlipidemia. PLAN: I had a long discussion today with the family and we decided to proceed with the tube feedings through NG tube at this point. Continue with current management. Patient continues to be DNR and I would like to give the patient another 24 hours to see if there is any improvement. If no improvement, we will consider weaning the patient off medication and consider comfort measures only. , daughter, son and granddaughter were all at the bedside and they agreed to the current treatment plan. Will follow up with the patient closely over the next 24 hours.
[2016-09-19] MEDS: hydrALAZINE HCL 20 MG/ML 1 ML VIAL IVP PRN (21:19)
[2016-09-20 00:14] LABS: Glucose,Whole Blood 107 mg/dL (75-99)
[2016-09-20] MEDS: INSULIN LISPRO (humaLOG) 300 UNIT/3 ML VIAL SQ SCH ×5 (00:28→23:52)
[2016-09-20] MEDS: SODIUM CHLORIDE 0.9% 1,000 ML IV SCH ×3 (01:24→21:11)
[2016-09-20] MEDS: AMPICILLIN-SULBACTAM 3 GM in SODIUM CHLORIDE 0.9% 100 ML IVPB SCH ×6 (05:42→23:31)
[2016-09-20] MEDS: DEXAMETHASONE SOD PHOSPHATE 4 MG/ML 1 ML VIAL IV SCH ×3 (05:48→11:52)
[2016-09-20 05:58] LABS: Glucose,Whole Blood 110 mg/dL (75-99)
[2016-09-20] MEDS: ASPIRIN 81 MG CHEW PO SCH (07:55)
[2016-09-20] MEDS: ENOXAPARIN 40 MG/0.4 ML SYRINGE SQ SCH (07:55)
[2016-09-20] MEDS: ATENOLOL 25 MG TAB PO SCH (07:56)
[2016-09-20] MEDS: FAMOTIDINE 20 MG/2 ML VIAL IV SCH ×2 (07:56→21:10)
[2016-09-20 12:10] LABS: Glucose,Whole Blood 110 mg/dL (75-99)
--- NOTE | 2016-09-20 12:19 | P.PN ---
Subjective Principal diagnosis: Patient is an 85-year-old male who is being followed by the neurology service for stroke. Patient was brought to the emergency room after he had collapsed in the grocery store. CT of the brain initially showed no acute findings and was repeated later and showed evidence of acute stroke involving left parietal occipital region and left cerebellum. EEG showed moderate encephalopathy. Patient was placed on Decadron IV every 6 hours with little improvement. Patient continues to be unresponsive. At the time of my evaluation, patient is is resting comfortably in bed and appears to be in no acute distress. Family is at the bedside. Objective - Vital Signs Vital signs: Vital Signs Temp 97.8 F 09/20/16 07:00 Pulse 83 09/20/16 08:00 Resp 20 09/20/16 08:00 BP 170/83 09/20/16 07:00 Pulse Ox 93 L 09/20/16 07:00 Intake & Output 09/19/16 09/20/16 09/20/16 18:59 06:59 18:59 Output Total 1450 525 Balance -1450 -525 Output: Urine 1450 525 Uretheral (Dela Cruz) 1450 Other: Voiding Method Indwelling Catheter Indwelling Catheter Indwelling Catheter - Exam PHYSICAL EXAM: GENERAL APPEARANCE: Patient is a male who is being seen in the ICU HEENT: Normocephalic, atraumatic, Neck is supple with no masses felt. CARDIOVASCULAR: Regular rate and rhythm. ABDOMEN: Nontender, nondistended. EXTREMITIES: Show no edema or clubbing. NEUROLOGICAL EXAM: Patient withdraws to painful stimuli on bilateral lower extremities. Patient does not follow verbal commands. He does move all 4 extremities. No tremors or seizure-like activity is seen. No obvious facial asymmetry is noted. Unable to perform sensory exam. - Labs CBC & Chem 7: 09/18/16 06:47 09/18/16 06:47 Labs: Abnormal Lab Results - Last 24 Hours (Table) 09/19/16 09/20/16 09/20/16 Range/Units 17:50 00:07 05:56 POC Glucose (mg/dL) 116 H 107 H 110 H (75-99) mg/dL 09/20/16 Range/Units 12:07 POC Glucose (mg/dL) 110 H (75-99) mg/dL Microbiology - Last 24 Hours (Table) 09/16/16 14:50 Blood Culture - Preliminary Blood No Growth after 72 hours 09/16/16 13:46 Blood Culture - Preliminary Blood No Growth after 72 hours Assessment and Plan Plan: Impression: 1. Acute ischemic stroke, left middle cerebral artery and left posterior cerebral artery distribution 2. Hypertension 3. Fever 4. Leukocytosis Recommendations: The patient has suffered a major ischemic stroke. I will discontinue IV Decadron. Continue supportive care. Given the extent of the stroke, patient age, and current neurological exam, I do feel prognosis is poor. I did have a lengthy discussion with the family regarding prognosis. I did explain to them the chance of having a meaningful neurological recovery is low. I agree with comfort care and planning for hospice or possible placement soon. I will continue to follow with you on an as-needed basis. Feel free to call with any questions or concerns. I performed an examination of the patient and discussed the management with the INSTRUMENT PANEL ASSEMBLER. I have reviewed the INSTRUMENT PANEL ASSEMBLER notes and agree with the findings and plan of care.
[2016-09-20 17:45] LABS: Glucose,Whole Blood 93 mg/dL (75-99)
--- NOTE | 2016-09-20 22:45 | PN ---
INTERVAL HISTORY: The patient continued to be unresponsive. at the bedside. Denied any response from the patient in the last 24 hours. The patient still tolerating tube feedings through his NG tube without any major events by nursing staff. PHYSICAL EXAMINATION: Vital signs reviewed and stable. LUNGS: Clear to auscultation bilaterally. HEART: S1, S2. ABDOMEN: Soft, nontender. Positive bowel sounds in all 4 quadrants. NECK: Positive for NG tube in place. NEUROLOGICAL: Exam no gag reflex. The patient still withdrawal to pain in all 4 extremities. Patient still completely unresponsive. SKIN: No new rash. Imaging and labs reviewed. ASSESSMENT AND PLAN: 1. 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 2. Acute ( ) secondary to the above. 3. ( ) aspiration pneumonia. 4. Hypertension. 5. Hyperlipidemia. PLAN: I had a long discussion with the again today where she would like to ( ) comfort measures. ( ) would like to discuss with her two daughters and if she agreed she would like to proceed with that after calling her 3 sons who live all out of state and she would like to get everybody here before she makes that decision. I offered the patient Hospice care but said that she would like to wait another 24 hours before she calls for hospice evaluation. Prognosis is poor.
[2016-09-20 23:44] LABS: Glucose,Whole Blood 106 mg/dL (75-99)
[2016-09-21] MEDS: cefTRIAXone 2,000 MG in SODIUM CHLORIDE 0.9% 100 ML IVPB SCH (02:33)
[2016-09-21] MEDS: VANCOMYCIN 1,250 MG in SODIUM CHLORIDE 0.9% 250 ML IVPB SCH (02:34)
[2016-09-21] MEDS: AMPICILLIN-SULBACTAM 3 GM in SODIUM CHLORIDE 0.9% 100 ML IVPB SCH ×4 (05:23→23:17)
[2016-09-21] MEDS: INSULIN LISPRO (humaLOG) 300 UNIT/3 ML VIAL SQ SCH ×3 (05:33→18:04)
[2016-09-21 05:40] LABS: Glucose,Whole Blood 91 mg/dL (75-99)
[2016-09-21] MEDS: ENOXAPARIN 40 MG/0.4 ML SYRINGE SQ SCH (08:22)
[2016-09-21] MEDS: FAMOTIDINE 20 MG/2 ML VIAL IV SCH ×2 (08:22→20:26)
[2016-09-21 11:37] LABS: Glucose,Whole Blood 86 mg/dL (75-99)
[2016-09-21] MEDS: SODIUM CHLORIDE 0.9% 1,000 ML IV SCH ×2 (12:30→20:08)
[2016-09-21] MEDS: ATENOLOL 25 MG TAB PO SCH (12:33)
[2016-09-21] MEDS: ASPIRIN 81 MG CHEW PO SCH (12:33)
[2016-09-21] MEDS: ATORVASTATIN 10 MG TAB PO SCH (13:40)
--- NOTE | 2016-09-21 14:34 | P.PN ---
Subjective This is an 85-year-old male. His primary care physician is Dr. Puma Velazquez. He has a known past medical history of hypertension and hyperlipidemia. No information is able to be obtained from the patient and no family is available. According to the ER notes, patient was at home but had been shopping earlier at [facility] and EMS was called due to a syncopal episode. When EMS arrived the patient was alert and oriented but enroute to the hospital he became unresponsive. Initially in the emergency center, he was lethargic but arousable and able to move all 4 extremities and answer very basic questions. He denied headache, chest pain, palpitations, shortness of breath, fever, abdominal pain, nausea, vomiting, diarrhea, dysuria, trauma. In the emergency center, patient was afebrile. Blood pressure was elevated at 202/95. Pulse ox was 97% on 2 L. Initial leukocytosis at 13.7, d-dimer 3.67, potassium 5.3 and CO2 20, GFR greater than 60, blood sugar 140. Troponin normal. Urinalysis was clear nitrate and leukoesterase negative. Urine drug screen was negative. CAT scan of the brain showed moderate cerebral atrophy and chronic small vessel ischemia with no acute abnormality. Chest x-ray shows extensive calcified pleural plaque. No acute lung disease. No heart failure. Patient was admitted to the intensive care unit as an overflow for selective care. He has subsequently developed a temperature max of 102.5. He has minimal response to sternal rub. Repeat troponin of 0.032. Influenza testing A and B negative. Carotid Doppler shows moderate to severe atherosclerotic changes bilaterally without hemodynamically significant stenosis. CTA of the chest showed no evidence of acute pulmonary embolism. Mild infiltrates and atelectatic changes in both lung bases worse on the right, possible asbestos exposure, fluid distended esophagus and possibility of inflammatory process of the esophagus not excluded. Ultrasound venous Doppler duplex of the bilateral lower extremities was negative for DVT. Echocardiogram reveals mild aortic stenosis, mild mitral regurgitation, mild tricuspid regurgitation, mild concentric left ventricular hypertrophy, EF 55-60%. Repeat CAT scan of the brain shows new cortical and subcortical hypodensity at the left parietal occipital junction and extensive hypodensity in the left cerebral hemisphere suggestive of evolving acute infarcts. Dr. Rendon was initially called for agnostic lumbar puncture but because he has received Lovenox subcu, lumbar puncture was not completed. Subsequently the CAT scan revealed numerous evolving strokes and consult with Dr. Dr. Rendon and lumbar puncture orders canceled. Patient has been started on ceftriaxone and ampicillin and vancomycin. Consults currently in place with Dr. Romo, Dr. Freeman, Dr. Kwok and Dr. Shultz. PT, OT, speech therapy all in place. 09/17: Patient's mental status is unchanged. Patient will be transferred selective care today. He is on Ativan for agitation. 09/18: Patient has continued to be unresponsive but this afternoon with minimal response. He is followed by neurology and on IV Decadron. Family may consider hospice care. EEG is abnormal due to presence of generalized slowing of the background rhythm consistent with moderate encephalopathy. Cardiology is following on an as-needed basis. 09/21: Discussed and detail patient's prognosis with patient's and 2 sounds. They may be leaning towards comfort care/hospice but are waiting for other family members to arrive. Patient pulled out his NG tube. Decadron has been discontinued. Objective - Vital Signs Vital signs: Vital Signs Temp 97.8 F 09/21/16 07:00 Pulse 86 09/21/16 07:00 Resp 15 09/21/16 07:00 BP 128/63 09/21/16 07:00 Pulse Ox 100 09/21/16 07:00 Intake & Output 09/20/16 09/21/16 09/21/16 18:59 06:59 18:59 Output Total 675 700 Balance -675 -700 Weight 58.4 kg Output: Urine 675 700 Uretheral (Dela Cruz) 150 700 Other: Voiding Method Indwelling Catheter Indwelling Catheter Indwelling Catheter - Exam Gen: This is an 85-year-old male. He is seen in the MedSurg unit. HEENT: Head is atraumatic, normocephalic. Pupils equal, round. Sclerae is anicteric. Conjunctiva pink. NECK: Supple. No JVD. No lymphadenopathy. No thyromegaly. LUNGS: Snoring respirations. Clear to auscultation. No wheezes or rhonchi. No intercostal retractions. HEART: Regular rate and rhythm. No murmur. ABDOMEN: Soft. Bowel sounds are present. No masses. No tenderness. EXTREMITIES: No pedal edema. No calf tenderness. NEUROLOGICAL: Patient withdraws from painful stimuli. Patient unable to follow any verbal commands. He does appear to move all 4 extremities. - Labs CBC & Chem 7: 09/18/16 06:47 09/18/16 06:47 Labs: Abnormal Lab Results - Last 24 Hours (Table) 09/20/16 Range/Units 23:42 POC Glucose (mg/dL) 106 H (75-99) mg/dL Microbiology - Last 24 Hours (Table) 09/16/16 14:50 Blood Culture - Preliminary Blood No Growth after 96 hours 09/16/16 13:46 Blood Culture - Preliminary Blood No Growth after 96 hours Assessment and Plan Plan: 1. Acute evolving stroke in the left middle cerebral artery and left posterior cerebral artery distribution. Consult with neurology. EEG as above. Continue neuro checks. PT OT and speech therapy are on consult. Decadron discontinued. Continue aspirin and Lovenox. 2. Possible aspiration pneumonia found on repeat chest x-ray. There is mild infiltrate and atelectatic changes. Continue Unasyn per Dr. Kwok. 3. Syncopal episode at home. Cardiology is on consult. Echocardiogram as above. 4. Hypertension. Hydralazine as needed. 5. Hyperlipidemia. 6. Gastrointestinal prophylaxis. Continue Pepcid 20 mg IV every 12 hours.. 7. DVT prophylaxis. Patient on Lovenox. 8. CODE STATUS: No code. 9. Prognosis poor. Family is considering him for care/hospice care. Discharge plan: To be determined Impression and plan of care have been directed as dictated by the signing physician. Robyn Cai nurse practitioner acting as scribe for signing physician. Time with Patient: Greater than 30
[2016-09-21 17:27] LABS: Glucose,Whole Blood 78 mg/dL (75-99)
[2016-09-21] MEDS: LORazepam 2 MG/ML SYRINGE IV PRN (17:57)
--- NOTE | 2016-09-21 19:37 | P.PN ---
Subjective Principal diagnosis: Fever This is an 85-year-old male. He has a known past medical history of hypertension and hyperlipidemia. No information is able to be obtained from the patient and no family is available. According to the ER notes, patient was at home but had been shopping earlier at [facility] and EMS was called due to a syncopal episode. When EMS arrived the patient was alert and oriented but enroute to the hospital he became unresponsive. Initially in the emergency center, he was lethargic but arousable and able to move all 4 extremities and answer very basic questions. He denied headache, chest pain, palpitations, shortness of breath, fever, abdominal pain, nausea, vomiting, diarrhea, dysuria , trauma. In the emergency center, patient was afebrile. Blood pressure was elevated at 202/95. Pulse ox was 97% on 2 L. Initial leukocytosis at 13.7, d- dimer 3.67, potassium 5.3 and CO2 20, GFR greater than 60, blood sugar 140. Troponin normal. Urinalysis was clear nitrate and leukoesterase negative. Urine drug screen was negative. CAT scan of the brain showed moderate cerebral atrophy and chronic small vessel ischemia with no acute abnormality. Chest x- ray shows extensive calcified pleural plaque. No acute lung disease. No heart failure. Patient was admitted to the intensive care unit as an overflow for selective care. He has subsequently developed a temperature max of 102.5. He has minimal response to sternal rub. Repeat troponin of 0.032. Influenza testing A and B negative. Albumin 4.8 Carotid Doppler shows moderate to severe atherosclerotic changes bilaterally without hemodynamically significant stenosis. CTA of the chest showed no evidence of acute pulmonary embolism. Mild infiltrates and atelectatic changes in both lung bases worse on the right, possible asbestos exposure, fluid distended esophagus and possibility of inflammatory process of the esophagus not excluded. Ultrasound venous Doppler duplex of the bilateral lower extremities was negative for DVT. Echocardiogram reveals mild aortic stenosis, mild mitral regurgitation, mild tricuspid regurgitation, mild concentric left ventricular hypertrophy, EF 55-60%. Repeat CAT scan of the brain shows new cortical and subcortical hypodensity at the left parietal occipital junction and extensive hypodensity in the left cerebral hemisphere suggestive of evolving acute infarcts. Dr. Rendon was initially called for agnostic lumbar puncture but because he has received Lovenox subcu, lumbar puncture was not completed. Subsequently the CAT scan revealed numerous evolving strokes Patient has had no improvement of his status. Family is in the midst of determining the overall course The NG tube that was placed has now been self removed by the patient, unknowingly Objective - Vital Signs Vital signs: Vital Signs Temp 87.5 F L 09/21/16 15:00 Pulse 78 09/21/16 15:00 Resp 15 09/21/16 15:00 BP 130/97 09/21/16 15:00 Pulse Ox 95 09/21/16 15:00 Intake & Output 09/21/16 09/21/16 09/22/16 06:59 18:59 06:59 Intake Total 1200 Output Total 700 1900 Balance -700 -700 Weight 58.4 kg Intake: IV 1200 Sodium Chloride 0.9% 1, 1200 000 ml @ 100 mls/hr IV . Q10H MARISELA Rx#:[id number] Output: Urine 700 1900 Uretheral (Dela Cruz) 700 Other: Voiding Method Indwelling Catheter Indwelling Catheter - Exam Gen: This is an 85-year-old male. HEENT: Head is atraumatic, normocephalic. Pupils equal, round. Sclerae is anicteric. Conjunctiva pink. NECK: Supple. No JVD. No lymphadenopathy. No thyromegaly. LUNGS: respiratory pattern is improved. He has crackles at the right base which are new HEART: Regular rate and rhythm. No murmur. ABDOMEN: Soft. Bowel sounds are present. No masses. No tenderness. EXTREMITIES: No pedal edema. No calf tenderness. NEUROLOGICAL: Patient is obtunded - Labs CBC & Chem 7: 09/18/16 06:47 09/18/16 06:47 Labs: Abnormal Lab Results - Last 24 Hours (Table) 09/20/16 Range/Units 23:42 POC Glucose (mg/dL) 106 H (75-99) mg/dL Microbiology - Last 24 Hours (Table) 09/16/16 14:50 Blood Culture - Preliminary Blood No Growth after 120 hours 09/16/16 13:46 Blood Culture - Preliminary Blood No Growth after 120 hours Laboratory Results WBC 14.7 k/uL (3.8-10.6) H 09/18/16 06:47 RBC 5.10 m/uL (4.30-5.90) 09/18/16 06:47 Hgb 16.4 gm/dL (13.0-17.5) 09/18/16 06:47 Hct 51.4 % (39.0-53.0) 09/18/16 06:47 MCV 100.6 fL (80.0-100.0) H 09/18/16 06:47 MCH 32.2 pg (25.0-35.0) 09/18/16 06:47 MCHC 32.0 g/dL (31.0-37.0) 09/18/16 06:47 RDW 13.1 % (11.5-15.5) 09/18/16 06:47 Plt Count 152 k/uL (150-450) 09/18/16 06:47 Neutrophils % 89 % 09/18/16 06:47 Lymphocytes % 6 % 09/18/16 06:47 Monocytes % 4 % 09/18/16 06:47 Eosinophils % 0 % 09/18/16 06:47 Basophils % 0 % 09/18/16 06:47 Neutrophils # 13.1 k/uL (1.3-7.7) H 09/18/16 06:47 Lymphocytes # 0.8 k/uL (1.0-4.8) L 09/18/16 06:47 Monocytes # 0.6 k/uL (0-1.0) 09/18/16 06:47 Eosinophils # 0.1 k/uL (0-0.7) 09/18/16 06:47 Basophils # 0.0 k/uL (0-0.2) 09/18/16 06:47 Macrocytosis Slight 09/15/16 19:56 PT 11.1 sec (9.0-12.0) 09/15/16 21:53 INR 1.1 (<1.1) 09/15/16 21:53 APTT 23.8 sec (22.0-30.0) 09/15/16 21:53 D-Dimer 3.67 mg/L FEU (<0.60) H 09/15/16 21:53 [facility] 09/16/16 09:45 ABG pH 7.47 (7.35-7.45) H 09/16/16 09:45 ABG pCO2 30 mmHg (35-45) L 09/16/16 09:45 ABG pO2 79 mmHg (83-108) L 09/16/16 09:45 ABG HCO3 22 mmol/L (21-25) 09/16/16 09:45 ABG Total CO2 22 mmol/L (19-24) 09/16/16 09:45 ABG O2 Saturation 97.0 % (94-97) 09/16/16 09:45 ABG Base Excess -2.0 mmol/L 09/16/16 09:45 FiO2 36 % 09/16/16 09:45 Sodium 139 mmol/L (137-145) 09/18/16 06:47 Potassium 4.2 mmol/L (3.5-5.1) 09/18/16 06:47 Chloride 106 mmol/L (98-107) 09/18/16 06:47 Carbon Dioxide 24 mmol/L (22-30) 09/18/16 06:47 Anion Gap 9 mmol/L 09/18/16 06:47 BUN 16 mg/dL (9-20) 09/18/16 06:47 Creatinine 0.63 mg/dL (0.66-1.25) L 09/18/16 06:47 Est GFR (MDRD) Af Amer >60 (>60 ml/min/1.73 sqM) 09/18/16 06:47 Est GFR (MDRD) Non-Af >60 (>60 ml/min/1.73 sqM) 09/18/16 06:47 Glucose 111 mg/dL (74-99) H 09/18/16 06:47 POC Glucose (mg/dL) 78 mg/dL (75-99) 09/21/16 17:24 POC Glu Fixture Repairer Fabricator ID 09/21/16 17:[address] Glu mg/dL 114 mg/dL 09/16/16 14:50 Hemoglobin A1c 5.6 % (4.2-6.1) 09/16/16 14:50 Calcium 8.4 mg/dL (8.4-10.2) 09/18/16 06:47 Phosphorus 3.4 mg/dL (2.5-4.5) 09/18/16 06:47 Magnesium 1.8 mg/dL (1.6-2.3) 09/18/16 06:47 Total Bilirubin 0.9 mg/dL (0.2-1.3) 09/15/16 19:56 AST 39 U/L (17-59) 09/15/16 19:56 ALT 18 U/L (21-72) L 09/15/16 19:56 Alkaline Phosphatase 106 U/L (38-126) 09/15/16 19:56 Total Creatine Kinase 88 U/L (55-170) 09/15/16 19:56 CK-MB (CK-2) 2.3 ng/mL (0.0-2.4) 09/15/16 19:56 CK-MB (CK-2) Rel Index 2.6 09/15/16 19:56 Troponin I 0.032 ng/mL (0.000-0.034) 09/16/16 08:44 Total Protein 8.7 g/dL (6.3-8.2) H 09/15/16 19:56 Albumin 4.8 g/dL (3.5-5.0) 09/15/16 19:56 Triglycerides 55 mg/dL (<150) 09/16/16 04:30 Cholesterol 155 mg/dL (<200) 09/16/16 04:30 LDL Cholesterol, Calc 90 mg/dL (0-99) 09/16/16 04:30 HDL Cholesterol 54 mg/dL (40-60) 09/16/16 04:30 Urine Color Yellow 09/15/16 19:56 Urine Appearance Clear (Clear) 09/15/16 19:56 Urine pH 5.5 (5.0-8.0) 09/15/16 19:56 Ur Specific [place] 1.020 (1.001-1.035) 09/15/16 19:56 Urine Protein 1+ (Negative) H 09/15/16 19:56 Urine Glucose (UA) Negative (Negative) 09/15/16 19:56 Urine Ketones 1+ (Negative) H 09/15/16 19:56 Urine Blood Negative (Negative) 09/15/16 19:56 Urine Nitrate Negative (Negative) 09/15/16 19:56 Urine Bilirubin Negative (Negative) 09/15/16 19:56 Urine Urobilinogen 2.0 mg/dL (<2.0) 09/15/16 19:56 Ur Leukocyte Esterase Negative (Negative) 09/15/16 19:56 Urine RBC 1 /hpf (0-5) 09/15/16 19:56 Urine WBC 1 /hpf (0-5) 09/15/16 19:56 Hyaline Casts 66 /lpf (0-2) H 09/15/16 19:56 Urine Opiates Screen Not Detected (NotDetected) 09/15/16 19:56 Ur Oxycodone Screen Not Detected (NotDetected) 09/15/16 19:56 Urine Methadone Screen Not Detected (NotDetected) 09/15/16 19:56 Ur Propoxyphene Screen Not Detected (NotDetected) 09/15/16 19:56 Ur Barbiturates Screen Not Detected (NotDetected) 09/15/16 19:56 U Tricyclic Antidepress Not Detected (NotDetected) 09/15/16 19:56 Ur Phencyclidine Scrn Not Detected (NotDetected) 09/15/16 19:56 Ur Amphetamines Screen Not Detected (NotDetected) 09/15/16 19:56 U Methamphetamines Scrn Not Detected (NotDetected) 09/15/16 19:56 U Benzodiazepines Scrn Not Detected (NotDetected) 09/15/16 19:56 Urine Cocaine Screen Not Detected (NotDetected) 09/15/16 19:56 U Marijuana (THC) Screen Not Detected (NotDetected) 09/15/16 19:56 EBV Capsid Ag IgG Ab >750.0 U/mL (<18.0) H 09/16/16 04:30 EBV Capsid Ag IgM Ab <10.0 U/mL (<36.0) 09/16/16 04:30 EBV Early Antigen IgG 16.8 U/mL (<9.0) H 09/16/16 04:30 EBV Nuclear Ag IgG Ab 282.0 U/mL (<18.0) H 09/16/16 04:30 Influenza Type A RNA Not Detected (Not Detectd) 09/16/16 10:30 Influenza Type B (PCR) Not Detected (Not Detectd) 09/16/16 10:30 Microbiology 09/16/16 14:50 Blood Blood Culture - Preliminary No Growth after 120 hours 09/16/16 13:46 Blood Blood Culture - Preliminary No Growth after 120 hours 09/16/16 01:32 Urine,Catheterized Urine Culture - Final Assessment and Plan (1) Syncope Status: Acute (2) Fever Narrative/Plan: 85-year-old male presents to Hospital with sudden onset of syncope. Originally there was great concerns to his altered mental status due to his generally excellent functional status. He was shopping at my or just before the event occurred. Data now reveals evidence of an extensive amount of cerebrovascular accident multifocal in nature. This is the etiology of his fever. No other sources of fever been noted. Family is trying to determine overall course of care and likely will go to a comfort care status in the next short period of time. There appears to be aspiration pneumonia being treated with Unasyn. The NG tube that was placed has now been self extricated unknowingly by the patient Status: Acute
[2016-09-21 20:07] LABS: Glucose,Whole Blood 76 mg/dL (75-99)
[2016-09-22 00:12] LABS: Glucose,Whole Blood 78 mg/dL (75-99)
[2016-09-22] MEDS: INSULIN LISPRO (humaLOG) 300 UNIT/3 ML VIAL SQ SCH ×5 (03:55→23:32)
[2016-09-22] MEDS: SODIUM CHLORIDE 0.9% 1,000 ML IV SCH ×3 (05:55→22:21)
[2016-09-22] MEDS: AMPICILLIN-SULBACTAM 3 GM in SODIUM CHLORIDE 0.9% 100 ML IVPB SCH ×4 (05:58→23:32)
[2016-09-22 06:17] LABS: Glucose,Whole Blood 71 mg/dL (75-99)
[2016-09-22] MEDS: LORazepam 2 MG/ML SYRINGE IV PRN (06:17)
[2016-09-22] MEDS: ASPIRIN 81 MG CHEW PO SCH (06:57)
[2016-09-22] MEDS: ATENOLOL 25 MG TAB PO SCH (06:57)
[2016-09-22] MEDS: ENOXAPARIN 40 MG/0.4 ML SYRINGE SQ SCH (07:02)
[2016-09-22] MEDS: FAMOTIDINE 20 MG/2 ML VIAL IV SCH ×2 (07:02→22:21)
--- NOTE | 2016-09-22 10:53 | CDI ---
In responding to this query, please exercise your independent professional judgment. The [facility] Coding Staff and Clinical Documentation Specialists appreciate your assistance in clarifying documentation, maintaining compliance with coding guidelines, accurately documenting patients condition and capturing severity of illness. The fact that a question is asked does not imply that any particular answer is desired or expected. Communication forms are a method of clarifying documentation and are not made part of the Legal Health Record. Thank you in advance for your clarification. Last Revision, October 2015 Tammie Stafford [address] [place] [address] Documentation Clarification Form Date: 09/18/2016 11:11:00 AM From: Dana Schneider Admit Date: 09/15/2016 10:12:00 PM Patient Name: Manny Barbosa Visit Number: [id number] Discharge Date: Dr. Zenobia Romo Acute ischemic stroke is documented as a diagnosis in your consult and progress notes. CT:09/16/16: New cortical and subcortical hypodensity at the left parieto- occipital junction and extensive hypodensity in the left cerebellar hemisphere. Finding suggest evolving acute infarcts. No significant mass effect or acute intracranial hemorrhage History: Hypertension, Hyperlipidemia, Clinical Indicators: Syncopal episode was alert and oriented but enroute became unresponsive. VS: [id number] Treatment: ICU monitoring Neurovascular check per protocol IV Decadron [place] ([place]) In your professional opinion, please further clarify if the ischemic stroke is due to the following: Cause of Stroke/CVA: Stenosis/Occlusion Embolic Thrombolytic Hypertension Other (please specify) Unable to Determine Laterality: Left (per progress notes) Vessel/Location Involved: Left Middle Cerebral Artery (per progress notes) Left Posterior Cerebral Artery ? Also, indicate any deficits related to the Stroke/CVA in your documentation (such as aphasia, ataxia, cognitive deficits, dysphagia, hemiplegiaetc.) Please document in your progress notes in order to capture severity of illness and risk of mortality. Include clinical findings that support your diagnosis. FYI: Press F11 to launch patient chart Place X here if this finding has no clinical significance, is not applicable or if you are not able to provide any additional documentation. KIM
--- NOTE | 2016-09-22 10:56 | CDI ---
In responding to this query, please exercise your independent professional judgment. The [facility] Coding Staff and Clinical Documentation Specialists appreciate your assistance in clarifying documentation, maintaining compliance with coding guidelines, accurately documenting patients condition and capturing severity of illness. The fact that a question is asked does not imply that any particular answer is desired or expected. Communication forms are a method of clarifying documentation and are not made part of the Legal Health Record. Thank you in advance for your clarification. Last Revision, June 2015 Tammie Stafford [address] [facility] [place] [address] Documentation Clarification Form Date: 09/18/2016 12:04:00 PM From: Dana Schneider Admit Date: 09/15/2016 10:12:00 PM Patient Name: Manny Barbosa Visit Number: [id number] Discharge Date: Dr. Zenobia Juarez diagnosis of unresponsiveness is documented in your progress notes on 09/17/16 Patient history/risk factors: Hypertension, Hyperlipidemia Clinical Indicators: Syncopal episode while out shopping, was alert and oriented but enroute became unresponsive GCS: 7 Gloria agitation sedation scale: -4 Neurological assessment: Patient withdraws to painful stimuli no verbal response Lab findings: WBC 14.7, Ct Brain 09/16/16: new cortical and subcortical hypodensity at the left perieto- occipital junction and extensive hypodensity in the left cerebellar hemisphere. Findings suggest evolving acute infarcts. Vital Signs: In admission: 202/95 68 18 Other Clinical Indicators: Nursing documentation 09/16/16 : when repositioning patient he was noted to be posturing (decorticate) when on left side, this was followed by a period of muscular rigidity Treatment: Monitor Labs Neurovascular checks IV Decadron IV Fluids In your professional opinion, can you please further clarify unresponsiveness? Due to: Vasogenic Cerebral edema Coma Other (specified cause of unresponsiveness) Unable to determine Please document in your progress notes in order to capture severity of illness and risk of mortality. Include clinical findings that support your diagnosis. FYI: Press F11 to launch patient chart. Place X here if this finding has no clinical significance, is not applicable or if you are not able to provide any additional documentation. KIM
[2016-09-22 11:18] LABS: Glucose,Whole Blood 73 mg/dL (75-99)
--- NOTE | 2016-09-22 15:53 | P.PN ---
Subjective This is an 85-year-old male. His primary care physician is Dr. Puma Velzaquez. He has a known past medical history of hypertension and hyperlipidemia. No information is able to be obtained from the patient and no family is available. According to the ER notes, patient was at home but had been shopping earlier at [facility] and EMS was called due to a syncopal episode. When EMS arrived the patient was alert and oriented but enroute to the hospital he became unresponsive. Initially in the emergency center, he was lethargic but arousable and able to move all 4 extremities and answer very basic questions. He denied headache, chest pain, palpitations, shortness of breath, fever, abdominal pain, nausea, vomiting, diarrhea, dysuria, trauma. In the emergency center, patient was afebrile. Blood pressure was elevated at 202/95. Pulse ox was 97% on 2 L. Initial leukocytosis at 13.7, d-dimer 3.67, potassium 5.3 and CO2 20, GFR greater than 60, blood sugar 140. Troponin normal. Urinalysis was clear nitrate and leukoesterase negative. Urine drug screen was negative. CAT scan of the brain showed moderate cerebral atrophy and chronic small vessel ischemia with no acute abnormality. Chest x-ray shows extensive calcified pleural plaque. No acute lung disease. No heart failure. Patient was admitted to the intensive care unit as an overflow for selective care. He has subsequently developed a temperature max of 102.5. He has minimal response to sternal rub. Repeat troponin of 0.032. Influenza testing A and B negative. Carotid Doppler shows moderate to severe atherosclerotic changes bilaterally without hemodynamically significant stenosis. CTA of the chest showed no evidence of acute pulmonary embolism. Mild infiltrates and atelectatic changes in both lung bases worse on the right, possible asbestos exposure, fluid distended esophagus and possibility of inflammatory process of the esophagus not excluded. Ultrasound venous Doppler duplex of the bilateral lower extremities was negative for DVT. Echocardiogram reveals mild aortic stenosis, mild mitral regurgitation, mild tricuspid regurgitation, mild concentric left ventricular hypertrophy, EF 55-60%. Repeat CAT scan of the brain shows new cortical and subcortical hypodensity at the left parietal occipital junction and extensive hypodensity in the left cerebral hemisphere suggestive of evolving acute infarcts. Dr. Rendon was initially called for agnostic lumbar puncture but because he has received Lovenox subcu, lumbar puncture was not completed. Subsequently the CAT scan revealed numerous evolving strokes and consult with Dr. Dr. Rendon and lumbar puncture orders canceled. Patient has been started on ceftriaxone and ampicillin and vancomycin. Consults currently in place with Dr. Romo, Dr. Freeman, Dr. Kwok and Dr. Shultz. PT, OT, speech therapy all in place. 09/17: Patient's mental status is unchanged. Patient will be transferred selective care today. He is on Ativan for agitation. 09/18: Patient has continued to be unresponsive but this afternoon with minimal response. He is followed by neurology and on IV Decadron. Family may consider hospice care. EEG is abnormal due to presence of generalized slowing of the background rhythm consistent with moderate encephalopathy. Cardiology is following on an as-needed basis. 09/21: Discussed and detail patient's prognosis with patient's and 2 sounds. They may be leaning towards comfort care/hospice but are waiting for other family members to arrive. Patient pulled out his NG tube. Decadron has been discontinued. 09/22: Patient condition remains unchanged. He did pull out his NG tube yesterday and family has decided on no aggressive treatment such as PEG tube placement. Long discussion again today with family regarding comfort care. They are agreeable and willing to transfer patient to [facility] tomorrow. Objective - Vital Signs Vital signs: Vital Signs Temp 98.3 F 09/22/16 07:00 Pulse 77 09/22/16 08:00 Resp 20 09/22/16 08:00 BP 149/86 09/22/16 07:00 Pulse Ox 92 L 09/22/16 07:00 Intake & Output 09/21/16 09/22/16 09/22/16 18:59 06:59 18:59 Intake Total 1200 Output Total 1900 800 Balance -700 -800 Weight 58.4 kg 58.4 kg 63 kg Intake: IV 1200 Sodium Chloride 0.9% 1, 1200 000 ml @ 100 mls/hr IV . Q10H [facility] Rx#:[id number] Output: Urine 1900 800 Other: Voiding Method Indwelling Catheter Indwelling Catheter Indwelling Catheter - Exam Gen: This is an 85-year-old male. He is seen in the MedSurg unit. HEENT: Head is atraumatic, normocephalic. Pupils equal, round. Sclerae is anicteric. Conjunctiva pink. NECK: Supple. No JVD. No lymphadenopathy. No thyromegaly. LUNGS: Snoring respirations. Clear to auscultation. No wheezes or rhonchi. No intercostal retractions. HEART: Regular rate and rhythm. No murmur. ABDOMEN: Soft. Bowel sounds are present. No masses. No tenderness. EXTREMITIES: No pedal edema. No calf tenderness. NEUROLOGICAL: Patient withdraws from painful stimuli. Patient unable to follow any verbal commands. He does appear to move all 4 extremities. - Labs CBC & Chem 7: 09/18/16 06:47 09/18/16 06:47 Labs: Abnormal Lab Results - Last 24 Hours (Table) 09/22/16 09/22/16 Range/Units 06:15 11:13 POC Glucose (mg/dL) 71 L 73 L (75-99) mg/dL Microbiology - Last 24 Hours (Table) 09/16/16 14:50 Blood Culture - Preliminary Blood No Growth after 120 hours 09/16/16 13:46 Blood Culture - Preliminary Blood No Growth after 120 hours Assessment and Plan Plan: 1. Acute evolving stroke in the left middle cerebral artery and left posterior cerebral artery distribution. Consult with neurology. EEG as above. Continue neuro checks. PT OT and speech therapy are on consult. Decadron discontinued. Continue aspirin and Lovenox. 2. Possible aspiration pneumonia found on repeat chest x-ray. There is mild infiltrate and atelectatic changes. Continue Unasyn per Dr. Kwok. 3. Syncopal episode at home. Cardiology is on consult. Echocardiogram as above. 4. Hypertension. Hydralazine as needed. 5. Hyperlipidemia. 6. Gastrointestinal prophylaxis. Continue Pepcid 20 mg IV every 12 hours.. 7. DVT prophylaxis. Patient on Lovenox. 8. CODE STATUS: No code. 9. Prognosis poor. Family is considering him for care/hospice care. Discharge plan: [facility] Impression and plan of care have been directed as dictated by the signing physician. Robyn Cai nurse practitioner acting as scribe for signing physician. Time with Patient: Greater than 30
[2016-09-22 17:56] LABS: Glucose,Whole Blood 72 mg/dL (75-99)
--- NOTE | 2016-09-22 20:30 | P.PN ---
Subjective Principal diagnosis: Fever This is an 85-year-old male. He has a known past medical history of hypertension and hyperlipidemia. No information is able to be obtained from the patient and no family is available. According to the ER notes, patient was at home but had been shopping earlier at [facility] and EMS was called due to a syncopal episode. When EMS arrived the patient was alert and oriented but enroute to the hospital he became unresponsive. Initially in the emergency center, he was lethargic but arousable and able to move all 4 extremities and answer very basic questions. He denied headache, chest pain, palpitations, shortness of breath, fever, abdominal pain, nausea, vomiting, diarrhea, dysuria , trauma. In the emergency center, patient was afebrile. Blood pressure was elevated at 202/95. Pulse ox was 97% on 2 L. Initial leukocytosis at 13.7, d- dimer 3.67, potassium 5.3 and CO2 20, GFR greater than 60, blood sugar 140. Troponin normal. Urinalysis was clear nitrate and leukoesterase negative. Urine drug screen was negative. CAT scan of the brain showed moderate cerebral atrophy and chronic small vessel ischemia with no acute abnormality. Chest x- ray shows extensive calcified pleural plaque. No acute lung disease. No heart failure. Patient was admitted to the intensive care unit as an overflow for selective care. He has subsequently developed a temperature max of 102.5. He has minimal response to sternal rub. Repeat troponin of 0.032. Influenza testing A and B negative. Albumin 4.8 Carotid Doppler shows moderate to severe atherosclerotic changes bilaterally without hemodynamically significant stenosis. CTA of the chest showed no evidence of acute pulmonary embolism. Mild infiltrates and atelectatic changes in both lung bases worse on the right, possible asbestos exposure, fluid distended esophagus and possibility of inflammatory process of the esophagus not excluded. Ultrasound venous Doppler duplex of the bilateral lower extremities was negative for DVT. Echocardiogram reveals mild aortic stenosis, mild mitral regurgitation, mild tricuspid regurgitation, mild concentric left ventricular hypertrophy, EF 55-60%. Repeat CAT scan of the brain shows new cortical and subcortical hypodensity at the left parietal occipital junction and extensive hypodensity in the left cerebral hemisphere suggestive of evolving acute infarcts. Dr. Rendon was initially called for agnostic lumbar puncture but because he has received Lovenox subcu, lumbar puncture was not completed. Subsequently the CAT scan revealed numerous evolving strokes Patient has had no improvement of his status. Family is in the midst of determining the overall course The NG tube that was placed has now been self removed by the patient, unknowingly Objective - Vital Signs Vital signs: Vital Signs Temp 98.2 F 09/22/16 14:56 Pulse 77 09/22/16 16:00 Resp 20 09/22/16 16:00 BP 144/87 09/22/16 14:56 Pulse Ox 92 L 09/22/16 07:00 Intake & Output 09/22/16 09/22/16 09/23/16 06:59 18:59 06:59 Intake Total 0 Output Total 800 900 Balance -800 -900 Weight 58.4 kg 63 kg Intake: Oral 0 Output: Urine 800 900 Uretheral (Dela Cruz) 900 Other: Voiding Method Indwelling Catheter Indwelling Catheter - Exam Gen: This is an 85-year-old male. HEENT: Head is atraumatic, normocephalic. Pupils equal, round. Sclerae is anicteric. Conjunctiva pink. NECK: Supple. No JVD. No lymphadenopathy. No thyromegaly. LUNGS: respiratory pattern is improved. He has crackles at the right base which are new HEART: Regular rate and rhythm. No murmur. ABDOMEN: Soft. Bowel sounds are present. No masses. No tenderness. EXTREMITIES: No pedal edema. No calf tenderness. NEUROLOGICAL: Patient is obtunded - Labs CBC & Chem 7: 09/18/16 06:47 09/18/16 06:47 Labs: Abnormal Lab Results - Last 24 Hours (Table) 09/22/16 09/22/16 09/22/16 Range/Units 06:15 11:13 17:53 POC Glucose (mg/dL) 71 L 73 L 72 L (75-99) mg/dL Microbiology - Last 24 Hours (Table) 09/16/16 14:50 Blood Culture - Final Blood No Growth after 144 hours 09/16/16 13:46 Blood Culture - Final Blood No Growth after 144 hours Assessment and Plan (1) Syncope Status: Acute (2) Fever Narrative/Plan: 85-year-old male presents to Hospital with sudden onset of syncope. Originally there was great concerns to his altered mental status due to his generally excellent functional status. He was shopping at my or just before the event occurred. Data now reveals evidence of an extensive amount of cerebrovascular accident multifocal in nature. This is the etiology of his fever. No other sources of fever been noted. The family is likely going to place him in a hospice today. There appears to be aspiration pneumonia being treated with Unasyn. The NG tube that was placed has now been self extricated unknowingly by the patient If the patient enters hospice the Unasyn will be discontinued. Status: Acute
[2016-09-22 23:33] LABS: Glucose,Whole Blood 77 mg/dL (75-99)
[2016-09-23] MEDS: LORazepam 2 MG/ML SYRINGE IV PRN (00:33)
[2016-09-23 04:29] VITALS: RESP 18
[2016-09-23] MEDS: AMPICILLIN-SULBACTAM 3 GM in SODIUM CHLORIDE 0.9% 100 ML IVPB SCH ×2 (06:13→11:54)
[2016-09-23] MEDS: INSULIN LISPRO (humaLOG) 300 UNIT/3 ML VIAL SQ SCH (06:15)
[2016-09-23 06:16] LABS: Glucose,Whole Blood 75 mg/dL (75-99)
[2016-09-23 07:46] VITALS: BP 116/70; PULSE 90; TEMP 98.2
[2016-09-23] MEDS: ATENOLOL 25 MG TAB PO SCH (09:21)
[2016-09-23] MEDS: ASPIRIN 81 MG CHEW PO SCH (09:21)
[2016-09-23] MEDS: FAMOTIDINE 20 MG/2 ML VIAL IV SCH (09:23)
[2016-09-23] MEDS: ENOXAPARIN 40 MG/0.4 ML SYRINGE SQ SCH (09:23)
[2016-09-23] MEDS: SODIUM CHLORIDE 0.9% 1,000 ML IV SCH (09:25)
--- NOTE | 2016-09-23 10:47 | P.DS ---
Providers Date of admission: 09/15/16 22:12 Expected date of discharge: 09/23/16 Attending physician: Julieta Moran Consults: 09/15/16 22:36 Consult Physician Urgent Consulting Provider: Nik Uribe Consult Reason/Comments: syncope Do you want consulting provider notified?: Yes 09/16/16 09:36 Consult Physician Routine Consulting Provider: Fady Kwok Consult Reason/Comments: Abx recommendation, fever, poss pneumonia Do you want consulting provider notified?: Yes 09/16/16 09:37 Consult Physician Routine Consulting Provider: Bobby Shultz Consult Reason/Comments: intensive care managment Do you want consulting provider notified?: Yes Primary care physician: [facility] Course: This is an 85-year-old male. His primary care physician is Dr. Puma Velazquez. He has a known past medical history of hypertension and hyperlipidemia. No information is able to be obtained from the patient and no family is available. According to the ER notes, patient was at home but had been shopping earlier at [facility] and EMS was called due to a syncopal episode. When EMS arrived the patient was alert and oriented but enroute to the hospital he became unresponsive. Initially in the emergency center, he was lethargic but arousable and able to move all 4 extremities and answer very basic questions. He denied headache, chest pain, palpitations, shortness of breath, fever, abdominal pain, nausea, vomiting, diarrhea, dysuria, trauma. In the emergency center, patient was afebrile. Blood pressure was elevated at 202/95. Pulse ox was 97% on 2 L. Initial leukocytosis at 13.7, d-dimer 3.67, potassium 5.3 and CO2 20, GFR greater than 60, blood sugar 140. Troponin normal. Urinalysis was clear nitrate and leukoesterase negative. Urine drug screen was negative. CAT scan of the brain showed moderate cerebral atrophy and chronic small vessel ischemia with no acute abnormality. Chest x-ray shows extensive calcified pleural plaque. No acute lung disease. No heart failure. Patient was admitted to the intensive care unit as an overflow for selective care. He has subsequently developed a temperature max of 102.5. He has minimal response to sternal rub. Repeat troponin of 0.032. Influenza testing A and B negative. Carotid Doppler shows moderate to severe atherosclerotic changes bilaterally without hemodynamically significant stenosis. CTA of the chest showed no evidence of acute pulmonary embolism. Mild infiltrates and atelectatic changes in both lung bases worse on the right, possible asbestos exposure, fluid distended esophagus and possibility of inflammatory process of the esophagus not excluded. Ultrasound venous Doppler duplex of the bilateral lower extremities was negative for DVT. Echocardiogram reveals mild aortic stenosis, mild mitral regurgitation, mild tricuspid regurgitation, mild concentric left ventricular hypertrophy, EF 55-60%. Repeat CAT scan of the brain shows new cortical and subcortical hypodensity at the left parietal occipital junction and extensive hypodensity in the left cerebral hemisphere suggestive of evolving acute infarcts. Dr. Rendon was initially called for agnostic lumbar puncture but because he has received Lovenox subcu, lumbar puncture was not completed. Subsequently the CAT scan revealed numerous evolving strokes and consult with Dr. Dr. Rendon and lumbar puncture orders canceled. Patient has been started on ceftriaxone and ampicillin and vancomycin. Consults currently in place with Dr. Romo, Dr. Freeman, Dr. Kwok and Dr. Shultz. PT, OT, speech therapy all in place. 09/17: Patient's mental status is unchanged. Patient will be transferred selective care today. He is on Ativan for agitation. 09/18: Patient has continued to be unresponsive but this afternoon with minimal response. He is followed by neurology and on IV Decadron. Family may consider hospice care. EEG is abnormal due to presence of generalized slowing of the background rhythm consistent with moderate encephalopathy. Cardiology is following on an as-needed basis. 09/21: Discussed and detail patient's prognosis with patient's and 2 sounds. They may be leaning towards comfort care/hospice but are waiting for other family members to arrive. Patient pulled out his NG tube. Decadron has been discontinued. 09/22: Patient condition remains unchanged. He did pull out his NG tube yesterday and family has decided on no aggressive treatment such as PEG tube placement. Long discussion again today with family regarding comfort care. They are agreeable and willing to transfer patient to [facility] tomorrow. 09/23: Discharge diagnoses: 1. Acute evolving ischemic stroke in the left middle cerebral artery and left posterior cerebral artery distribution due to thrombosis with metabolic encephalopathy and comatose state. 2. Possible aspiration pneumonia found on repeat chest x-ray. 3. Syncopal episode at home most likely due to stroke. 4. Hypertension. 5. Hyperlipidemia. Discharge plan: [facility] with hospice Impression and plan of care have been directed as dictated by the signing physician. Robyn Cai nurse practitioner acting as scribe for signing physician. Patient Condition at Discharge: Stable Plan - Discharge Summary New Discharge Prescriptions: Atropine Ophth Soln 1% 5Ml [Isopto Atropine 1% 5Ml] 2 drops PO Q4HR PRN #1 bottle PRN Reason: Secretions LORazepam ORAL CONC [Ativan Intensol] 2 mg PO Q4HR PRN #30 ml PRN Reason: Anxiety Morphine Oral Soln [Roxanol Oral Soln Conc 20MG/ML] 5 mg PO Q4H PRN #30 ml PRN Reason: Pain Discharge Medication List Atropine Ophth Soln 1% 5Ml [Isopto Atropine 1% 5Ml] 2 drops PO Q4HR PRN #1 bottle 09/23/16 [Rx] LORazepam ORAL CONC [Ativan Intensol] 2 mg PO Q4HR PRN #30 ml 09/23/16 [Rx] Morphine Oral Soln [Roxanol Oral Soln Conc 20MG/ML] 5 mg PO Q4H PRN #30 ml 09/23 [Rx] Follow up Appointment(s)/Referral(s): Puma Velazquez MD [Primary Care Provider] - As Needed (Patient to make appointment only if needed.) Discharge Disposition: TRANSFER TO SNF/ECF
[2016-09-23] MEDS: ATORVASTATIN 10 MG TAB PO SCH (11:55)
== END 2016-09-23 14:15 | DRG 64 ==
LOC: EC 19:45 → 6SEL 22:12 → 6ICU 09-16 00:53 → 3SUR 09-18 03:30 → 5ONC 09-22 19:03
PROVIDERS: ADMIT Family Medicine; ATTEND Family Medicine
PROC: 0T9B70Z Drainage of Bladder with Drainage Device, Via Natural or Artificial Opening (ICD-10-PCS; 2016-09-16)
PROC: 0DH67UZ Insertion of Feeding Device into Stomach, Via Natural or Artificial Opening (ICD-10-PCS; principal; 2016-09-18)
PROC: 3E0G76Z Introduction of Nutritional Substance into Upper GI, Via Natural or Artificial Opening (ICD-10-PCS; 2016-09-18)
DX: I63.332 Cerebral infarction due to thrombosis of left posterior cerebral artery (principal); J69.0 Pneumonitis due to inhalation of food and vomit; G93.41 Metabolic encephalopathy; E78.5 Hyperlipidemia, unspecified; I10 Essential (primary) hypertension; Z66 Do not resuscitate; Z51.5 Encounter for palliative care; I08.3 Combined rheumatic disorders of mitral, aortic and tricuspid valves; I65.23 Occlusion and stenosis of bilateral carotid arteries; I67.9 Cerebrovascular disease, unspecified; R29.711 NIHSS score 11; R53.1 Weakness; R40.2430 Glasgow coma scale score 3-8, unspecified time; H91.90 Unspecified hearing loss, unspecified ear; I45.10 Unspecified right bundle-branch block; I25.10 Atherosclerotic heart disease of native coronary artery without angina pectoris; D72.829 Elevated white blood cell count, unspecified; R94.01 Abnormal electroencephalogram [EEG]; Z79.82 Long term (current) use of aspirin; Z82.49 Family history of ischemic heart disease and other diseases of the circulatory system; Z82.3 Family history of stroke; Z95.1 Presence of aortocoronary bypass graft; Z79.899 Other long term (current) drug therapy
CPT/HCPCS: 36415; 36600; 70450; 71010; 71275; 80048; 80053; 80061; 80306; 81001; 82550; 82553; 82805; 83036; 83735; 84100; 84484; 85025; 85027; 85379; 85610; 85730; 86663; 86664; 86665; 87040; 87086; 87502; 93005; 93306; 93880; 93970; 95816; 96361; 96365; 96375; 99285